=== PATIENT | female | born 1945 | race Caucasian/White ===

== ENCOUNTER 2019-12-19 02:26 | Emergency (ER) | payer MEDICARE, MEDICAID, SELFPAY ==
[2019-12-19 02:27] VITALS: BP 156/105; PULSE 101; RESP 18; TEMP 36.7; O2SAT 99
--- NOTE | 2019-12-19 02:28 | ED_ITS ---
Entered by Trudy David, acting as scribe for Dieudonne Solis MD HPI - Chest Pain General: Chief Complaint: Chest Pain Stated Complaint: CP/SOB Time Seen by Provider: 12/19/19 02:29 Source: patient and EMS Mode of arrival: EMS History of Present Illness: HPI narrative: 74 y/o female presents to the ED with complaint of intermittent chest pain and SOB since Monday. EMS reports she was awakened from sleep at 0130, this AM, with SOB, nausea and tightness in her chest. En route, pt was tachycardic and had an episode of SVT with a rate of 145. She reports a hx of Afib. complaint: chest pain and other (SOB) Onset (ago): hour(s) Timing of current episode: episodic Prior episodes: Yes Onset: during rest Severity: similar to previous episodes Quality: tightness Associated symptoms: Reports dyspnea and nausea; Deny abdominal pain, fever(s) or vomiting Review of Systems Const: Denies: fever, chills, body aches or change in appetite Eyes: Denies: blurry vision or eye discomfort ENMT: Denies: throat pain or dental pain Card: Reports: chest pain Resp: Reports: shortness of breath GI: Reports: nausea; Denies: abdominal pain, vomiting or diarrhea : Denies: painful urination Musc: Denies: neck pain or back pain Skin/Breast: Denies: rash Neuro: Denies: headache Psych: Denies: depression Caleb/Lymph: Denies: easy bruising All/Imm: Denies: hives [facility] ED PFSH: Medical History (Updated 12/19/19 @ 05:35 by Dieudonne Solis MD) Acquired hypothyroidism Anxiety Arteriosclerotic vascular disease B12 deficiency Colon polyp Dyslipidemia she feels she is intolerant to all statins Encounter for counseling for care management of patient with chronic conditions and complex health needs using nurse-based model Esophageal thickening Essential (primary) hypertension Essential tremor Excessive daytime sleepiness Lung nodule LLL 4-5 mm, new nodule in right upper lobe Myasthenia gravis Neuropathy Osteoarthritis of sacroiliac joint Osteoporosis Positive skin test for tuberculosis Type 2 diabetes mellitus Vitamin D deficiency Surgical History (Updated 11/05/19 @ 13:31 by Hemal Guillen DPM) History of bunionectomy Hx of appendectomy Hx of arthroscopy of right knee Hx of cholecystectomy Hx of hysterectomy, total (~1974) Hx of oral surgery Hx of tonsillectomy Social History Smoking and tobacco status: never smoked Alcohol intake: never Lives independently: Yes Household members: none Housing: Apartment Current occupational status: retired History of recent travel: No Current gender identity: Female Kalie/Ad[employer]ism: [employer] Physical Exam Const: COMMON NORMALS: oriented x3 GENERAL APPEARANCE: cooperative HENMT: COMMON NORMALS: normocephalic and head/scalp atraumatic HEAD & SCALP: normocephalic and atraumatic Eye: COMMON NORMALS: PERRL and EOMs intact bilaterally PUPIL: Yes PERRL Neck/C-Spine: COMMON NORMALS: full ROM and supple Chest: COMMONS NORMALS: inspection of chest normal and palpation of chest normal Resp: COMMON NORMALS: normal respiratory effort, no retractions, no use of accessory muscles and clear to auscultation bilaterally AUSCULTATION: clear to auscultation bilaterally Cardio: COMMON NORMALS: regular rhythm and no murmurs RATE: tachycardic RHYTHM: regular rhythm GI: COMMON NORMALS: normal to inspection, nondistended, normoactive bowel sounds, soft to palpation, non-tender and no masses PALPATION: Yes soft Extremity: COMMON NORMALS: normal to inspection and full ROM Neuro: COMMON NORMALS: oriented x3, moves all extremities and no focal motor deficits Psych: COMMON NORMALS: mental status grossly normal, thought process normal and cooperative THOUGHT PROCESS: normal thought process Skin: COMMON NORMALS: no rashes or lesions noted and no wounds GENERAL SKIN EXAM: no rashes or lesions noted Course 2 Vital Signs: Vital signs: Vital Signs Temperature 98.1 F 12/19/19 02:27 Pulse Rate 81 12/19/19 06:05 Respiratory Rate 17 12/19/19 06:05 Blood Pressure 122/68 12/19/19 06:05 Pulse Oximetry 94 12/19/19 06:05 MDM - Chest Pain MDM Narrative: Medical decision making narrative: Patient presents here with chest pain that is atypical in nature. Her initial and repeat troponins are n ormal. CT scan of her chest showed no pulmonary embolism or dissection. Patient is well-appearing here and is stable for discharge. Lab Data: Labs: Lab Results 12/19/19 12/19/19 12/19/19 Range/Units 02:56 02:56 02:56 WBC 7.7 (4.0-10.0) 10^3/ uL RBC 4.15 (4.1-5.3) 10^6/u L Hgb 13.8 (11.5-15.3) g/dL Hct 40.8 (37.0-47.0) % MCV 98.3 (81-99) fL MCH 33.3 (28.0-34.0) pg MCHC 33.8 (30.0-36.0) g/dL RDW 12.7 (12.1-15.1) % Plt Count 204 (130-400) 10^3/c mm MPV 12.2 H (7.4-10.4) fL Neut % (Auto) 64.8 % Lymph % (Auto) 23.6 % [place] % (Auto) 6.9 % Eos % (Auto) 3.9 % Baso % (Auto) 0.7 % Neut # (Auto) 5.0 (1.8-7.7) 10^3/u L Lymph # (Auto) 1.8 (0.8-4.8) 10^3/u L [place] # (Auto) 0.5 (0.2-0.9) 10^3/u L Eos # (Auto) 0.3 (0.0-0.8) 10^3/u L Baso # (Auto) 0.1 (0.0-0.1) 10^3/u L Nucleated RBC % (a uto) 0 % Nucleated RBCs # 0.0 /100WBC PT 12.60 (10.5-13.3) SECO NDS INR 0.95 (0.8-1.2) D-Dimer 0.84 H (0-0.59) ug/mIFE U Sodium 140 (136-145) mmol/L Potassium 4.1 (3.5-5.1) mmol/L Chloride 103 (98-107) mmol/L Carbon Dioxide 22 (22-29) mmol/L Anion Gap 19.1 H (5-19) BUN 13 (8-23) mg/dL Creatinine 0.9 (0.5-0.9) mg/dL Glucose 178 H (65-115) mg/dL Calculated Osmolal ity 291 (285-295) mOsm/k g Calcium 9.5 (8.5-10.5) mg/dL Total Bilirubin 0.2 (0.15-1.2) mg/dL AST 16 (0-32) U/L ALT 15 (0-33) U/L Alkaline Phosphata se 72 (35-105) IU/L Troponin T Baselin e (0-10) ng/mL Troponin T 120 Min [place] (0-10) ng/mL Delta Troponin T (0-10) ABS# Total Protein 7.5 (6.6-8.7) g/dL Albumin 3.9 (3.5-5.2) g/dL Globulin 3.6 (1.3-4.6) g/dL 12/19/19 12/19/19 Range/Units 02:56 04:29 WBC (4.0-10.0) 10^3/ uL RBC (4.1-5.3) 10^6/u L Hgb (11.5-15.3) g/dL Hct (37.0-47.0) % MCV (81-99) fL MCH (28.0-34.0) pg MCHC (30.0-36.0) g/dL RDW (12.1-15.1) % Plt Count (130-400) 10^3/c mm MPV (7.4-10.4) fL Neut % (Auto) % Lymph % (Auto) % [place] % (Auto) % Eos % (Auto) % Baso % (Auto) % Neut # (Auto) (1.8-7.7) 10^3/u L Lymph # (Auto) (0.8-4.8) 10^3/u L [place] # (Auto) (0.2-0.9) 10^3/u L Eos # (Auto) (0.0-0.8) 10^3/u L Baso # (Auto) (0.0-0.1) 10^3/u L Nucleated RBC % (a uto) % Nucleated RBCs # /100WBC PT (10.5-13.3) SECO NDS INR (0.8-1.2) D-Dimer (0-0.59) ug/mIFE U Sodium (136-145) mmol/L Potassium (3.5-5.1) mmol/L Chloride (98-107) mmol/L Carbon Dioxide (22-29) mmol/L Anion Gap (5-19) BUN (8-23) mg/dL Creatinine (0.5-0.9) mg/dL Glucose (65-115) mg/dL Calculated Osmolal ity (285-295) mOsm/k g Calcium (8.5-10.5) mg/dL Total Bilirubin (0.15-1.2) mg/dL AST (0-32) U/L ALT (0-33) U/L Alkaline Phosphata se (35-105) IU/L Troponin T Baselin e 9 (0-10) ng/mL Troponin T 120 Min [place] 9.15 (0-10) ng/mL Delta Troponin T 0.15 (0-10) ABS# Total Protein (6.6-8.7) g/dL Albumin (3.5-5.2) g/dL Globulin (1.3-4.6) g/dL EKG Data^: EKG 1: Attestation: I personally reviewed and interpreted this EKG as follows: EKG interpretation date: 12/19/19 EKG interpretation time: 02:47 Interpretation: sinus tach hr [address] or t wave abnormalities qrs 84 qtc 391 Discharge Plan Discharge Patient Disposition: Home, Self-Care Clinical Impression: Chest pain Qualifiers: Chest pain type: unspecified Qualified Code(s): R07.9 - Chest pain, unspecified Condition: Stable Prescriptions: No Action levothyroxine 100 mcg tablet 100 mcg PO ONCE RF: 0 glipizide 5 mg tablet 5 mg PO DAILY RF: 0 lisinopril 5 mg tablet 5 mg PO DAILY RF: 0 loratadine 10 mg capsule 10 mg PO ONCE RF: 0 albuterol sulfate [ProAir HFA] 90 mcg/actuation HFA aerosol inhaler 2 puff INHALATION Q6H PRN (Reason: Shortness Of Breath) RF: 0 nitroglycerin [Nitrostat] 0.4 mg tablet, sublingual 0.4 mg SUBLINGUAL Q5M PRN (Reason: Chest Pain) RF: 0 cyanocobalamin (vitamin B-12) 1,000 mcg/mL solution 1,000 mcg IM .MONTHLY RF: 0 (DME) pen needle, diabetic [Ultra-Thin II Ins Pen [place]] 29 gauge x 1/2 needle See Rx Instructions .ROUTE .MEDSUPPLY Qty: 30 RF: 0 Levemir FlexTouch U-100 Insuln 100 unit/mL (3 mL) insulin pen 50 unit SUBCUT .HS RF: 0 cholecalciferol (vitamin D3) 2,000 unit tablet 4,000 unit PO ONCE RF: 0 epinephrine 0.3 mg/0.3 mL auto-injector 0.3 mg IM ONCE PRN (Reason: anaphylaxis) RF: 0 (DME) True Metrix Glucose Test Strip Strip See Rx Instructions .ROUTE .MEDSUPPLY Qty: 10 RF: 0 ranitidine HCl 150 mg tablet 150 mg PO BID Qty: 60 RF: 2 mometasone [Nasonex] 50 mcg/actuation spray,non-aerosol 2 spray INTRANASAL DAILY PRN (Reason: allergy symptoms) Qty: 17 RF: 12 Discharge Orders: Discharge Order (Routine); Ordered 12/19/19 Ordered By: Dieudonne Solis Referrals: Nayeli Centeno APN [Family Provider] - Lynette Smalls MD [Primary Care Provider] - Discharge Diet: Advance as tolerated Discharge Activity: Resume usual activity Patient Instructions: Chest Pain (ED) Discharge Date/Time: 12/19/19 07:36 Coding Level of Care Code ED Spray Worker for Chg Fwd Exam Comprehensive The documentation recorded by the Frankie barajas Ashley, accurately reflects the service I personally performed and the decisions made by Will giraldo Korby, MD
--- NOTE | 2019-12-19 02:33 | XR_ITS ---
WS: [id number] Portable AP upright chest, 12/19/2019 Clinical Data: cp Comparison: Portable chest, 12/25/2018. Findings: No nodules, masses or effusions are seen. The heart is normal. The pulmonary vascularity is not increased. No pneumonia or pneumothorax is seen. The aortic arch and descending aorta show mild calcification and tortuosity. XR/XR chest 1V portable [id number] Impression: Atherosclerosis.
--- NOTE | 2019-12-19 02:33 | ECG_ITS ---
Measurements Intervals [place] Rate: 102 P: 63 NV: 176 QRS: 42 QRSD: 84 T: 42 QT: 332 QTc: 434 SINUS TACHYCARDIA ABNORMAL RHYTHM ECG INTERPRETATION BASED ON A DEFAULT AGE OF 40 YEARS Compared to ECG 12/25/2018 05:02:16 Sinus rhythm no longer present Electronically Signed On 12-19-2019 17:22:02 CDT by Wilfredo Franklin M.D. [email or web address]
[2019-12-19] MEDS: aspirin 81 mg Chew Tablet 324 MG PO (02:54)
[2019-12-19 02:58] VITALS: O2SAT 96
[2019-12-19 03:31] LABS: Alanine Aminotransferase 15 U/L (0-33); Albumin Level 3.9 g/dL (3.5-5.2); Alkaline Phosphatase 72 IU/L (35-105); Anion Gap 19.1 (5-19); Aspartate Amino Transferase 16 U/L (0-32); Blood Urea Nitrogen 13 mg/dL (8-23); Calcium 9.5 mg/dL (8.5-10.5); Carbon Dioxide 22 mmol/L (22-29); Chloride 103 mmol/L (98-107); Globulin 3.6 g/dL (1.3-4.6); Glucose 178 mg/dL (65-115); Osmolality Calculated 291 mOsm/kg (285-295); Potassium 4.1 mmol/L (3.5-5.1); Sodium 140 mmol/L (136-145); Total Bilirubin 0.2 mg/dL (0.15-1.2); Total Protein 7.5 g/dL (6.6-8.7)
[2019-12-19 03:34] LABS: Troponin(5th) Baseline 9 ng/mL (0-10)
[2019-12-19 03:40] VITALS: BP 127/87; PULSE 92; RESP 18; O2SAT 98
[2019-12-19 03:45] LABS: INR 0.95 (0.8-1.2)
[2019-12-19 03:46] LABS: D Dimer 0.84 ug/mIFEU (0-0.59)
[2019-12-19 03:50] LABS: Basophils # 0.1 10^3/uL (0.0-0.1); Basophils % 0.7 %; Eosinophils # 0.3 10^3/uL (0.0-0.8); Eosinophils % 3.9 %; Hematocrit 40.8 % (37.0-47.0); Hemoglobin 13.8 g/dL (11.5-15.3); Lymphocytes # 1.8 10^3/uL (0.8-4.8); Lymphocytes % 23.6 %; Mean Corpuscular HGB Conc 33.8 g/dL (30.0-36.0); Mean Corpuscular Hemoglobin 33.3 pg (28.0-34.0); Mean Corpuscular Volume 98.3 fL (81-99); Mean Platelet Volume 12.2 fL (7.4-10.4); Monocytes # 0.5 10^3/uL (0.2-0.9); Monocytes % 6.9 %; Neutrophils % 64.8 %; Nucleated Red Blood Cells % 0 %; Platelet Count 204 10^3/cmm (130-400); Red Blood Count 4.15 10^6/uL (4.1-5.3); Red Cell Distribution Width 12.7 % (12.1-15.1); White Blood Count 7.7 10^3/uL (4.0-10.0)
--- NOTE | 2019-12-19 04:03 | CTR_ITS ---
PROCEDURE INFORMATION: Exam: CT Angiography Chest With Contrast Exam date and time: 12/19/2019 4:13 AM Age: 74 years old Clinical indication: Cough and shortness of breath; Chest pain; Type not specified; Additional info: Cp TECHNIQUE: Imaging protocol: Computed tomographic angiography of the chest with intravenous contrast. 3D rendering: MIP and/or 3D reconstructed images were created by the technologist. Total DLP: 623.65 mGy-cm Radiation optimization: All CT scans at this facility use at least one of these dose optimization techniques: automated exposure control; mA and/or kV adjustment per patient size (includes targeted exams where dose is matched to clinical indication); or iterative reconstruction. Contrast material: VISI; Contrast volume: 95 ml; Contrast route: 20G; COMPARISON: CTA Chest-Pulmonary Emb [id number] 12/25/2018 3:19 AM FINDINGS: Pulmonary arteries: No dissection. No visualized embolism as characterized to the proximal segmental level. Aorta: Calcification of the aorta. Lungs: Lungs are well aerated without a focal area of consolidation. Pleural space: Unremarkable. No pneumothorax. No pleural effusion. Heart: No pericardial effusion Small amount of fluid within the superior pericardial recess. Mediastinum: Soft tissues of the mediastinum appear unremarkable. Small hiatal hernia. Thickening of the distal esophagus. Recommend further evaluation. Liver: 1 cm cyst right lobe of the liver posteriorly Gallbladder and bile ducts: Surgical clips in the region of the gallbladder fossa. Prominence of the biliary radicals likely related to the prior cholecystectomy and hence the reservoir effect. Please correlate with LFTs. Kidneys and ureters: 4 cm cyst left kidney Lymph nodes: Unremarkable. No enlarged lymph nodes. Bones/joints: Unremarkable. No acute fracture. Soft tissues: Unremarkable. Other findings: thoracic inlet is unremarkable. CT/CT angio chest PE protcl [id number] IMPRESSION: 1. No dissection. No visualized embolism as characterized to the proximal segmental level. 2. Lungs are well aerated without a focal area of consolidation. 3. Small hiatal hernia. Thickening of the distal esophagus. Recommend further evaluation. Radiation Dose CTDIVOL = (mGy): DLP = 623.65 (mGy-cm)
[2019-12-19 04:32] VITALS: PULSE 92; RESP 15; O2SAT 97
[2019-12-19] MEDS: hydrocortisone 100 mg/2 mL SDV IVP (04:36)
[2019-12-19] MEDS: diphenhydrAMINE 50 mg/mL SDV 1mL IVP (04:36)
[2019-12-19 04:52] LABS: Troponin 5 2HR 9.15 ng/mL (0-10); Troponin 5 2HR Delta 0.15 ABS# (0-10)
[2019-12-19 05:44] VITALS: BP 139/78; PULSE 88; RESP 17; O2SAT 96
[2019-12-19 06:05] VITALS: BP 122/68; PULSE 81; RESP 17; O2SAT 94
[2019-12-19] MEDS: iodixanol 320 mg/mL 100mL Btl IV (16:43)
== END 2019-12-19 07:36 | disposition home or self-care (01) ==
PROVIDERS: Emergency Provider Emergency Medicine; Family Provider Nurse Practitioner Family; PCP Family Medicine
DX: R07.9 Chest pain, unspecified (principal); I48.91 Unspecified atrial fibrillation; E03.9 Hypothyroidism, unspecified; E78.5 Hyperlipidemia, unspecified; I10 Essential (primary) hypertension; E11.40 Type 2 diabetes mellitus with diabetic neuropathy, unspecified; Z79.84 Long term (current) use of oral hypoglycemic drugs
CPT/HCPCS: 12345; 36415; 71045; 71275; 80053; 84484; 85025; 85378; 85610; 93005; 96374; 96375; 99283; 99284; J1200; J1720; Q9967

== ENCOUNTER 2019-12-25 23:32 | Emergency (ER) | payer MEDICARE, MEDICAID, SELFPAY ==
[2019-12-25 23:49] VITALS: BP 159/70; PULSE 84; RESP 16; TEMP 36.6; O2SAT 98; BMI 29.6
--- NOTE | 2019-12-25 23:56 | W.ED.GENADLT ---
HPI - General Adult General: Chief complaint: Shortness of Breath/Dyspnea Stated complaint: SORE THROAT/ KIDNEY PAIN Time Seen by Provider: 12/25/19 23:38 Source: patient Mode of arrival: EMS Limitations: no limitations History of Present Illness: HPI narrative: Patient is a 74-year-old female who presents to ED today with complaints of throat scratchiness, painful swallowing, and thinking it might close . Patient states her neighbor was recently spraying pesticides and thinks maybe she is having an allergic reaction to that. In addition patient states she has been having a lot of nasal congestion and postnasal drip so wonders if that could be causing her symptoms as well. Patient also states she has a history of myasthenia gravis and wonders if she is having a myasthenia reaction. Patient states she has not had any form of myasthenia reactions in several several years. She is not having any difficulty swallowing or controlling her secretions. She is not having any difficulty breathing or shortness of breath. Patient also has a separate complaint of right flank pain and believes she might have a kidney stone. She is not having any dysuria, frequency, urgency, hematuria. She has not had any abdominal pain, nausea, vomiting. She has not been running any fever/chills. Onset (ago): hour(s) Associated symptoms: Deny chest pain, dyspnea, headache(s), malaise, nausea, rash, palpitations, syncope or vomiting Review of Systems Const: Denies: fever, chills, body aches, change in appetite, change in weight, fatigue or malaise Eyes: Denies: change in vision, blurry vision or photophobia ENMT: Reports: throat pain, painful swallowing, nasal congestion and post nasal drip; Denies: uvular edema, enlarged tonsils, hoarseness, mouth pain, swelling of lips/tongue, ear discharge or nasal discharge Card: Denies: chest pain, palpitations, irregular heart rhythm, edema, lightheadedness, syncope or pre-syncope Resp: Denies: shortness of breath, productive cough, coughing up blood or chest congestion GI: Denies: abdominal pain, nausea, vomiting or diarrhea : Reports: flank pain; Denies: difficulty urinating, painful urination, urinary frequency, urinary urgency, urinary hesitancy, blood in urine or pelvic pain Musc: Denies: neck pain or back pain Skin/Breast: Denies: rash Neuro: Denies: headache, numbness in extremities, weakness in extremities or changes in sensation PFSH ED PFSH: Medical History (Updated 12/26/19 @ 01:44 by ROMINA Lopez) Acquired hypothyroidism Anxiety Arteriosclerotic vascular disease B12 deficiency Colon polyp Dyslipidemia she feels she is intolerant to all statins Encounter for counseling for care management of patient with chronic conditions and complex health needs using nurse-based model Esophageal thickening Essential (primary) hypertension Essential tremor Excessive daytime sleepiness Lung nodule LLL 4-5 mm, new nodule in right upper lobe Myasthenia gravis Neuropathy Osteoarthritis of sacroiliac joint Osteoporosis Positive skin test for tuberculosis Type 2 diabetes mellitus Vitamin D deficiency Surgical History (Updated 11/05/19 @ 13:31 by Hemal Guillen DPM) History of bunionectomy Hx of appendectomy Hx of arthroscopy of right knee Hx of cholecystectomy Hx of hysterectomy, total (~1974) Hx of oral surgery Hx of tonsillectomy Social History Smoking and tobacco status: never smoked Alcohol intake: never Lives independently: Yes Household members: none Housing: Apartment Current occupational status: retired History of recent travel: No Current gender identity: Female Kalie/P[employer]al: [employer] Physical Exam Const: COMMON NORMALS: no apparent distress, average body habitus, oriented x3, no limitations, healthy appearing, alert and well nourished HENMT: COMMON NORMALS: normocephalic, head/scalp atraumatic, hearing grossly normal bilaterally, external ears normal, EAC's normal, TM's normal bilaterally, external nose normal, nasal mucous membranes and turbinates normal, moist oral mucous membranes, oropharynx normal and gingiva normal HEAD & SCALP: normocephalic and atraumatic NOSE: external nose normal and nasal mucous membranes and turbinates normal EXTERNAL EAR: Yes external ears normal EXTERNAL AUDITORY CANAL: EAC's normal TYMPANIC MEMBRANE: TM's normal bilaterally MOUTH: oral and palatal mucosa normal, lip normal and tongue normal TEETH & GINGIVA: Yes edentulous THROAT: posterior oropharynx normal, tonsils normal and uvula midline; no uvular edema Neck/C-Spine: COMMON NORMALS: full ROM and no lymphadenopathy Resp: COMMON NORMALS: normal respiratory effort and clear to auscultation bilaterally AUSCULTATION: clear to auscultation bilaterally Cardio: COMMON NORMALS: regular rate and regular rhythm RATE: regular rate RHYTHM: regular rhythm GI: COMMON NORMALS: normal to inspection, nondistended, normoactive bowel sounds, soft to palpation, non-tender, no hepatosplenomegaly and no masses PALPATION: Yes soft and Yes no hepatosplenomegaly : BLADDER/KIDNEY EXAM: Yes CVA tenderness on the right Back/Pelvis: GENERAL BACK: Yes CVA tenderness Extremity: COMMON NORMALS: normal to inspection Neuro: COMMON NORMALS: oriented x3 SENSORIUM/ORIENTATION: Yes alert Skin: COMMON NORMALS: no rashes or lesions noted GENERAL SKIN EXAM: no rashes or lesions noted Course Vital Signs: Vital signs: Vital Signs Temperature 97.8 F 12/25/19 23:49 Pulse Rate 93 12/26/19 01:10 Respiratory Rate 16 12/26/19 01:10 Blood Pressure 175/77 12/26/19 01:10 Pulse Oximetry 98 12/26/19 01:10 MDM - General Adult MDM Narrative: Medical decision making narrative: Patient has no evidence of angioedema on her exam. Her symptoms of painful swallowing and throat itchiness are not consistent with a myasthenia gravis crisis especially in the absence of other respiratory symptoms. She had blood work and a UA performed because of the right flank pain and these are all found to be normal. She has no hematuria or signs of infection at this time. Recommend she follow-up with PCP for this. Patient was given steroids and Benadryl for the throat. She does not feel her symptoms have worsened at all throughout her stay. At this point patient is stable to be discharged. Lab Data: Labs: Lab Results 12/25/19 12/25/19 12/26/19 Range/Units 00:03 00:03 01:05 WBC 7.5 (4.0-10.0) 10^3/ uL RBC 4.09 L (4.1-5.3) 10^6/u L Hgb 13.4 (11.5-15.3) g/dL Hct 40.5 (37.0-47.0) % MCV 99.0 (81-99) fL MCH 32.8 (28.0-34.0) pg MCHC 33.1 (30.0-36.0) g/dL RDW 12.9 (12.1-15.1) % Plt Count 168 (130-400) 10^3/c mm MPV 12.6 H (7.4-10.4) fL Neut % (Auto) 61.0 % Lymph % (Auto) 28.4 % [place] % (Auto) 6.3 % Eos % (Auto) 3.1 % Baso % (Auto) 0.9 % Neut # (Auto) 4.6 (1.8-7.7) 10^3/u L Lymph # (Auto) 2.1 (0.8-4.8) 10^3/u L [place] # (Auto) 0.5 (0.2-0.9) 10^3/u L Eos # (Auto) 0.2 (0.0-0.8) 10^3/u L Baso # (Auto) 0.1 (0.0-0.1) 10^3/u L Nucleated RBC % (a uto) 0 % Nucleated RBCs # 0.0 /100WBC Sodium 137 (136-145) mmol/L Potassium 4.1 (3.5-5.1) mmol/L Chloride 100 (98-107) mmol/L Carbon Dioxide 26 (22-29) mmol/L Anion Gap 15.1 (5-19) BUN 12 (8-23) mg/dL Creatinine 0.9 (0.5-0.9) mg/dL Glucose 216 H (65-115) mg/dL Calculated Osmolal ity 287 (285-295) mOsm/k g Calcium 9.4 (8.5-10.5) mg/dL Total Bilirubin 0.4 (0.15-1.2) mg/dL AST 20 (0-32) U/L ALT 22 (0-33) U/L Alkaline Phosphata se 63 (35-105) IU/L Total Protein 7.4 (6.6-8.7) g/dL Albumin 4.0 (3.5-5.2) g/dL Globulin 3.4 (1.3-4.6) g/dL Urine Color Yellow (Yellow) Urine Appearance Clear (CLEAR) Urine pH 5 (5-7) Ur Specific Gravit y 1.015 (1.005-1.030) Urine Protein Neg (Negative) Urine Glucose (UA) Norm (Normal) Urine Ketones 1+ H (Negative) Urine Blood Neg (Negative) Urine Nitrate Negative (Negative) Urine Bilirubin Neg (NEGATIVE) Urine Urobilinogen Norm (Negative) mg/dL Ur Leukocyte Anum ase Negative (Negative) Discharge Plan Discharge Patient Disposition: Home, Self-Care Clinical Impression: Right flank pain, Pain in throat Condition: Stable Prescriptions: No Action levothyroxine 100 mcg tablet 100 mcg PO ONCE RF: 0 glipizide 5 mg tablet 5 mg PO DAILY RF: 0 lisinopril 5 mg tablet 5 mg PO DAILY RF: 0 loratadine 10 mg capsule 10 mg PO ONCE RF: 0 albuterol sulfate [ProAir HFA] 90 mcg/actuation HFA aerosol inhaler 2 puff INHALATION Q6H PRN (Reason: Shortness Of Breath) RF: 0 nitroglycerin [Nitrostat] 0.4 mg tablet, sublingual 0.4 mg SUBLINGUAL Q5M PRN (Reason: Chest Pain) RF: 0 cyanocobalamin (vitamin B-12) 1,000 mcg/mL solution 1,000 mcg IM .MONTHLY RF: 0 (DME) pen needle, diabetic [Ultra-Thin II Ins Pen [place]] 29 gauge x 1/2 needle See Rx Instructions .ROUTE .MEDSUPPLY Qty: 30 RF: 0 Levemir FlexTouch U-100 Insuln 100 unit/mL (3 mL) insulin pen 50 unit SUBCUT .HS RF: 0 cholecalciferol (vitamin D3) 2,000 unit tablet 4,000 unit PO ONCE RF: 0 epinephrine 0.3 mg/0.3 mL auto-injector 0.3 mg IM ONCE PRN (Reason: anaphylaxis) RF: 0 (DME) True Metrix Glucose Test Strip Strip See Rx Instructions .ROUTE .MEDSUPPLY Qty: 10 RF: 0 ranitidine HCl 150 mg tablet 150 mg PO BID Qty: 60 RF: 2 mometasone [Nasonex] 50 mcg/actuation spray,non-aerosol 2 spray INTRANASAL DAILY PRN (Reason: allergy symptoms) Qty: 17 RF: 12 Discharge Orders: Discharge Order (Routine); Ordered 12/26/19 Ordered By: Debbi Rangel Referrals: Nayeli Centeno APN [Family Provider] - Lynette Smalls MD [Primary Care Provider] - Discharge Diet: Usual diet Discharge Activity: Increase activity as tolerated Coding Level of Care Code ED Refrigerating Engineer Head for Chg Fwd Exam Comprehensive
[2019-12-26 00:16] LABS: Basophils # 0.1 10^3/uL (0.0-0.1); Basophils % 0.9 %; Eosinophils # 0.2 10^3/uL (0.0-0.8); Eosinophils % 3.1 %; Hematocrit 40.5 % (37.0-47.0); Hemoglobin 13.4 g/dL (11.5-15.3); Lymphocytes # 2.1 10^3/uL (0.8-4.8); Lymphocytes % 28.4 %; Mean Corpuscular HGB Conc 33.1 g/dL (30.0-36.0); Mean Corpuscular Hemoglobin 32.8 pg (28.0-34.0); Mean Platelet Volume 12.6 fL (7.4-10.4); Monocytes # 0.5 10^3/uL (0.2-0.9); Monocytes % 6.3 %; Neutrophils # 4.6 10^3/uL (1.8-7.7); Nucleated Red Blood Cells % 0 %; Platelet Count 168 10^3/cmm (130-400); Red Blood Count 4.09 10^6/uL (4.1-5.3); Red Cell Distribution Width 12.9 % (12.1-15.1); White Blood Count 7.5 10^3/uL (4.0-10.0)
[2019-12-26 00:32] LABS: Anion Gap 15.1 (5-19); Aspartate Amino Transferase 20 U/L (0-32); Blood Urea Nitrogen 12 mg/dL (8-23); Calcium 9.4 mg/dL (8.5-10.5); Carbon Dioxide 26 mmol/L (22-29); Chloride 100 mmol/L (98-107); Globulin 3.4 g/dL (1.3-4.6); Glucose 216 mg/dL (65-115); Osmolality Calculated 287 mOsm/kg (285-295); Potassium 4.1 mmol/L (3.5-5.1); Sodium 137 mmol/L (136-145); Total Bilirubin 0.4 mg/dL (0.15-1.2); Total Protein 7.4 g/dL (6.6-8.7)
[2019-12-26] MEDS: diphenhydrAMINE 50 mg/mL SDV 1mL 25 MG IM (01:00)
[2019-12-26 01:10] VITALS: BP 175/77; PULSE 93; RESP 16; O2SAT 98
[2019-12-26 01:25] LABS: Add Urine Microscopic? NO
[2019-12-26 01:26] LABS: Bilirubin Urine Neg (NEGATIVE); Blood Urine Neg (Negative); Glucose Urine UA Norm (Normal); Ketones Urine 1+ (Negative); Leukocyte Esterase Urine Negative (Negative); Nitrate Urine Negative (Negative); Protein Urine Neg (Negative); Specific Gravity, Urine 1.015 (1.005-1.030); Urine Appearance Clear (CLEAR); Urine Color Yellow (Yellow); Urobilinogen Urine Norm (Negative); pH Urine 5 (5-7)
[2019-12-26 01:27] LABS: Alanine Aminotransferase 22 U/L (0-33); Alkaline Phosphatase 63 IU/L (35-105)
[2019-12-26 03:01] VITALS: BP 141/82; PULSE 87; RESP 18; O2SAT 97
== END 2019-12-26 03:02 | disposition home or self-care (01) ==
PROVIDERS: Emergency Provider Physician Assistant; Family Provider Nurse Practitioner Family; PCP Family Medicine
DX: R10.9 Unspecified abdominal pain (principal); J02.9 Acute pharyngitis, unspecified; E03.9 Hypothyroidism, unspecified; E78.5 Hyperlipidemia, unspecified; I10 Essential (primary) hypertension; E11.40 Type 2 diabetes mellitus with diabetic neuropathy, unspecified; Z79.84 Long term (current) use of oral hypoglycemic drugs
CPT/HCPCS: 12345; 36415; 80053; 81003; 85025; 96372; 99282; 99283; A9270; J1200; J2930

== ENCOUNTER → 2020-02-24 16:30 | Outpatient (BNVA) | payer MEDICARE, MEDICAID, SELFPAY | PROVIDERS: Family Provider Nurse Practitioner Family; PCP Family Medicine; Visit Provider Family Medicine | DX: H66.92 Otitis media, unspecified, left ear (principal); E11.42 Type 2 diabetes mellitus with diabetic polyneuropathy; E03.9 Hypothyroidism, unspecified | CPT/HCPCS: 80053; 80061; 83036; 84443; 85025 ==

== ENCOUNTER → 2020-06-22 09:49 | Outpatient (BNVA) | payer MEDICARE, MEDICAID, SELFPAY | PROVIDERS: Family Provider Nurse Practitioner Family; PCP Family Medicine; Visit Provider Specialist | DX: R25.1 Tremor, unspecified (principal); G70.00 Myasthenia gravis without (acute) exacerbation | CPT/HCPCS: 99214 ==

== ENCOUNTER → 2020-07-14 13:24 | Outpatient (BNVA) | payer MEDICARE, MEDICAID, SELFPAY | PROVIDERS: Family Provider Nurse Practitioner Family; PCP Family Medicine; Visit Provider Nurse Practitioner Family | DX: Z11.59 Encounter for screening for other viral diseases (principal); J06.9 Acute upper respiratory infection, unspecified; Z20.828 Contact with and (suspected) exposure to other viral communicable diseases | CPT/HCPCS: 87635 ==

== ENCOUNTER → 2020-08-04 09:45 | Outpatient (BNVA) | payer MEDICARE, MEDICAID, SELFPAY | PROVIDERS: Family Provider Nurse Practitioner Family; PCP Family Medicine; Visit Provider Family Medicine | DX: E03.9 Hypothyroidism, unspecified (principal); E11.42 Type 2 diabetes mellitus with diabetic polyneuropathy; J45.20 Mild intermittent asthma, uncomplicated | CPT/HCPCS: 83036 ==

== ENCOUNTER → 2020-08-10 08:18 | Outpatient (BNVA) | payer MEDICARE, MEDICAID, SELFPAY | PROVIDERS: Family Provider Nurse Practitioner Family; PCP Family Medicine; Visit Provider Family Medicine | DX: E03.9 Hypothyroidism, unspecified (principal); E11.42 Type 2 diabetes mellitus with diabetic polyneuropathy | CPT/HCPCS: 80053; 80061; 84443 ==

== ENCOUNTER → 2020-12-15 11:03 | Outpatient (BNVA) | payer MEDICARE, MEDICAID, SELFPAY | PROVIDERS: Family Provider Nurse Practitioner Family; PCP Family Medicine; Visit Provider Family Medicine | DX: R10.11 Right upper quadrant pain (principal); E03.9 Hypothyroidism, unspecified; E11.42 Type 2 diabetes mellitus with diabetic polyneuropathy | CPT/HCPCS: 80053; 80061; 82150; 83036; 83690; 84443; 87086 ==

== ENCOUNTER 2020-12-21 23:10 | Emergency (ER) | payer MEDICARE, MEDICAID, SELFPAY ==
[2020-12-21 23:16] VITALS: BP 145/103; PULSE 126; RESP 16; TEMP 37.3; O2SAT 97; BMI 30.4
--- NOTE | 2020-12-21 23:21 | W.ED.GENADLT ---
HPI - General Adult General: Chief complaint: Urogenital-Female Stated complaint: FLANK PAIN/ UTI Time Seen by Provider: 12/21/20 23:12 Source: patient and RN notes reviewed Mode of arrival: EMS Limitations: no limitations History of Present Illness: HPI narrative: This patient presents to the emergency department with complaint of flank pain. This has been going on for about 3 weeks. Patient was diagnosed with a urinary tract infection with PCP and has been put on antibiotics but states he is still having intermittent flank pain. Patient states multiple allergies related to medications so does not want any pain medication upon arrival. Just evaluation. Onset (ago): week(s) (5) Pain Consistency: intermittent Associated symptoms: Deny chest pain, dyspnea, headache(s), nausea, rash, palpitations or vomiting Review of Systems General: Reports: 10 or more systems reviewed and unremarkable except in HPI and below Const: Denies: fever(s), chills, body aches or fatigue Eyes: Denies: change in vision or blurry vision ENMT: Denies: throat pain, hoarseness or mouth pain Card: Denies: chest pain or palpitations Resp: Denies: dyspnea GI: Denies: nausea or vomiting : Reports: flank pain; Denies: difficulty voiding, dysuria, urinary frequency, urinary urgency or urinary hesitancy Musc: Denies: neck pain, back pain, extremity pain, extremity swelling, joint pain, joint swelling, joint redness, joint warmth or limited range of motion Skin/Breast: Denies: rash Neuro: Denies: headache(s) Psych: Denies: anxiety or depression PFS ED PFSH: Medical History (Updated 12/22/20 @ 01:33 by Phillip Larry MD) Acquired hypothyroidism Anxiety Arteriosclerotic vascular disease B12 deficiency Colon polyp Dyslipidemia she feels she is intolerant to all statins Encounter for counseling for care management of patient with chronic conditions and complex health needs using nurse-based model Enrolled in chronic care management Esophageal thickening Essential (primary) hypertension Essential tremor Excessive daytime sleepiness Lung nodule LLL 4-5 mm, new nodule in right upper lobe Myasthenia gravis Neuropathy Osteoarthritis of sacroiliac joint Osteoporosis Positive skin test for tuberculosis Type 2 diabetes mellitus Vitamin D deficiency Surgical History History of bunionectomy Hx of appendectomy Hx of arthroscopy of right knee Hx of cholecystectomy Hx of hysterectomy, total (~1974) Hx of oral surgery Hx of tonsillectomy Family History Father , age 67 Stroke Cancer lung Mother Cancer melanoma, pancreatic CAD (coronary artery disease) multiple stents Social History Smoking and tobacco status: never smoked Alcohol intake: never Lives independently: Yes Household members: none Housing: Apartment Current occupational status: retired History of recent travel: No Current gender identity: Female Kalie/Confucianism: [employer] Female Reproductive History: Para: 2 Physical Exam Const: COMMON NORMALS: no acute distress, average body habitus, patient oriented x3, no limitations, healthy appearing, alert and well nourished HENMT: COMMON NORMALS: normocephalic, atraumatic, external ears normal, EAC's normal, TM's normal bilaterally, Normal external nose present and Normal nasal mucous membranes and turbinates present HEAD & SCALP: normocephalic and atraumatic NOSE: Normal external nose present and Normal nasal mucous membranes and turbinates present EXTERNAL EAR: Yes external ears normal EXTERNAL AUDITORY CANAL: EAC's normal TYMPANIC MEMBRANE: TM's normal bilaterally Neck/C-Spine: COMMON NORMALS: full ROM, no lymphadenopathy, supple, no meningeal signs, no JVD, Thyroid normal and No carotid bruits THYROID: Thyroid normal Chest: COMMONS NORMALS: normal inspection of the chest, normal palpation of entire chest wall, normal inspection of the breasts and normal palpation of the breasts Breast/axilla inspection: Yes normal inspection of the breasts BREAST/AXILLA PALPATION: Yes normal palpation of the breasts Resp: COMMON NORMALS: normal respiratory effort, No retractions, No use of accessory muscles, clear to auscultation bilaterally and percussion normal AUSCULTATION: clear to auscultation bilaterally PERCUSSION: percussion normal Cardio: COMMON NORMALS: no JVD, regular rate, regular rhythm, S1 normal heart sound present, S2 normal heart sound present, No gallops present (Cardio), No clicks present (Cardio), No murmurs present (Cardio), No rub (Cardio) and Peripheral pulses 2+ throughout RATE: regular rate RHYTHM: regular rhythm HEART SOUNDS: S1 normal heart sound present and S2 normal heart sound present PERIPHERAL PULSES: Peripheral pulses 2+ throughout GI: COMMON NORMALS: Normal to inspection, nondistended, normoactive bowel sounds present, Soft to palpation, non-tender, No hepatosplenomegaly present, no masses and no bruits PALPATION: Yes Soft to palpation and Yes No hepatosplenomegaly present : COMMON NORMALS: Yes no CVA tenderness, Yes normal external appearance, Yes normal appearance of the vagina, Yes normal appearance of the cervix, Yes normal bimanual exam, Yes No adnexal tenderness and Yes no masses BLADDER/KIDNEY EXAM: Yes no CVA tenderness BIMANUAL EXAM - VAGINA & UTERUS: Yes normal bimanual exam Back/Pelvis: COMMON NORMALS: no CVA tenderness, thoracic and lumbar spine normal to inspection, no thoracic nor lumbar tenderness, thoraco-lumbar ROM normal and straight leg raise negative bilaterally Extremity: COMMON NORMALS: normal to inspection, full ROM, capillary refill normal, no joint enlargement, no clubbing, cyanosis or edema, no calf tenderness and no pedal edema Neuro: COMMON NORMALS: patient oriented x3 SENSORIUM/ORIENTATION: Yes alert MENINGEAL SIGNS: Yes no meningeal signs Course Reevaluation(s): Reevaluation #1: Patient doing well with no complaints. Negative evaluation in the emergency department. I did discuss at length with patient better chronic conditions. Patient has multiple allergies to pain medications. Patient is instructed to follow-up with her primary care physician for any further evaluation or treatment. Time: 01:30 Vital Signs: Vital signs: Vital Signs Temperature 99.1 F 12/21/20 23:16 Pulse Rate 86 12/22/20 00:51 Respiratory Rate 16 12/22/20 00:51 Blood Pressure 121/90 12/22/20 00:51 Pulse Oximetry 97 12/22/20 00:51 MDM - General Adult Lab Data: Attestation: I reviewed the patient's lab results. Labs: Lab Results 12/21/20 12/21/20 12/22/20 Range/Units 00:03 00:03 00:00 WBC 11.8 H (4.0-10.0) 10^3/ uL RBC 4.22 (4.1-5.3) 10^6/u L Hgb 13.7 (11.5-15.3) g/dL Hct 40.7 (37.0-47.0) % MCV 96.4 (81-99) fL MCH 32.5 (28.0-34.0) pg MCHC 33.7 (30.0-36.0) g/dL RDW 12.9 (12.1-15.1) % Plt Count 186 (130-400) 10^3/c mm MPV 11.7 H (7.4-10.4) fL Neut % (Auto) 82.5 % Lymph % (Auto) 5.0 % [place] % (Auto) 7.0 % Eos % (Auto) 4.9 % Baso % (Auto) 0.3 % Neut # (Auto) 9.78 H (1.8-7.7) 10^3/u L Lymph # (Auto) 0.6 L (0.8-4.8) 10^3/u L [place] # (Auto) 0.8 (0.2-0.9) 10^3/u L Eos # (Auto) 0.6 (0.0-0.8) 10^3/u L Baso # (Auto) 0.0 (0.0-0.1) 10^3/u L Nucleated RBC % (a uto) 0 % Nucleated RBCs # 0.0 /100WBC Sodium 134 L (136-145) mmol/L Potassium 4.0 (3.5-5.1) mmol/L Chloride 97 L (98-107) mmol/L Carbon Dioxide 25 (22-29) mmol/L Anion Gap 16.0 (5-19) BUN 16 (8-23) mg/dL Creatinine 0.8 (0.5-0.9) mg/dL GFR Calculation Not Reportable Glucose 295 H (65-115) mg/dL Calculated Osmolal ity 290 (285-295) mOsm/k g Calcium 9.3 (8.5-10.5) mg/dL Total Bilirubin 0.4 (0.15-1.2) mg/dL AST 12 (0-32) U/L ALT 15 (0-33) U/L Alkaline Phosphata se 82 (35-105) IU/L Total Protein 7.1 (6.6-8.7) g/dL Albumin 4.1 (3.5-5.2) g/dL Globulin 3.0 (1.3-4.6) g/dL Urine Color Yellow (Yellow) Urine Appearance Clear (CLEAR) Urine pH 5 (5-7) Ur Specific Gravit y 1.020 (1.005-1.030) Urine Protein Neg (Negative) Urine Glucose (UA) 3+ H (Normal) Urine Ketones 1+ H (Negative) Urine Blood Neg (Negative) Urine Nitrate Negative (Negative) Urine Bilirubin Neg (Negative) Urine Urobilinogen Norm (Negative) mg/dL Ur Leukocyte Anum ase Negative (Negative) Imaging Data^: CT Abd/Pel: Attestation: I personally reviewed and interpreted this imaging study as follows: My impression: Negative for any acute findings Radiologist's impression: Negative for any acute findings. Discharge Plan Discharge Patient Disposition: Home Clinical Impression: Back pain, Diabetic peripheral neuropathy associated with type 2 diabetes mellitus Condition: Stable Prescriptions: No Action mometasone [Nasonex] 50 mcg/actuation spray,non-aerosol 2 spray INTRANASAL DAILY PRN (Reason: allergy symptoms) Qty: 17 RF: 12 nitrofurantoin monohyd/m-cryst [Macrobid] 100 mg capsule 100 mg PO Q12H 7 Days Qty: 14 RF: 0 glipizide 5 mg tablet 5 mg PO DAILY RF: 0 lisinopril 5 mg tablet 5 mg PO DAILY RF: 0 nitroglycerin [Nitrostat] 0.4 mg tablet, sublingual 0.4 mg SUBLINGUAL Q5M PRN (Reason: Chest Pain) RF: 0 (DME) True Metrix Glucose Test Strip Strip See Rx Instructions .ROUTE .MEDSUPPLY Qty: 10 RF: 0 levothyroxine [Synthroid] 100 mcg tablet See Rx Instructions .ROUTE .COMPLEX Qty: 90 RF: 5 albuterol sulfate [ProAir HFA] 90 mcg/actuation HFA aerosol inhaler 2 puff INHALATION Q6H PRN (Reason: Shortness Of Breath) Qty: 8.5 RF: 3 cyanocobalamin (vitamin B-12) 1,000 mcg/mL solution See Rx Instructions .ROUTE .COMPLEX Qty: 3 RF: 2 pen needle, diabetic [UltiCare Pen Needle] 32 gauge x 5/32 needle See Rx Instructions .ROUTE .COMPLEX Qty: 100 RF: 2 insulin detemir U-100 [Levemir FlexTouch U-100 Insuln] 100 unit/mL (3 mL) insulin pen See Rx Instructions .ROUTE .COMPLEX Qty: 15 RF: 2 Discharge Orders: Discharge ED (Routine); Ordered 12/22/20 Ordered By: Phillip Larry Referrals: Lynette Smalls MD [Primary Care Provider] - Discharge Diet: Advance as tolerated Discharge Activity: Resume usual activity Patient Instructions: Opioid Safety Activity Restrictions/Additional Instructions: Patient is to continue all medications. Follow-up with her PCP in 2 to 3 days. Alternate heat and ice for back pain. Coding Level of Care Code ED Sodium Methylate Operator for Chg Fwd Exam Comprehensive
--- NOTE | 2020-12-21 23:23 | CTR_ITS ---
PROCEDURE INFORMATION: Exam: CT Abdomen And Pelvis Without Contrast Exam date and time: 12/21/2020 11:40 PM Age: 75 years old Clinical indication: Abdominal pain; Flank; Right; Prior surgery; Surgery date: 6+ months; Surgery type: Hyst, appy; Additional info: Flank pain TECHNIQUE: Imaging protocol: Computed tomography of the abdomen and pelvis without contrast. Radiation optimization: All CT scans at this facility use at least one of these dose optimization techniques: automated exposure control; mA and/or kV adjustment per patient size (includes targeted exams where dose is matched to clinical indication); or iterative reconstruction. COMPARISON: CT Abdomen/Pelvis Renal [id number] 08/25/2014 9:35 AM RADIATION DOSE METRICS: Total DLP (mGy-cm): 1605.59 FINDINGS: Lungs: Diffuse reticular interstitial lung changes. Liver: Normal size. Small simple cyst in the hepatic dome stable from prior. Gallbladder and bile ducts: Cholecystectomy. Nondilated biliary system. Pancreas: Normal. No ductal dilation. Spleen: Normal. No splenomegaly. Adrenal glands: Normal. No mass. Kidneys and ureters: Simple exophytic left renal cortical cyst. Mild growth from comparison in 2013. No hydronephrosis. No renal stones. No suspicious renal mass. Stomach and bowel: No inflammatory changes of bowel or mesentery. No evidence of bowel obstruction or bowel perforation. Moderate fecal volume. Appendix: Appendectomy. Intraperitoneal space: No abdominopelvic fluid collection. Negative for pneumoperitoneum. Vasculature: Diffuse atherosclerosis of abdominal aorta without aneurysm. Lymph nodes: Unremarkable. No enlarged lymph nodes. Urinary bladder: Unremarkable as visualized. Reproductive: Hysterectomy. Bones/joints: Rightward convex scoliosis of the mid lumbar spine mildly increased from prior. Severe arthritis of the right hip joint similar to prior. No acute pathologic fractures or focal suspicious bone lesion. Soft tissues: Lumbar paraspinal muscles are symmetric. CT/CT abdomen pelvis wo con [id number] IMPRESSION: No acute pathology in the abdomen or pelvis. COMMENTS: Consistent with the [employer]'s Incidental Findings Committee white paper (J Am Silvano Radiol 2018): Any incidental renal lesion less than 1 cm or classified as too small to characterize, or any incidental cystic renal lesion characterized as simple-appearing, is likely benign. No follow-up imaging is recommended for these lesions per consensus recommendations based on imaging criteria. Radiation Dose CTDIVOL = (mGy): DLP = 1605.59 (mGy-cm)
[2020-12-22 00:09] LABS: Basophils % 0.3 %; Eosinophils # 0.6 10^3/uL (0.0-0.8); Eosinophils % 4.9 %; Hematocrit 40.7 % (37.0-47.0); Hemoglobin 13.7 g/dL (11.5-15.3); Lymphocytes # 0.6 10^3/uL (0.8-4.8); Mean Corpuscular HGB Conc 33.7 g/dL (30.0-36.0); Mean Corpuscular Hemoglobin 32.5 pg (28.0-34.0); Mean Corpuscular Volume 96.4 fL (81-99); Mean Platelet Volume 11.7 fL (7.4-10.4); Monocytes # 0.8 10^3/uL (0.2-0.9); Neutrophils # 9.78 10^3/uL (1.8-7.7); Neutrophils % 82.5 %; Nucleated Red Blood Cells % 0 %; Platelet Count 186 10^3/cmm (130-400); Red Blood Count 4.22 10^6/uL (4.1-5.3); Red Cell Distribution Width 12.9 % (12.1-15.1); White Blood Count 11.8 10^3/uL (4.0-10.0)
[2020-12-22 00:11] LABS: Add Urine Microscopic? NO
[2020-12-22 00:16] LABS: Glucose Urine UA 3+ (Normal); Protein Urine Neg (Negative); Urine Appearance Clear (CLEAR); Urine Color Yellow (Yellow); pH Urine 5 (5-7)
[2020-12-22 00:17] LABS: Bilirubin Urine Neg (Negative); Blood Urine Neg (Negative); Ketones Urine 1+ (Negative); Leukocyte Esterase Urine Negative (Negative); Nitrate Urine Negative (Negative); Urobilinogen Urine Norm (Negative)
[2020-12-22 00:46] LABS: Alanine Aminotransferase 15 U/L (0-33); Albumin Level 4.1 g/dL (3.5-5.2); Alkaline Phosphatase 82 IU/L (35-105); Aspartate Amino Transferase 12 U/L (0-32); Blood Urea Nitrogen 16 mg/dL (8-23); Calcium 9.3 mg/dL (8.5-10.5); Carbon Dioxide 25 mmol/L (22-29); Chloride 97 mmol/L (98-107); Glucose 295 mg/dL (65-115); Osmolality Calculated 290 mOsm/kg (285-295); Sodium 134 mmol/L (136-145); Total Bilirubin 0.4 mg/dL (0.15-1.2); Total Protein 7.1 g/dL (6.6-8.7)
[2020-12-22 00:51] VITALS: BP 121/90; PULSE 86; RESP 16; O2SAT 97
[2020-12-22] MEDS: sodium chloride 0.9% 500 ML 999 ML IV (01:21)
[2020-12-22 02:00] VITALS: BP 118/91; PULSE 89; RESP 17; TEMP 37.3; O2SAT 97
== END 2020-12-22 02:02 | disposition home or self-care (01) ==
PROVIDERS: Emergency Provider Emergency Medicine; PCP Family Medicine
DX: M54.9 Dorsalgia, unspecified (principal); E11.42 Type 2 diabetes mellitus with diabetic polyneuropathy; Z79.4 Long term (current) use of insulin; E78.5 Hyperlipidemia, unspecified; I10 Essential (primary) hypertension
CPT/HCPCS: 74176; 80053; 81003; 85025; 99283; J7040

== ENCOUNTER → 2020-12-29 11:12 | Outpatient (BNVA) | payer MEDICARE, MEDICAID, SELFPAY | PROVIDERS: PCP Family Medicine; Visit Provider Family Medicine | DX: N39.0 Urinary tract infection, site not specified (principal) | CPT/HCPCS: 81000 ==

== ENCOUNTER → 2021-04-07 09:34 | Outpatient (BNVA) | payer MEDICARE, MEDICAID, SELFPAY | PROVIDERS: PCP Family Medicine; Visit Provider Family Medicine | DX: G45.9 Transient cerebral ischemic attack, unspecified (principal); E03.9 Hypothyroidism, unspecified; E11.42 Type 2 diabetes mellitus with diabetic polyneuropathy; E78.5 Hyperlipidemia, unspecified; E53.8 Deficiency of other specified B group vitamins | CPT/HCPCS: 80053; 80061; 82607; 83036; 84443; 85025 ==

== ENCOUNTER 2021-04-09 17:07 | Inpatient (IN) | payer MEDICARE, MEDICAID, SELFPAY ==
[2021-04-09 17:32] VITALS: BP 187/106; PULSE 112; RESP 18; TEMP 36.5; O2SAT 96; BMI 30.4
--- NOTE | 2021-04-09 17:44 | XRR_ITS ---
PROCEDURE INFORMATION: Exam: XR Chest Exam date and time: 04/09/2021 5:44 PM Age: 75 years old Clinical indication: Shortness of breath; Additional info: Reduced breath sounds TECHNIQUE: Imaging protocol: XR of the chest. Views: 1 view. COMPARISON: CR XR chest 1V portable [id number] 12/19/2019 2:43 AM FINDINGS: Lungs: See Heart/Mediastinum finding. Pleural spaces: Unremarkable. No pleural effusion. No pneumothorax. Heart/Mediastinum: Mild cardiomegaly and pulmonary vascular congestion. Bones/joints: Unremarkable. XR/XR chest 1V portable [id number] IMPRESSION: Mild cardiomegaly and pulmonary vascular congestion.
--- NOTE | 2021-04-09 17:49 | ECG_ITS ---
[facility] Test Date: 2021-04-09 Pat Name: Monik Naidu Department: Room: Gender: Female Global Program Director: : 1945 Requested By: Cleve Goldberg Order Number: [id number] Jamie MD: Michael Becerra M.D. Measurements Intervals [place] Rate: 111 P: 42 FL: 169 QRS: 13 QRSD: 81 T: 35 QT: 315 QTc: 428 Interpretive Statements SINUS TACHYCARDIA LOW QRS VOLTAGE IN PRECORDIAL LEADS [QRS DEFLECTION < 1.0 mV IN CHEST LEADS] NONSPECIFIC ST & T-WAVE ABNORMALITY ABNORMAL RHYTHM ECG Compared to ECG 12/19/2019 02:36:29 Low QRS voltage now present T-wave abnormality now present Electronically Signed On 04-09-2021 22:09:07 CDT by Michael Becerra M.D. [id number] f
[2021-04-09 18:03] VITALS: BP 165/94; PULSE 98; RESP 20; O2SAT 95
[2021-04-09 19:04] LABS: Add Urine Microscopic? NO; Charge for UA Resulting for Rev
[2021-04-09 19:14] LABS: Bilirubin Urine Neg (Negative); Blood Urine Neg (Negative); Glucose Urine UA Trace (Normal); Ketones Urine Negative (Negative); Leukocyte Esterase Urine Negative (Negative); Nitrate Urine Negative (Negative); Protein Urine Neg (Negative); Specific Gravity, Urine 1.005 (1.005-1.030); Urine Appearance Clear (CLEAR); Urine Color Yellow (Yellow); Urobilinogen Urine Norm (Negative); pH Urine 7 (5-7)
[2021-04-09 19:32] LABS: Basophils # 0.1 10^3/uL (0.0-0.1); Eosinophils # 0.3 10^3/uL (0.0-0.8); Eosinophils % 3.5 %; Hematocrit 39.6 % (37.0-47.0); Lymphocytes # 2.1 10^3/uL (0.8-4.8); Lymphocytes % 26.2 %; Mean Corpuscular HGB Conc 32.8 g/dL (30.0-36.0); Mean Corpuscular Volume 100.5 fL (81-99); Mean Platelet Volume 12.1 fL (7.4-10.4); Monocytes # 0.5 10^3/uL (0.2-0.9); Monocytes % 5.6 %; Neutrophils # 5.06 10^3/uL (1.8-7.7); Neutrophils % 63.1 %; Nucleated Red Blood Cells % 0 %; Platelet Count 189 10^3/cmm (130-400); Red Blood Count 3.94 10^6/uL (4.1-5.3); Red Cell Distribution Width 13.1 % (12.1-15.1)
[2021-04-09 19:49] LABS: D Dimer 0.66 ug/mIFEU (0-0.59)
--- NOTE | 2021-04-09 19:49 | ECG_ITS ---
[facility] Test Date: 2021-04-09 Pat Name: Monik Naidu Department: Room: Gender: Female Charge Entry: : 1945 Requested By: Cleve Goldberg Order Number: [id number] Jamie MD: Michael Becerra M.D. Measurements Intervals [place] Rate: 98 P: 54 KS: 148 QRS: 30 QRSD: 85 T: 34 QT: 367 QTc: 470 Interpretive Statements SINUS RHYTHM Compared to ECG 12/19/2019 02:36:29 Sinus tachycardia no longer present Electronically Signed On 04-09-2021 21:35:35 CDT by Michael Becerra M.D. [id number]
[2021-04-09 19:53] LABS: Lactate (Lactic Acid level) 1.7 mmol/L (0.5-2.2)
[2021-04-09 19:55] LABS: Troponin(5th) Baseline 11 ng/L (0-10)
[2021-04-09 20:03] LABS: Alanine Aminotransferase 16 U/L (0-33); Albumin Level 4.1 g/dL (3.5-5.2); Alkaline Phosphatase 69 IU/L (35-105); Anion Gap 16.1 (5-19); Aspartate Amino Transferase 17 U/L (0-32); Blood Urea Nitrogen 15 mg/dL (8-23); Calcium 8.8 mg/dL (8.5-10.5); Carbon Dioxide 24 mmol/L (22-29); Chloride 104 mmol/L (98-107); Globulin 2.1 g/dL (1.3-4.6); Glucose 170 mg/dL (65-115); NT Pro B Type Natriuretic Pept 44 pg/mL (0-450); Osmolality Calculated 295 mOsm/kg (285-295); Potassium 4.1 mmol/L (3.5-5.1); Sodium 140 mmol/L (136-145); Thyroid Stimulating Hormone 1.89 uIU/mL (0.27-4.20); Total Bilirubin 0.2 mg/dL (0.15-1.2); Total Protein 6.2 g/dL (6.6-8.7)
--- NOTE | 2021-04-09 20:28 | CTR_ITS ---
PROCEDURE INFORMATION: Exam: CT Head Without Contrast Exam date and time: 04/09/2021 8:28 PM Age: 75 years old Clinical indication: Dizziness; Additional info: PT states feels like someone is stabbing me in the ear with a knife x 3 weeks on and off. Dizziness, unbalanced, pain on the left side of head TECHNIQUE: Imaging protocol: Computed tomography of the head without contrast. Radiation optimization: All CT scans at this facility use at least one of these dose optimization techniques: automated exposure control; mA and/or kV adjustment per patient size (includes targeted exams where dose is matched to clinical indication); or iterative reconstruction. COMPARISON: CT neck wo con [id number] 04/04/2016 8:23 AM RADIATION DOSE METRICS: Total DLP (mGy-cm): 929.98 FINDINGS: Brain: Mild cortical volume loss. Mild hypodensities in supratentorial periventricular and subcortical white matter, consistent with microangiopathy. No intracranial hemorrhage. Cerebral ventricles: No ventriculomegaly. Paranasal sinuses: Mild mucosal thickening in the ethmoid air cells. No air-fluid levels. Mastoid air cells: Visualized mastoid air cells are well aerated. Vasculature: No hyperdense artery. Bones/joints: Unremarkable. No acute fracture. Soft tissues: Unremarkable. CT/CT head wo con* [id number] IMPRESSION: 1. No acute intracranial abnormality. Radiation Dose CTDIVOL = (mGy): DLP = 929.98 (mGy-cm)
[2021-04-09 21:13] LABS: Troponin 5 2HR 11.01 ng/L (0-10); Troponin 5 2HR Delta 0.01 ABS# (0-10)
--- NOTE | 2021-04-09 21:22 | NMR_ITS ---
PROCEDURE INFORMATION: Exam: NE Lung Perfusion Exam date and time: 04/09/2021 9:22 PM Age: 75 years old Clinical indication: Abnormal findings; Abnormal diagnostic tests; Elevated d-dimer; Other: Dizziness; Additional info: Dyspnea/cp TECHNIQUE: Imaging protocol: Nuclear pulmonary perfusion imaging was performed. Views: Perfusion acquired with multiple projections. Radiopharmaceutical: 5.4 mCi Tc-99m MAA (Macroaggregated Albumin), IV. COMPARISON: CR (CHEST, ) 04/09/2021 6:03 PM FINDINGS: Perfusion: No perfusion defect. NE/NE pul perfusion [id number] IMPRESSION: Normal lung perfusion exam.
[2021-04-09 21:24] VITALS: BP 154/80; PULSE 91; RESP 17; O2SAT 96
--- NOTE | 2021-04-09 22:30 | CTR_ITS ---
PROCEDURE INFORMATION: Exam: CT Abdomen And Pelvis Without Contrast Exam date and time: 04/09/2021 10:30 PM Age: 75 years old Clinical indication: Abdominal pain; Flank; Right; Prior surgery; Surgery type: Hyst, appy; Additional info: Right flank pain TECHNIQUE: Imaging protocol: Computed tomography of the abdomen and pelvis without contrast. Radiation optimization: All CT scans at this facility use at least one of these dose optimization techniques: automated exposure control; mA and/or kV adjustment per patient size (includes targeted exams where dose is matched to clinical indication); or iterative reconstruction. COMPARISON: CT abdomen pelvis con [id number] 12/22/2020 12:27 AM RADIATION DOSE METRICS: Total DLP (mGy-cm): 1223.58 FINDINGS: Liver: Normal. No mass. Gallbladder and bile ducts: Cholecystectomy. Pancreas: Normal. No ductal dilation. Spleen: Normal. No splenomegaly. Adrenal glands: Normal. No mass. Kidneys and ureters: Left kidney renal cysts, some of which are parapelvic in nature. Stomach and bowel: Diverticulosis without diverticulitis. Constipation. Appendix: No evidence of appendicitis. Intraperitoneal space: Unremarkable. No free air. No significant fluid collection. Vasculature: Unremarkable. No abdominal aortic aneurysm. Lymph nodes: Unremarkable. No enlarged lymph nodes. Urinary bladder: Unremarkable as visualized. Reproductive: Unremarkable as visualized. Bones/joints: Severe right hip osteoarthritis with a subchondral degenerative cysts. Soft tissues: Unremarkable. CT/CT abdomen pelvis con [id number] IMPRESSION: 1. Negative for acute inflammatory process in the abdomen or pelvis. 2. Cholecystectomy. 3. Left kidney renal cysts, some of which are parapelvic in nature. 4. Diverticulosis without diverticulitis. 5. Constipation. 6. Severe right hip osteoarthritis with a subchondral degenerative cysts. COMMENTS: Consistent with the [employer]'s Incidental Findings Committee white paper (J Am Silvano Radiol 2018): Any incidental renal lesion less than 1 cm or classified as too small to characterize, or any incidental cystic renal lesion characterized as simple-appearing, is likely benign. No follow-up imaging is recommended for these lesions per consensus recommendations based on imaging criteria. Radiation Dose CTDIVOL = (mGy): DLP = 1223.58 (mGy-cm)
--- NOTE | 2021-04-09 22:32 | W.ED.DIZZY ---
HPI - Dizziness General: Chief Complaint: Dizziness Stated Complaint: HEADACHE/ VERTIGO Time Seen by Provider: 04/09/21 17:29 History of Present Illness: HPI Narrative: The patient is a 75-year-old female with past medical history of myasthenia gravis in remission for 5 years comes to the ER complaining of feeling like she is going to pass out when she stands up for the past week. She says she has fallen multiple times at home and has a slight dizziness with it as well. She says she feels unsteady on her feet and slightly shaky as well. She also complains separately that her legs are slightly swollen bilaterally and that her right kidney is giving her pain. She has a history of kidney stones. On arrival to the ER EMS gave her a liter of fluids her heart rate was 120 when they picked her up at home and she was very hypertensive. Heart rate after 750 cc was 110. Patient also felt she had a TIA in her sleep and cannot describe the symptoms any further. She also complains of chest pains during the daytime but she is not having pain in the ER today. The most concerning symptom to her is the lightheadedness when standing up as she is having multiple falls at home. She has an appointment with Dr. Khan again in June but is concerned that is too far away. MD elicited complaint: near syncope Timing: gradual onset Severity: moderate Description: near-syncope Exacerbating factors: movement/ambulation and change in body position Relieving factors: nothing Associated symptoms: Reports no associated symptoms and headache(s); Denies chest pain, nasal congestion or palpitations Associated neuro symptoms: Reports no associated symptoms; Deny confusion or numbness in extremities Review of Systems General: Reports: 10 or more systems reviewed and unremarkable except in HPI and below Const: Denies: fatigue Eyes: Denies: change in vision, blurry vision or eye redness ENMT: Denies: throat pain, swelling of lips/tongue, ear or mastoid pain or nasal congestion Card: Denies: chest pain, palpitations, irregular heart rhythm, edema, dyspnea on exertion or orthopnea Resp: Denies: dyspnea, productive cough or non-productive cough GI: Denies: abdominal pain, diarrhea or GI cramping : Denies: flank pain, difficulty voiding, urinary frequency or urinary urgency Musc: Denies: neck pain, back pain, extremity pain, joint pain, joint redness, limited range of motion or muscle weakness Skin/Breast: Denies: rash, pruritus, erythema, skin pain or skin tenderness Neuro: Reports: headache(s) and frequent falls; Denies: numbness in extremities, weakness in extremities, sensory changes, difficulty walking, dizziness, confusion or Slurred speech present Psych: Denies: anxiety or depression Endo: Denies: polyuria All/Imm: Denies: urticaria, throat swelling or tongue swelling PFSH ED PFSH: Medical History Acquired hypothyroidism Anxiety Arteriosclerotic vascular disease B12 deficiency Colon polyp Dyslipidemia she feels she is intolerant to all statins Encounter for counseling for care management of patient with chronic conditions and complex health needs using nurse-based model Enrolled in chronic care management Esophageal thickening Essential (primary) hypertension Essential tremor Excessive daytime sleepiness Lung nodule LLL 4-5 mm, new nodule in right upper lobe Myasthenia gravis Neuropathy Osteoarthritis of sacroiliac joint Osteoporosis Positive skin test for tuberculosis Type 2 diabetes mellitus Vitamin D deficiency Surgical History History of bunionectomy Hx of appendectomy Hx of arthroscopy of right knee Hx of cholecystectomy Hx of hysterectomy, total (~1974) Hx of oral surgery Hx of tonsillectomy Family History Father , age 67 Stroke Cancer lung Mother Cancer melanoma, pancreatic CAD (coronary artery disease) multiple stents Social History Smoking and tobacco status: never smoked Alcohol intake: never Lives independently: Yes Household members: none Housing: Apartment Current occupational status: retired History of recent travel: No Current gender identity: Female Kalie/[employer]: [employer] Female Reproductive History: Para: 2 Physical Exam Const: COMMON NORMALS: no acute distress, average body habitus, patient oriented x3, no limitations, healthy appearing, alert and well nourished GENERAL APPEARANCE: cooperative, comfortable, well kempt and well developed ORIENTATION/CONSCIOUSNESS: Yes awake, Yes oriented to person, Yes oriented to place and Yes oriented to time HENMT: COMMON NORMALS: normocephalic, external ears normal and Normal external nose present HEAD & SCALP: normal to inspection and normocephalic NOSE: Normal external nose present EXTERNAL EAR: Yes external ears normal MOUTH: Normal oral and palatal mucosa present THROAT: posterior oropharynx normal Eye: COMMON NORMALS: Equal, round and reactive pupils present and EOMs intact bilaterally GENERAL EYE: appearance normal, both eyes and all related structures PUPIL: Yes Equal, round and reactive pupils present Neck/C-Spine: COMMON NORMALS: full ROM, no lymphadenopathy, no meningeal signs and no JVD GENERAL: Yes normal visual inspection Lymph: LYMPHATIC: no lymphadenopathy noted Chest: COMMONS NORMALS: normal inspection of the chest and normal palpation of entire chest wall Resp: COMMON NORMALS: normal respiratory effort, No retractions, No use of accessory muscles, clear to auscultation bilaterally and percussion normal EFFORT & INSPECTION: Yes able to speak in complete sentences AUSCULTATION: clear to auscultation bilaterally PERCUSSION: percussion normal Cardio: COMMON NORMALS: no JVD, regular rate, regular rhythm, S1 normal heart sound present, S2 normal heart sound present and Peripheral pulses 2+ throughout RATE: regular rate RHYTHM: regular rhythm HEART SOUNDS: S1 normal heart sound present and S2 normal heart sound present PERIPHERAL PULSES: Peripheral pulses 2+ throughout GI: COMMON NORMALS: Normal to inspection, nondistended, normoactive bowel sounds present, Soft to palpation, non-tender and no masses INSPECTION: Yes normal to inspection PALPATION: Yes Soft to palpation : COMMON NORMALS: Yes no CVA tenderness BLADDER/KIDNEY EXAM: Yes no CVA tenderness Back/Pelvis: COMMON NORMALS: no CVA tenderness, thoracic and lumbar spine normal to inspection, no thoracic nor lumbar tenderness and thoraco-lumbar ROM normal Extremity: COMMON NORMALS: normal to inspection, full ROM, capillary refill normal, no joint enlargement and no pedal edema GENERAL: Yes normal exam except as noted Neuro: COMMON NORMALS: patient oriented x3, CN's II-XII intact bilaterally, moves all extremities, no focal motor deficits, no sensory deficits noted and gait normal SENSORIUM/ORIENTATION: Yes alert, Yes oriented to person, Yes oriented to place and Yes oriented to time MENINGEAL SIGNS: Yes no meningeal signs Psych: COMMON NORMALS: mental status grossly normal, Normal thought process present, cooperative, normal affect and speech normal APPEARANCE: Yes well kempt ATTITUDE: Yes calm SPEECH: Yes normal speech THOUGHT PROCESS: Normal thought process present Skin: COMMON NORMALS: no rashes or lesions noted NARRATIVE SKIN EXAM: Mild ecchymosis to left lateral thigh aged approximately a week. Healing well. from previous fall. GENERAL SKIN EXAM: no rashes or lesions noted Course Vital Signs: Vital signs: Vital Signs Temperature 97.7 F 04/09/21 17:32 Pulse Rate 91 04/09/21 21:24 Respiratory Rate 17 04/09/21 21:24 Blood Pressure 154/80 04/09/21 21:24 Pulse Oximetry 96 04/09/21 21:24 MDM - Dizziness MDM Narrative: Medical decision making narrative: The patient comes to the ER complaining of lightheadedness and feeling like she is going to pass out when she stands up for a week. She has history of myasthenia gravis and has been in remission for 5 years. She also complains of a number of other symptoms which the work-up has been negative for. PE perfusion scan negative. She has been a week with the symptoms and lives at home alone. Discussed with Dr. Hernandez Who accepts for observation overnight. Lab Data: Labs: Lab Results 04/09/21 04/09/21 04/09/21 Range/Units 18:44 19:25 19:25 WBC 8.0 (4.0-10.0) 10^3/ uL RBC 3.94 L (4.1-5.3) 10^6/u L Hgb 13.0 (11.5-15.3) g/dL Hct 39.6 (37.0-47.0) % MCV 100.5 H (81-99) fL MCH 33.0 (28.0-34.0) pg MCHC 32.8 (30.0-36.0) g/dL RDW 13.1 (12.1-15.1) % Plt Count 189 (130-400) 10^3/c mm MPV 12.1 H (7.4-10.4) fL Neut % (Auto) 63.1 % Lymph % (Auto) 26.2 % Po[place]ett % (Auto) 5.6 % Eos % (Auto) 3.5 % Baso % (Auto) 1.0 % Neut # (Auto) 5.06 (1.8-7.7) 10^3/u L Lymph # (Auto) 2.1 (0.8-4.8) 10^3/u L [place] # (Auto) 0.5 (0.2-0.9) 10^3/u L Eos # (Auto) 0.3 (0.0-0.8) 10^3/u L Baso # (Auto) 0.1 (0.0-0.1) 10^3/u L Nucleated RBC % (a uto) 0 % Nucleated RBCs # 0.0 /100WBC D-Dimer 0.66 H (0-0.59) ug/mIFE U Sodium (136-145) mmol/L Potassium (3.5-5.1) mmol/L Chloride (98-107) mmol/L Carbon Dioxide (22-29) mmol/L Anion Gap (5-19) BUN (8-23) mg/dL Creatinine (0.5-0.9) mg/dL GFR Calculation Glucose (65-115) mg/dL Calculated Osmolal ity (285-295) mOsm/k g Lactate (0.5-2.2) mmol/L Calcium (8.5-10.5) mg/dL Total Bilirubin (0.15-1.2) mg/dL AST (0-32) U/L ALT (0-33) U/L Alkaline Phosphata se (35-105) IU/L Troponin T Baselin e (0-10) ng/L Troponin T 120 Min bois forte (0-10) ng/L Delta Troponin T (0-10) ABS# NT-Pro-B Natriuret Pep (0-450) pg/mL Total Protein (6.6-8.7) g/dL Albumin (3.5-5.2) g/dL Globulin (1.3-4.6) g/dL TSH (0.27-4.20) uIU/ mL Urine Color Yellow (Yellow) Urine Appearance Clear (CLEAR) Urine pH 7 (5-7) Ur Specific Gravit y 1.005 (1.005-1.030) Urine Protein Neg (Negative) Urine Glucose (UA) Trace H (Normal) Urine Ketones Negative (Negative) Urine Blood Neg (Negative) Urine Nitrate Negative (Negative) Urine Bilirubin Neg (Negative) Urine Urobilinogen Norm (Negative) mg/dL Ur Leukocyte Anum ase Negative (Negative) 04/09/21 04/09/21 04/09/21 Range/Units 19:25 19:25 19:25 WBC (4.0-10.0) 10^3/ uL RBC (4.1-5.3) 10^6/u L Hgb (11.5-15.3) g/dL Hct (37.0-47.0) % MCV (81-99) fL MCH (28.0-34.0) pg MCHC (30.0-36.0) g/dL RDW (12.1-15.1) % Plt Count (130-400) 10^3/c mm MPV (7.4-10.4) fL Neut % (Auto) % Lymph % (Auto) % Po[place] % (Auto) % Eos % (Auto) % Baso % (Auto) % Neut # (Auto) (1.8-7.7) 10^3/u L Lymph # (Auto) (0.8-4.8) 10^3/u L [place] # (Auto) (0.2-0.9) 10^3/u L Eos # (Auto) (0.0-0.8) 10^3/u L Baso # (Auto) (0.0-0.1) 10^3/u L Nucleated RBC % (a uto) % Nucleated RBCs # /100WBC D-Dimer (0-0.59) ug/mIFE U Sodium 140 (136-145) mmol/L Potassium 4.1 (3.5-5.1) mmol/L Chloride 104 (98-107) mmol/L Carbon Dioxide 24 (22-29) mmol/L Anion Gap 16.1 (5-19) BUN 15 (8-23) mg/dL Creatinine 0.8 (0.5-0.9) mg/dL GFR Calculation Not Reportable Glucose 170 H (65-115) mg/dL Calculated Osmolal ity 295 (285-295) mOsm/k g Lactate 1.7 (0.5-2.2) mmol/L Calcium 8.8 (8.5-10.5) mg/dL Total Bilirubin 0.2 (0.15-1.2) mg/dL AST 17 (0-32) U/L ALT 16 (0-33) U/L Alkaline Phosphata se 69 (35-105) IU/L Troponin T Baselin e 11 H (0-10) ng/L Troponin T 120 Min bois forte (0-10) ng/L Delta Troponin T (0-10) ABS# NT-Pro-B Natriuret Pep 44 (0-450) pg/mL Total Protein 6.2 L (6.6-8.7) g/dL Albumin 4.1 (3.5-5.2) g/dL Globulin 2.1 (1.3-4.6) g/dL TSH 1.89 (0.27-4.20) uIU/ mL Urine Color (Yellow) Urine Appearance (CLEAR) Urine pH (5-7) Ur Specific Gravit y (1.005-1.030) Urine Protein (Negative) Urine Glucose (UA) (Normal) Urine Ketones (Negative) Urine Blood (Negative) Urine Nitrate (Negative) Urine Bilirubin (Negative) Urine Urobilinogen (Negative) mg/dL Ur Leukocyte Anum ase (Negative) 04/09/21 Range/Units 20:48 WBC (4.0-10.0) 10^3/ uL RBC (4.1-5.3) 10^6/u L Hgb (11.5-15.3) g/dL Hct (37.0-47.0) % MCV (81-99) fL MCH (28.0-34.0) pg MCHC (30.0-36.0) g/dL RDW (12.1-15.1) % Plt Count (130-400) 10^3/c mm MPV (7.4-10.4) fL Neut % (Auto) % Lymph % (Auto) % Po[place] % (Auto) % Eos % (Auto) % Baso % (Auto) % Neut # (Auto) (1.8-7.7) 10^3/u L Lymph # (Auto) (0.8-4.8) 10^3/u L [place] # (Auto) (0.2-0.9) 10^3/u L Eos # (Auto) (0.0-0.8) 10^3/u L Baso # (Auto) (0.0-0.1) 10^3/u L Nucleated RBC % (a uto) % Nucleated RBCs # /100WBC D-Dimer (0-0.59) ug/mIFE U Sodium (136-145) mmol/L Potassium (3.5-5.1) mmol/L Chloride (98-107) mmol/L Carbon Dioxide (22-29) mmol/L Anion Gap (5-19) BUN (8-23) mg/dL Creatinine (0.5-0.9) mg/dL GFR Calculation Glucose (65-115) mg/dL Calculated Osmolal ity (285-295) mOsm/k g Lactate (0.5-2.2) mmol/L Calcium (8.5-10.5) mg/dL Total Bilirubin (0.15-1.2) mg/dL AST (0-32) U/L ALT (0-33) U/L Alkaline Phosphata se (35-105) IU/L Troponin T Baselin e (0-10) ng/L Troponin T 120 Min bois forte 11.01 H (0-10) ng/L Delta Troponin T 0.01 (0-10) ABS# NT-Pro-B Natriuret Pep (0-450) pg/mL Total Protein (6.6-8.7) g/dL Albumin (3.5-5.2) g/dL Globulin (1.3-4.6) g/dL TSH (0.27-4.20) uIU/ mL Urine Color (Yellow) Urine Appearance (CLEAR) Urine pH (5-7) Ur Specific Gravit y (1.005-1.030) Urine Protein (Negative) Urine Glucose (UA) (Normal) Urine Ketones (Negative) Urine Blood (Negative) Urine Nitrate (Negative) Urine Bilirubin (Negative) Urine Urobilinogen (Negative) mg/dL Ur Leukocyte Anum ase (Negative) Discharge Plan Discharge Patient Disposition: Placed in Observation Clinical Impression: Near syncope Condition: Stable Prescriptions: No Action mometasone [Nasonex] 50 mcg/actuation spray,non-aerosol 2 spray INTRANASAL DAILY PRN (Reason: allergy symptoms) Qty: 17 RF: 12 lisinopril 5 mg tablet 5 mg PO DAILY RF: 0 nitroglycerin [Nitrostat] 0.4 mg tablet, sublingual 0.4 mg SUBLINGUAL Q5M PRN (Reason: Chest Pain) RF: 0 levothyroxine [Synthroid] 100 mcg tablet See Rx Instructions .ROUTE .COMPLEX Qty: 90 RF: 5 albuterol sulfate [ProAir HFA] 90 mcg/actuation HFA aerosol inhaler 2 puff INHALATION Q6H PRN (Reason: Shortness Of Breath) Qty: 8.5 RF: 3 cyanocobalamin (vitamin B-12) 1,000 mcg/mL solution See Rx Instructions .ROUTE .COMPLEX Qty: 3 RF: 2 pen needle, diabetic [UltiCare Pen Needle] 32 gauge x 5/32 needle See Rx Instructions .ROUTE .COMPLEX Qty: 100 RF: 2 glipizide 5 mg tablet 5 mg PO DAILY Qty: 30 RF: 3 Levemir FlexTouch U-100 Insuln 100 unit/mL (3 mL) insulin pen See Rx Instructions .ROUTE .COMPLEX Qty: 15 RF: 2 True Metrix Glucose Test Strip Strip See Rx Instructions .ROUTE .COMPLEX Qty: 150 RF: 4 Referrals: Lynette Smalls MD [Primary Care Provider] - Coding Level of Care Code ED Gut Cleaner for Chg Fwd Exam Comprehensive
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
[2021-04-09] MEDS: acetaminophen 325 mg Tablet 650 MG PO (23:46)
--- NOTE | 2021-04-09 23:49 | ECG_ITS ---
[facility] Test Date: 2021-04-10 Pat Name: Monik Naidu Department: Room: 276 Gender: Female Child Welfare Director: : 1945 Requested By: Cleve Goldberg Order Number: [id number] Reading MD: WILMER MARTELL Measurements Intervals [place] Rate: 77 P: 52 [place]: 156 QRS: 35 QRSD: 88 T: 32 QT: 403 QTc: 457 Interpretive Statements SINUS RHYTHM Compared to ECG 04/09/2021 20:50:13 No significant changes Electronically Signed On 04-10-2021 17:05:47 CDT by WILMER MARTELL [id number]
[2021-04-09 23:55] LABS: Glucose Point of Care 195 mg/dL (70-110)
[2021-04-10] VITALS (14 sets, daily range): BP systolic 112–177; BP diastolic 64–95; PULSE 65–104; RESP 16–18; TEMP 36.6–37.1; O2SAT 93–98
--- NOTE | 2021-04-10 | USCV_ITS ---
Evangelista Bastian Age: 75 Gender: F : 1945 Exam Date: 04/10/2021 11:33 Ordering Phys: Mal Do MD Technologist: Florence Berry Exam Location: [facility] [place] Indication: TIA, presyncope BP: 153 / 84 HR: Rhythm: Sinus Technical Quality: Fair MEASUREMENTS (Male / Female) Normal Values 2D ECHO LV Diastolic Diameter PLAX 2.8 cm 4.2 - 5.9 / 3.9 - 5.3 cm LV Systolic Diameter PLAX 1.6 cm LV Chamber Size 3.1 cm IVS Diastolic Thickness 2.6 cm 0.6 - 1.0 / 0.6 - 0.9 cm IVS Systolic Thickness 2.3 cm LVPW Diastolic Thickness 1.1 cm 0.6 - 1.0 / 0.6 - 0.9 cm LVPW Systolic Thickness 1.2 cm RV Chamber Size 2.2 cm LVOT Diameter 2.0 cm LV Ejection Fraction 2D Teich 74.2 % LV Ejection Fraction MOD 2C 67.7 % LV Ejection Fraction 2C AL 71.6 % LA Diameter 3.2 cm LA Width 2.4 cm LA Height 6.1 cm RA Width 2.4 cm RA Height 3.4 cm Aorta at Sinotubular Diameter 1.9 cm M-MODE LV Diastolic Diameter MM 5.0 cm 4.2 - 5.9 / 3.9 - 5.3 cm LV Systolic Diameter MM 3.1 cm LV Ejection Fraction MM Teich 69.5 % IVS Diastolic Thickness MM 1.3 cm 0.6 - 1.0 / 0.6 - 0.9 cm IVS Systolic Thickness MM 1.8 cm LVPW Diastolic Thickness MM 1.1 cm 0.6 - 1.0 / 0.6 - 0.9 cm LVPW Systolic Thickness MM 2.0 cm Aortic Annulus Diameter 3.5 cm LA Ao Ratio MM 1.1 MV E Point Septal Separation 0.5 cm DOPPLER AV Peak Velocity 123.0 cm/s LVOT Peak Velocity 99.0 cm/s AV Area Cont Eq vti 2.4 cm squared AV Area Cont Eq pk 2.5 cm squared MV Area PHT 3.6 cm squared Mitral E to A Ratio 1.2 MV E' Velocity 53.0 cm/s Mitral E to MV E' Ratio 14.4 Mitral E to LV E' Lateral Ratio 13.4 Mitral E to LV E' Septal Ratio 15.8 TV Peak E Velocity 61.0 cm/s Right Atrial Pressure 3.0 mmHg PV Peak Velocity 73.0 cm/s RV Acceleration Time 0.1 s RV Ejection Time 0.3 s RV AcT/ET 0.4 FINDINGS Left Ventricle Normal left ventricular cavity size. Normal left ventricular systolic function. No regional wall motion abnormalities. Left ventricular ejection fraction is estimated at 65 %. Grade II/IV diastolic dysfunction, moderately elevated filling pressures. Right Ventricle The right ventricle is normal in size and function. RVSP could not be calculated due to incomplete tricuspid regurgitation velocity profile. Right Atrium The right atrium is normal in size. Left Atrium The left atrium is normal in size. Mitral Valve Structurally normal mitral valve without significant stenosis or prolapse. There is no mitral regurgitation. Aortic Valve Structurally normal aortic valve without significant sclerosis or stenosis. There is no aortic regurgitation. Tricuspid Valve Structurally normal tricuspid valve without significant stenosis or regurgitation. Pulmonic Valve Structurally normal pulmonic valve without significant stenosis. There is no pulmonic regurgitation. Pericardium Normal pericardium without effusion. Aorta Normal ascending aorta dimension. CONCLUSIONS 1-Normal left ventricular cavity size. Normal left ventricular systolic function. No regional wall motion abnormalities. Left ventricular ejection fraction is estimated at 65 %. Grade II/IV diastolic dysfunction, moderately elevated filling pressures. 2-No significant valve abnormalities. 3-There is no pericardial effusion. 4-The right ventricle is normal in size and function. RVSP could not be calculated due to incomplete tricuspid regurgitation velocity profile. 5-Right atrial pressure is around 5 mm of mercury. 6-No significant change since the prior echocardiogram study of 27/10/2020. Braeden Dia MD (Electronically Signed) Final Date: 10 April 2021 13:52 S
--- NOTE | 2021-04-10 | USR_ITS ---
PROCEDURE INFORMATION: Exam: US Duplex Bilateral Extracranial Arteries Exam date and time: 04/10/2021 9:42 AM Age: 75 years old Clinical indication: Other: TIA, presyncope; Additional info: SOB TECHNIQUE: Imaging protocol: Real-time Duplex ultrasound scan of the bilateral carotid and vertebral arteries combining costello scale, color Doppler and spectral waveform analysis. Bilateral exam. COMPARISON: CT head wo con* [id number] 04/09/2021 9:24 PM FINDINGS: Right common carotid artery: Peak systolic velocity right CCA 85 cm/s. Right internal carotid artery: Peak systolic velocity right ICA 90 cm/s. Right ICA/CCA ratio: Right ICA/CCA ratio 1.2. Right external carotid artery: No stenosis in the origin. Right vertebral artery: Normal antegrade flow in vertebral arteries bilaterally. Normal antegrade flow in vertebral arteries bilaterally. Left common carotid artery: Peak systolic velocity distal left CCA 79 cm/s. Left internal carotid artery: Peak systolic velocity left ICA 96 cm/s. Mild bilateral ICA stenosis. Left ICA/CCA ratio: Left ICA/CCA ratio 1.4. Left external carotid artery: No stenosis in the origin. Left vertebral artery: Unremarkable. Antegrade flow. Other findings: Mild bilateral carotid plaque. US/CV carotid duplex BI* [id number] IMPRESSION: 1. Normal antegrade flow in vertebral arteries bilaterally. 2. Mild bilateral ICA stenosis. REFERENCES: SRU CRITERIA. The degree of internal carotid artery stenosis is based on criteria defined by the Society of Radiologists in Ultrasound (SRU). Normal is no stenosis. Mild is less than 50% stenosis. Moderate is 50-69% stenosis. Severe is greater than 69% stenosis to near occlusion. Near occlusion is a markedly narrowed lumen. Total occlusion is no detectable patent lumen.
[2021-04-10 02:05] LABS: Vitamin B12 390 pg/mL (232-1245)
[2021-04-10 02:42] LABS: Troponin 5 6HR 10.44 ng/L (0-10)
[2021-04-10 02:43] LABS: Troponin 5 6HR Delta -0.56 ng/L (0-12)
[2021-04-10 03:00] LABS: Glucose Point of Care 209 mg/dL (70-110)
[2021-04-10] MEDS: enoxaparin 40 mg/0.4 mL Syringe SUBCUT (03:03)
[2021-04-10 06:30] LABS: Glucose Point of Care 213 mg/dL (70-110)
[2021-04-10] MEDS: lisinopril 5 mg Tablet PO (08:03)
[2021-04-10] MEDS: aspirin 81 mg EC Tablet PO (08:03)
[2021-04-10] MEDS: clopidogrel 75 mg Tablet PO (08:03)
[2021-04-10] MEDS: levothyroxine 100 mcg Tablet PO (08:03)
[2021-04-10] MEDS: acetaminophen 500 mg Tablet PO (08:03)
[2021-04-10 08:37] LABS: Anion Gap 16.3 (5-19); Blood Urea Nitrogen 14 mg/dL (8-23); Carbon Dioxide 25 mmol/L (22-29); Chloride 100 mmol/L (98-107); Glucose 195 mg/dL (65-115); Osmolality Calculated 290 mOsm/kg (285-295); Potassium 4.3 mmol/L (3.5-5.1); Sodium 137 mmol/L (136-145)
[2021-04-10 11:12] LABS: Glucose Point of Care 175 mg/dL (70-110)
--- NOTE | 2021-04-10 13:33 | PM.PN ---
Subjective Subjective: Interval history: Patient was seen this morning, she continues to complain of dizziness, typically when changing positions, no nausea, no vomiting, no diarrhea, no fevers, no chills, no known exposure to COVID-19, she does tell me that her brother from COVID-19 at [facility] in November, no history of CVA, no history of CAD, no history of A. fib, no chest pain, does have palpitations. She does complain of some dysphagia, she does tell me that her left side of her face is twitching, she is always had diplopia, she tells me that she is never really had a myasthenia gravis this, but whenever this happens, typically Solu-Medrol will help, she is wondering if she can have some Solu-Medrol Vitals/I&O/Wt Last Vital Signs Temp 97.9 F 04/10/21 10:00 Pulse 86 04/10/21 10:00 Resp 16 04/10/21 10:00 BP 153/84 04/10/21 10:00 Pulse Ox 93 04/10/21 10:00 04/09/21 04/10/21 04/10/21 22:59 06:59 14:59 Intake Total 240 / 240 Output Total 1000 / 1000 Balance -1000 / -1000 240 / 240 Weight last 48 hrs Weight 87.997 kg Physical Exam Const: COMMON NORMALS: no acute distress and patient oriented x3 Resp: COMMON NORMALS: normal respiratory effort, No retractions, No use of accessory muscles and clear to auscultation bilaterally AUSCULTATION: clear to auscultation bilaterally Cardio: COMMON NORMALS: regular rate, regular rhythm, S1 normal heart sound present and S2 normal heart sound present RATE: regular rate RHYTHM: regular rhythm HEART SOUNDS: S1 normal heart sound present and S2 normal heart sound present GI: COMMON NORMALS: Normal to inspection, nondistended, normoactive bowel sounds present, Soft to palpation and non-tender PALPATION: Yes Soft to palpation Extremity: COMMON NORMALS: no pedal edema Neuro: COMMON NORMALS: patient oriented x3 Psych: COMMON NORMALS: mental status grossly normal Data : 04/09/21 19:25 04/10/21 01:56 A&P Assessment and plan (1) Near syncope: Status: Acute (2) B12 deficiency: Status: Acute (3) TIA (transient ischemic attack): Status: Acute (4) Dyslipidemia: Status: Acute (5) Osteoarthritis of right hip: Status: Acute (6) Tinnitus: Status: Acute Additional A&P Information Dizziness Presyncope with negative orthostatics, EKG normal, high D-dimer, VQ scan negative Hypertensive urgency improved in the ER Low normal B12, patient is stating that for last 6 to 8 months she has not been able to take B12 injections because of COVID-19 her injections were not supplied and she avoided going to the PCP office Continue B12 supplementation No active proximal muscle weakness, diplopia, slurring speech or ptosis, highly doubt myasthenia crisis, but will give Solu-Medrol 125 mg Hemoglobin A1c 7.6 Insulin-dependent type 2 diabetes mellitus, decrease Levemir dose to 30 units at bedtime, continue sliding scale monitor blood sugars carefully as she received Solu-Medrol TSH normal CT head unremarkable Carotid Doppler, cardiac echo, continue telemetry monitoring she does express symptoms of TIA start Plavix along with aspirin, she has dyslipidemia and statins would be relatively contraindicated because of her myasthenia gravis, might benefit from ezetimibe or fenofibrate She does have right hip osteoarthritis 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 no recent ear discharge, fever, recent sinus infection, would not add any antibiotics, I would keep BPPV or M?ni?re's in the differential as well because she is endorsing symptoms of dizziness, tinnitus and weight gain, would recommend outpatient follow-up with ENT, She had a fall 2 weeks ago, has a hematoma in the left thigh Full code Physical therapy evaluation, patient is stating that she would not like to go to longterm if qualifies Cardiac/consistent carb Attestations Medical Necessity Statement*: Patient requires hospitalization for dizziness, Coding Level of Care Code Acute [employer] for Chg Fwd Diagnoses Near syncope R55 B12 deficiency E53.8 TIA (transient ischemic attack) G45.9 Dyslipidemia E78.5 Osteoarthritis of right hip M16.11 Tinnitus H93.19
[2021-04-10] MEDS: sodium chloride 0.9% 1,000 ML 50 ML IV (15:21)
[2021-04-10 17:01] LABS: Glucose Point of Care 273 mg/dL (70-110)
[2021-04-10 21:12] LABS: Glucose Point of Care 294 mg/dL (70-110)
[2021-04-11] MEDS: enoxaparin 40 mg/0.4 mL Syringe SUBCUT (03:40)
[2021-04-11 03:51] VITALS: BP 107/63; PULSE 72; RESP 16; TEMP 36.7; O2SAT 97
[2021-04-11] MEDS: sodium chloride 0.9% 1,000 ML 50 ML IV (05:04)
[2021-04-11 06:00] VITALS: PULSE 94
[2021-04-11 06:34] LABS: Glucose Point of Care 197 mg/dL (70-110)
[2021-04-11 07:13] LABS: Basophils % 0.2 %; Hemoglobin 12.9 g/dL (11.5-15.3); Lymphocytes # 1.3 10^3/uL (0.8-4.8); Lymphocytes % 12.6 %; Mean Corpuscular HGB Conc 33.1 g/dL (30.0-36.0); Mean Corpuscular Hemoglobin 32.3 pg (28.0-34.0); Mean Corpuscular Volume 97.7 fL (81-99); Mean Platelet Volume 12.9 fL (7.4-10.4); Monocytes # 0.5 10^3/uL (0.2-0.9); Monocytes % 4.9 %; Neutrophils # 8.23 10^3/uL (1.8-7.7); Neutrophils % 81.8 %; Nucleated Red Blood Cells % 0 %; Platelet Count 130 10^3/cmm (130-400); Red Blood Count 3.99 10^6/uL (4.1-5.3); Red Cell Distribution Width 12.9 % (12.1-15.1); White Blood Count 10.1 10^3/uL (4.0-10.0)
[2021-04-11 07:24] LABS: Alanine Aminotransferase 15 U/L (0-33); Albumin Level 3.9 g/dL (3.5-5.2); Alkaline Phosphatase 62 IU/L (35-105); Anion Gap 16.1 (5-19); Aspartate Amino Transferase 14 U/L (0-32); Blood Urea Nitrogen 13 mg/dL (8-23); Carbon Dioxide 22 mmol/L (22-29); Chloride 106 mmol/L (98-107); Globulin 2.5 g/dL (1.3-4.6); Glucose 192 mg/dL (65-115); Osmolality Calculated 295 mOsm/kg (285-295); Phosphorus 3.1 mg/dL (2.5-4.5); Potassium 4.1 mmol/L (3.5-5.1); Sodium 140 mmol/L (136-145); Total Bilirubin 0.5 mg/dL (0.15-1.2); Total Protein 6.4 g/dL (6.6-8.7)
[2021-04-11 07:43] VITALS: BP 135/71; PULSE 65; RESP 16; TEMP 36.7; O2SAT 98
[2021-04-11 08:08] LABS: Slide Review Slide Review Perform
[2021-04-11 08:19] VITALS: PULSE 72; RESP 16; O2SAT 98
[2021-04-11] MEDS: aspirin 81 mg EC Tablet PO (08:33)
[2021-04-11] MEDS: clopidogrel 75 mg Tablet PO (08:33)
[2021-04-11] MEDS: levothyroxine 100 mcg Tablet PO (08:33)
[2021-04-11] MEDS: lisinopril 5 mg Tablet PO (08:34)
--- NOTE | 2021-04-11 10:39 | PC.NURSE ---
Received verbal order to stop fluids from Dr. Do. Employment And Claims Aide placed order.
[2021-04-11 10:56] LABS: Glucose Point of Care 148 mg/dL (70-110)
[2021-04-11 11:50] VITALS: BP 132/74; PULSE 68; RESP 16; TEMP 36.8; O2SAT 97
--- NOTE | 2021-04-11 12:10 | P.DS_ITS ---
Discharge Providers Date of Admission: 04/10/21 16:29 Date of Discharge: April 11, 2021 Attending Provider at Admission: Braeden Hernandez MD Attending Provider at Discharge: Mal Do MD Primary Care Provider: Lynette Smalls MD Diagnoses at Discharge Discharge Diagnosis (1) Near syncope: Status: Acute (2) B12 deficiency: Status: Acute (3) TIA (transient ischemic attack): Status: Acute (4) Dyslipidemia: Status: Acute (5) Osteoarthritis of right hip: Status: Acute (6) Tinnitus: Status: Acute Reason for Visit Reason for Visit: HEADACHE/ VERTIGO Hospital Course Hospital Course This is a 75-year-old female with a past medical history of myasthenia gravis on CellCept and steroids for about 6 years in the past, 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, has multiple allergies, who presents [facility] due to dizziness and presyncope Patient was admitted to [facility] for dizziness and presyncope Dizziness, likely secondary to TIA, some component related to dehydration, symptomatology improved with hydration, aspirin, Plavix, she has an allergy to statin, CT of the head had no acute findings, carotid artery ultrasound no hemodynamically significant stenosis, cardiac echo showed an EF of 65%, grade 2 out of 4 diastolic dysfunction, TSH within normal limits, VQ scan negative for pulmonary emboli, her orthostats were negative. We will discharge her aspirin 81 mg, with Plavix 75 mg for 3 weeks which then should be discontinued, continue aspirin 81 mg, has an allergy to statin, lisinopril 10 mg She did have hypertensive urgency in the emergency room, which improved, blood pressures have been borderline here, will increase her lisinopril to 10 mg daily During hospitalization, she did have complaints of intermittent dysphagia, she always has diplopia, but generalized tiredness, which she attributes to her myasthenia, she tells me that she does not really get myasthenia crisis, she knows her myasthenia gravis well, and she typically improves with Solu-Medrol. I advised patient that there is a risk of her developing a myasthenia crisis with steroid such as Solu-Medrol, however patient is adamant that she knows her myasthenia well, and typically a shot of Solu-Medrol will help her myasthenia. Patient was given Solu-Medrol 125 mg after discussion of the risk and benefits, she voiced understanding, all questions answered, agreed to proceed. Patient was monitored for the next 24 hours, the morning of 04/11/2021, she is feeling significantly better, ambulating with physical therapy, her weakness had significantly improved, no dysphagia reported, follow-up with neurology, monitor for myasthenia crisis symptoms if so come back to emergency room Physical Exam Const: COMMON NORMALS: no acute distress and patient oriented x3 Resp: COMMON NORMALS: normal respiratory effort, No retractions, No use of accessory muscles and clear to auscultation bilaterally AUSCULTATION: clear to auscultation bilaterally Cardio: COMMON NORMALS: regular rate, regular rhythm, S1 normal heart sound present and S2 normal heart sound present RATE: regular rate RHYTHM: regular rhythm HEART SOUNDS: S1 normal heart sound present and S2 normal heart sound present GI: COMMON NORMALS: Normal to inspection, nondistended, normoactive bowel sounds present and Soft to palpation PALPATION: Yes Soft to palpation Extremity: COMMON NORMALS: no pedal edema Neuro: COMMON NORMALS: patient oriented x3 Psych: COMMON NORMALS: mental status grossly normal Discharge Data Data Completed and Pending: Completed Studies During Hospitalization Category Date Time Status CT abdomen pelvis wo con [id number] Urge nt Cat Scan 04/09/21 22:[address] head wo con* [id number] Urgent Cat Scan 04/09/21 20:28 Completed XR chest 1V ranjeet ble [id number] Urgent Exams 04/09/21 17:44 Completed NM pul perfusion [id number] Stat Nuc Med 04/09/21 21:22 Completed CV carotid duplex BI* [id number] Routine Ultrasound 04/10/21 Completed CV. echo complete * [id number] Routine Ultrasound 04/10/21 Completed Pending at discharge Category Date Time Status Complete Blood Co unt w/Auto AM LABS Lab 04/12/21 04:00 Ordered Complete Blood Co unt w/Auto AM LABS Lab 04/13/21 04:00 Ordered Comprehensive Met abolic Panel AM LA BS Lab 04/12/21 04:00 Ordered Comprehensive Met abolic Panel AM LA BS Lab 04/13/21 04:00 Ordered Magnesium AM LABS Lab 04/12/21 04:00 Ordered Magnesium AM LABS Lab 04/13/21 04:00 Ordered Phosphorus AM LAB S Lab 04/12/21 04:00 Ordered Phosphorus AM LAB S Lab 04/13/21 04:00 Ordered Labs from last 24 hours 04/11/21 04/11/21 04/11/21 10:52 06:35 06:35 WBC 10.1 H RBC 3.99 L Hgb 12.9 Hct 39.0 MCV 97.7 MCH 32.3 MCHC 33.1 RDW 12.9 Plt Count 130 MPV 12.9 H Neut % (Auto) 81.8 Lymph % (Auto) 12.6 [place] % (Auto) 4.9 Eos % (Auto) 0.0 Baso % (Auto) 0.2 Neut # (Auto) 8.23 H Lymph # (Auto) 1.3 [place] # (Auto) 0.5 Eos # (Auto) 0.0 Baso # (Auto) 0.0 Nucleated RBC % (a uto) 0 Nucleated RBCs # 0.0 Sodium 140 Potassium 4.1 Chloride 106 Carbon Dioxide 22 Anion Gap 16.1 BUN 13 Creatinine 0.8 GFR Calculation Not Reportable Glucose 192 H POC Glucose 148 H Calculated Osmolal ity 295 Calcium 9.0 Phosphorus 3.1 Magnesium 2.0 Total Bilirubin 0.5 AST 14 ALT 15 Alkaline Phosphata se 62 Total Protein 6.4 L Albumin 3.9 Globulin 2.5 04/11/21 04/10/21 04/10/21 06:29 21:07 16:52 WBC RBC Hgb Hct MCV MCH MCHC RDW Plt Count MPV Neut % (Auto) Lymph % (Auto) [place] % (Auto) Eos % (Auto) Baso % (Auto) Neut # (Auto) Lymph # (Auto) [place] # (Auto) Eos # (Auto) Baso # (Auto) Nucleated RBC % (a uto) Nucleated RBCs # Sodium Potassium Chloride Carbon Dioxide Anion Gap BUN Creatinine GFR Calculation Glucose POC Glucose 197 H 294 H 273 H Calculated Osmolal ity Calcium Phosphorus Magnesium Total Bilirubin AST ALT Alkaline Phosphata se Total Protein Albumin Globulin Vitals: Last Vital Signs Temp 98.3 F 04/11/21 11:50 Pulse 68 04/11/21 11:50 Resp 16 04/11/21 11:50 BP 132/74 04/11/21 11:50 Pulse Ox 97 04/11/21 11:50 Discharge Plan Discharge Patient Disposition: Home Health Service Condition: Stable Prescriptions: New aspirin 81 mg Tablet,Delayed Release (Dr/Ec) 81 mg PO DAILY 30 Days Qty: 30 RF: 0 clopidogrel 75 mg Tablet 75 mg PO DAILY 19 Days Qty: 19 RF: 0 Continued nitroglycerin [Nitrostat] 0.4 mg tablet, sublingual 0.4 mg SUBLINGUAL Q5M PRN (Reason: Chest Pain) RF: 0 pen needle, diabetic [UltiCare Pen Needle] 32 gauge x 5/32 needle See Rx Instructions .ROUTE .COMPLEX Qty: 100 RF: 2 True Metrix Glucose Test Strip Strip See Rx Instructions .ROUTE .COMPLEX Qty: 150 RF: 4 cyanocobalamin (vitamin B-12) 1,000 mcg/mL solution See Rx Instructions .ROUTE .COMPLEX RF: 0 Nasonex 50 mcg/actuation [place],Non-Aerosol 2 spray INTRANASAL DAILY PRN (Reason: Allergy Symptoms) RF: 0 Ventolin HFA 90 mcg/actuation HFA aerosol inhaler 2 puff INHALATION Q6H PRN (Reason: Shortness Of Breath) RF: 0 glipizide 5 mg tablet 5 mg PO DAILY RF: 0 Levemir FlexTouch U-100 Insuln 100 unit/mL (3 mL) insulin pen 50 unit SUBCUT BEDTIME RF: 0 Synthroid 100 mcg tablet 100 mcg PO DAILY RF: 0 Changed lisinopril 5 mg tablet 10 mg PO DAILY Qty: 0 RF: 0 Discontinued aspirin 325 mg Tablet 325 mg PO DAILY RF: 0 Discharge Orders: Discharge Order (Routine); Ordered 04/11/21 Ordered By: Mal Do Other Ambulatory Orders: CA cardiac event monitor (Routine) Timeframe: 2 Days Facility: [facility] - Location: Cardiac Diagnostic Laboratory Ordered By: Mal Do Referrals: Home and Community Services [Other] Jimena Khan MD [Physician] - 1 month (Please call Monday to schedule a follow up appointment.) Lynette Smalls MD [Primary Care Provider] - (Please call Monday to schedule a follow up appointment.) Discharge Diet: Cardiac Discharge Activity: Resume usual activity Patient Instructions: Prednisone (By mouth), Aspirin (By mouth), Clopidogrel (By mouth), Opioid Safety, Stroke Stoplight, TIA, Vertigo Activity Restrictions/Additional Instructions: -If you have recurrent strokelike symptoms please call 911 -Follow-up with neurology Discharge Attestations Time Spent in Discharge Care*: less than 30 min Quality Metrics Clinical Quality Measures During this hospital stay, did patient experience: None Coding Level of Care Code Acute Chg FW DC note Exam Detailed Diagnoses Near syncope R55 B12 deficiency E53.8 TIA (transient ischemic attack) G45.9 Dyslipidemia E78.5 Osteoarthritis of right hip M16.11 Tinnitus H93.19
--- NOTE | 2021-04-11 12:25 | PC.NURSE ---
Discharge instructions given to patient. Patient verbalized understanding.
--- NOTE | 2021-04-11 14:51 | PC.NURSE ---
Patient transported by [facility].
[2021-04-11 14:55] VITALS: BP 132/74; PULSE 68; RESP 16; TEMP 36.8; O2SAT 97
== END 2021-04-11 14:57 | disposition home or self-care (01) | DRG 69 ==
LOC: ER 23:55 → MEDSURG 04-10 00:08
PROVIDERS: Admitting Provider Internal Medicine; Emergency Provider Family Medicine; PCP Family Medicine; Visit Provider Family Medicine
DX: G45.9 Transient cerebral ischemic attack, unspecified (principal); I16.0 Hypertensive urgency; R55 Syncope and collapse; G70.00 Myasthenia gravis without (acute) exacerbation; M16.11 Unilateral primary osteoarthritis, right hip; E03.9 Hypothyroidism, unspecified; F41.9 Anxiety disorder, unspecified; I25.10 Atherosclerotic heart disease of native coronary artery without angina pectoris; E53.8 Deficiency of other specified B group vitamins; Z86.010 Personal history of colon polyps; E78.5 Hyperlipidemia, unspecified; I10 Essential (primary) hypertension; G25.0 Essential tremor; R91.8 Other nonspecific abnormal finding of lung field; E11.42 Type 2 diabetes mellitus with diabetic polyneuropathy; M81.0 Age-related osteoporosis without current pathological fracture; H93.19 Tinnitus, unspecified ear; E86.0 Dehydration; Z79.4 Long term (current) use of insulin; R13.10 Dysphagia, unspecified
CPT/HCPCS: 36415; 36416; 70450; 71045; 74176; 78580; 80048; 80053; 80061; 81003; 82607; 82962; 83036; 83605; 83735; 83880; 84100; 84443; 84484; 85025; 85378; 93005; 93306; 93880; 96372; 97116; 97161; 99285; A9540; G0378; J1650; J1815; J2930; J7030

== ENCOUNTER → 2021-05-10 13:07 | Outpatient (BNVA) | payer MEDICARE, MEDICAID, SELFPAY | PROVIDERS: PCP Family Medicine; Referring Provider Family Medicine; Visit Provider Specialist | DX: G70.00 Myasthenia gravis without (acute) exacerbation (principal); R42 Dizziness and giddiness | CPT/HCPCS: 99215 ==

== ENCOUNTER → 2021-05-21 00:01 | Outpatient (BNVA) | payer MEDICARE, MEDICAID, SELFPAY | PROVIDERS: PCP Family Medicine; Visit Provider Nurse Practitioner Family | DX: Z20.822 Contact with and (suspected) exposure to COVID-19 (principal); J32.9 Chronic sinusitis, unspecified; R05 Cough; R50.9 Fever, unspecified | CPT/HCPCS: 87635 ==

== ENCOUNTER → 2021-07-12 11:15 | Outpatient (BNVA) | payer MEDICARE, MEDICAID, SELFPAY | PROVIDERS: PCP Family Medicine; Visit Provider Family Medicine | DX: E53.8 Deficiency of other specified B group vitamins (principal); E78.5 Hyperlipidemia, unspecified; E03.9 Hypothyroidism, unspecified; E11.42 Type 2 diabetes mellitus with diabetic polyneuropathy | CPT/HCPCS: 80053; 80061; 82607; 83036; 84443; 85025 ==

== ENCOUNTER → 2021-12-23 10:41 | Outpatient (BNVA) | payer MEDICARE, MEDICAID, SELFPAY | PROVIDERS: PCP Family Medicine; Visit Provider Family Medicine | DX: E03.9 Hypothyroidism, unspecified (principal); E11.42 Type 2 diabetes mellitus with diabetic polyneuropathy; E53.8 Deficiency of other specified B group vitamins; E78.5 Hyperlipidemia, unspecified; R60.9 Edema, unspecified | CPT/HCPCS: 80053; 80061; 82607; 83036; 84443 ==

== ENCOUNTER 2021-12-30 02:33 | Emergency (ER) | payer MEDICARE, MEDICAID, SELFPAY ==
[2021-12-30] VITALS (8 sets, daily range): BP systolic 123–158; BP diastolic 66–91; PULSE 80–118; RESP 16–21; TEMP 37.1; O2SAT 95–98
--- NOTE | 2021-12-30 02:41 | XRR_ITS ---
PROCEDURE INFORMATION: Exam: XR Chest Exam date and time: 12/30/2021 1:49 AM Age: 76 years old Clinical indication: Chest pressure; Patient HX: C/O chest pain with radiation to left arm. ; Additional info: Cp TECHNIQUE: Imaging protocol: XR of the chest. Views: 1 view. COMPARISON: CR (CHEST, ) 04/09/2021 6:03 PM FINDINGS: Lungs: Unremarkable. No consolidation. Pleural spaces: Unremarkable. No pleural effusion. No pneumothorax. Heart/Mediastinum: Unremarkable. No cardiomegaly. Bones/joints: Unremarkable. XR/XR chest 1V portable [id number] IMPRESSION: No acute findings.
--- NOTE | 2021-12-30 02:41 | ECG_ITS ---
[facility] Test Date: 2021-12-30 Pat Name: Monik Naidu Department: Room: Gender: Female Deburrer Machine: : 1945 Requested By: Dieudonne Solis Order Number: [id number] Jamie MD: Michael Becerra M.D. Measurements Intervals [place] Rate: 106 P: 56 FL: 173 QRS: 37 QRSD: 85 T: 24 QT: 344 QTc: 457 Interpretive Statements SINUS TACHYCARDIA NONSPECIFIC ST & T-WAVE ABNORMALITY Compared to ECG 04/10/2021 00:49:37 T-wave abnormality now present Sinus rhythm no longer present Electronically Signed On 12-30-2021 17:56:17 CDT by Michael Becerra M.D. [id number]
--- NOTE | 2021-12-30 02:48 | W.ED.CHESTPA ---
HPI - Chest Pain General: Chief Complaint: Chest Pain Stated Complaint: CP Time Seen by Provider: 12/30/21 02:41 Source: patient and EMS Mode of arrival: EMS Limitations: no limitations History of Present Illness: 76-year-old female has been having chest pain since last night. started having pain yesterday evening that was a pressure type pain in her center of her chest with some radiation to her shoulder. She states that she took an aspirin improved she went to sleep. States the pain started again tonight was brought in by EMS she states that she is given a nitro in route along with aspirin and her pain is again resolved she had some slight dyspnea some high blood pressure at home also tachycardia denies any vomiting or diarrhea Associated symptoms: Reports dyspnea; Deny abdominal pain, fever(s), nausea or vomiting Review of Systems Const: Denies: fever(s), chills, body aches or change in appetite Eyes: Denies: blurry vision or eye discomfort ENMT: Denies: throat pain or dental pain Card: Reports: chest pain Resp: Reports: dyspnea GI: Denies: abdominal pain, nausea, vomiting or diarrhea : Denies: dysuria Musc: Denies: neck pain or back pain Skin/Breast: Denies: rash Neuro: Denies: headache(s) Psych: Denies: depression Caleb/Lymph: Denies: easy bruising All/Imm: Denies: urticaria PFSH ED PFSH: Medical History Acquired hypothyroidism Anxiety Arteriosclerotic vascular disease B12 deficiency Colon polyp Dyslipidemia Encounter for counseling for care management of patient with chronic conditions and complex health needs using nurse-based model Enrolled in chronic care management Esophageal thickening Essential (primary) hypertension Essential tremor Excessive daytime sleepiness Lung nodule LLL 4-5 mm, new nodule in right upper lobe Myasthenia gravis Neuropathy Osteoarthritis of sacroiliac joint Osteoporosis Positive skin test for tuberculosis Type 2 diabetes mellitus Vitamin D deficiency Surgical History History of bunionectomy Hx of appendectomy Hx of arthroscopy of right knee Hx of cholecystectomy Hx of hysterectomy, total (~1974) Hx of oral surgery Hx of tonsillectomy Family History Father , age 67 Stroke Cancer lung Mother Cancer melanoma, pancreatic CAD (coronary artery disease) multiple stents Social History Smoking and tobacco status: never smoked Alcohol intake: never Lives independently: Yes Household members: none Housing: Apartment Current occupational status: retired History of recent travel: No Current gender identity: Female Kalie/[employer]regation: [employer] Female Reproductive History: Para: 2 Course Vital Signs: Vital signs: Vital Signs Temperature 98.7 F 12/30/21 02:34 Pulse Rate 80 12/30/21 05:00 Respiratory Rate 16 12/30/21 05:00 Blood Pressure 142/76 12/30/21 05:00 Pulse Oximetry 97 12/30/21 05:00 MDM - Chest Pain Medical Decision Making Patient presents for chest pains atypical in nature. 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 Lab Data : 12/30/21 02:55 12/30/21 02:55 Laboratory Results WBC 8.5 10^3/uL (4.0-10.0) 12/30/21 02:55 RBC 3.92 10^6/uL (4.1-5.3) L 12/30/21 02:55 Hgb 12.9 g/dL (11.5-15.3) 12/30/21 02:55 Hct 38.1 % (37.0-47.0) 12/30/21 02:55 MCV 97.2 fl (81-99) 12/30/21 02:55 MCH 32.9 pg (28.0-34.0) 12/30/21 02:55 MCHC 33.9 g/dL (30.0-36.0) 12/30/21 02:55 RDW 13.1 % (12.1-15.1) 12/30/21 02:55 Plt Count 189 10^3/cmm (130-400) 12/30/21 02:55 MPV 11.5 fL (7.4-10.4) H 12/30/21 02:55 Neut % (Auto) 71.3 % 12/30/21 02:55 Lymph % (Auto) 17.8 % 12/30/21 02:55 [place] % (Auto) 7.2 % 12/30/21 02:55 Eos % (Auto) 2.4 % 12/30/21 02:55 Baso % (Auto) 0.9 % 12/30/21 02:55 Neut # (Auto) 6.06 10^3/uL (1.8-7.7) 12/30/21 02:55 Lymph # (Auto) 1.5 10^3/uL (0.8-4.8) 12/30/21 02:55 [place] # (Auto) 0.6 10^3/uL (0.2-0.9) 12/30/21 02:55 Eos # (Auto) 0.2 10^3/uL (0.0-0.8) 12/30/21 02:55 Baso # (Auto) 0.1 10^3/uL (0.0-0.1) 12/30/21 02:55 Nucleated RBC % (auto) 0 % 12/30/21 02:55 Nucleated RBCs # 0.0 /100WBC 12/30/21 02:55 PT 12.40 SECONDS (12.1-14.9) 12/30/21 03:05 INR 0.90 (0.8-1.2) 12/30/21 03:05 D-Dimer 0.68 ug/mIFEU (0-0.59) H 12/30/21 03:05 Sodium 137 mmol/L (136-145) 12/30/21 02:55 Potassium 3.8 mmol/L (3.5-5.1) 12/30/21 02:55 Chloride 103 mmol/L (98-107) 12/30/21 02:55 Carbon Dioxide 18 mmol/L (22-29) L 12/30/21 02:55 Anion Gap 19.8 (5-19) H 12/30/21 02:55 BUN 11 mg/dL (8-23) 12/30/21 02:55 Creatinine 0.7 mg/dL (0.5-0.9) 12/30/21 02:55 GFR Calculation Not Reportable 12/30/21 02:55 Glucose 211 mg/dL (65-115) H 12/30/21 02:55 Calculated Osmolality 290 mOsm/kg (285-295) 12/30/21 02:55 Calcium 9.2 mg/dL (8.5-10.5) 12/30/21 02:55 Total Bilirubin 0.3 mg/dL (0.15-1.2) 12/30/21 02:55 AST 14 U/L (0-32) 12/30/21 02:55 ALT 13 U/L (0-33) 12/30/21 02:55 Alkaline Phosphatase 72 IU/L (35-105) 12/30/21 02:55 Troponin T Baseline 9 ng/L (0-10) 12/30/21 02:55 Troponin T 120 Minute 8.25 ng/L (0-10) 12/30/21 04:40 Delta Troponin T -0.75 ABS# (0-10) L 12/30/21 04:40 NT-Pro-B Natriuret Pep 44 pg/mL (0-450) 12/30/21 02:55 Total Protein 6.7 g/dL (6.6-8.7) 12/30/21 02:55 Albumin 4.1 g/dL (3.5-5.2) 12/30/21 02:55 Globulin 2.6 g/dL (1.3-4.6) 12/30/21 02:55 Lipase 21 U/L (13-60) 12/30/21 02:55 EKG Data EKG 1: I personally reviewed and interpreted this EKG as follows: EKG interpretation date: 12/30/21 EKG interpretation time: 02:38 Interpretation: sinus tach hr [address] or t wave abnormalities qrs 85 qtc 406 EKG 2: I personally reviewed and interpreted this EKG as follows: EKG interpretation date: 12/30/21 EKG interpretation time: 05:01 Interpretation: nsr hr [address] or t wave abnormalities qrs 94 qtc 421 Discharge Plan Discharge Patient Disposition: Home Clinical Impression: Chest pain Condition: Stable Prescriptions: No Action potassium chloride 10 mEq tablet extended release 10 meq PO DAILY Qty: 30 2RF cyanocobalamin (vitamin B-12) 1,000 mcg/mL solution See Rx Instructions .ROUTE .COMPLEX Qty: 3 2RF Rx Instructions: inject as directed once monthly nitroglycerin [Nitrostat] 0.4 mg tablet, sublingual 0.4 mg SUBLINGUAL Q5M PRN (Reason: Chest Pain) 0RF famotidine [Pepcid AC] 20 mg tablet 20 mg PO BID 0RF diphenhydramine HCl [Benadryl Allergy] 25 mg tablet 25 mg PO TID PRN0RF True Metrix Glucose Test Strip Strip See Rx Instructions .ROUTE .COMPLEX Qty: 150 4RF Dose Instruction: TO test TWICE DAILY NEEDED Rx Instructions: TO test TWICE DAILY NEEDED Synthroid 100 mcg tablet 100 mcg PO DAILY Qty: 90 1RF Levemir FlexTouch U-100 Insuln 100 unit/mL (3 mL) insulin pen See Rx Instructions .ROUTE .COMPLEX Qty: 15 2RF Dose Instruction: inject 50 units SUBCUTANEOUSLY AT BEDTIME Rx Instructions: inject 50 units SUBCUTANEOUSLY AT BEDTIME (DME) pen needle, diabetic [UltiCare Pen Needle] 32 gauge x 5/32 needle See Rx Instructions .ROUTE .COMPLEX Qty: 100 2RF Dose Instruction: USE DIRECTED Rx Instructions: USE DIRECTED glipizide 5 mg tablet See Rx Instructions .ROUTE .COMPLEX Qty: 30 0RF Dose Instruction: TAKE ONE TABLET BY MOUTH EVERY DAY Rx Instructions: TAKE ONE TABLET BY MOUTH EVERY DAY triamterene-hydrochlorothiazid 37.5-25 mg capsule See Rx Instructions .ROUTE .COMPLEX Qty: 30 3RF Dose Instruction: TAKE ONE CAPSULE BY MOUTH EVERY MORNING As Needed FOR EDEMA Rx Instructions: TAKE ONE CAPSULE BY MOUTH EVERY MORNING As Needed FOR EDEMA Nasonex 50 mcg/actuation [place],Non-Aerosol 2 spray INTRANASAL DAILY PRN (Reason: Allergy Symptoms) 0RF Ventolin HFA 90 mcg/actuation HFA aerosol inhaler 2 puff INHALATION Q6H PRN (Reason: Shortness Of Breath) 0RF lisinopril 5 mg tablet 10 mg PO DAILY Qty: 0 0RF Discharge Orders: Discharge ED (Routine); Ordered 12/30/21 Ordered By: Dieudonne Solis Referrals: Homer Villalobos MD [Physician] - 1-3 days Lynette Smalls MD [Primary Care Provider] - Discharge Diet: Advance as tolerated Discharge Activity: Resume usual activity Patient Instructions: Chest Pain (ED) Coding Level of Care Code ED Security Vehicle Patrol Officer for Marcela Orona
[2021-12-30 03:09] LABS: Basophils # 0.1 10^3/uL (0.0-0.1); Basophils % 0.9 %; Eosinophils # 0.2 10^3/uL (0.0-0.8); Eosinophils % 2.4 %; Hematocrit 38.1 % (37.0-47.0); Hemoglobin 12.9 g/dL (11.5-15.3); Lymphocytes # 1.5 10^3/uL (0.8-4.8); Lymphocytes % 17.8 %; Mean Corpuscular HGB Conc 33.9 g/dL (30.0-36.0); Mean Corpuscular Hemoglobin 32.9 pg (28.0-34.0); Mean Corpuscular Volume 97.2 fl (81-99); Mean Platelet Volume 11.5 fL (7.4-10.4); Monocytes # 0.6 10^3/uL (0.2-0.9); Monocytes % 7.2 %; Neutrophils # 6.06 10^3/uL (1.8-7.7); Neutrophils % 71.3 %; Nucleated Red Blood Cells % 0 %; Platelet Count 189 10^3/cmm (130-400); Red Blood Count 3.92 10^6/uL (4.1-5.3); Red Cell Distribution Width 13.1 % (12.1-15.1); White Blood Count 8.5 10^3/uL (4.0-10.0)
[2021-12-30 03:30] LABS: Troponin(5th) Baseline 9 ng/L (0-10)
[2021-12-30 03:31] LABS: D Dimer 0.68 ug/mIFEU (0-0.59)
[2021-12-30 03:33] LABS: Alanine Aminotransferase 13 U/L (0-33); Albumin Level 4.1 g/dL (3.5-5.2); Alkaline Phosphatase 72 IU/L (35-105); Anion Gap 19.8 (5-19); Aspartate Amino Transferase 14 U/L (0-32); Blood Urea Nitrogen 11 mg/dL (8-23); Calcium 9.2 mg/dL (8.5-10.5); Carbon Dioxide 18 mmol/L (22-29); Chloride 103 mmol/L (98-107); Globulin 2.6 g/dL (1.3-4.6); Glucose 211 mg/dL (65-115); Lipase 21 U/L (13-60); NT Pro B Type Natriuretic Pept 44 pg/mL (0-450); Osmolality Calculated 290 mOsm/kg (285-295); Potassium 3.8 mmol/L (3.5-5.1); Sodium 137 mmol/L (136-145); Total Bilirubin 0.3 mg/dL (0.15-1.2); Total Protein 6.7 g/dL (6.6-8.7)
--- NOTE | 2021-12-30 04:41 | ECG_ITS ---
[facility] Test Date: 2021-12-30 Pat Name: Monik Naidu Department: Room: Gender: Female Certified Ophthalmic Medical Technician: : 1945 Requested By: Dieudonne Solis Order Number: [id number] Jamie MD: Michael Becerra M.D. Measurements Intervals [place] Rate: 80 P: 46 MI: 144 QRS: 27 QRSD: 94 T: 13 QT: 385 QTc: 445 Interpretive Statements SINUS RHYTHM Compared to ECG 12/30/2021 02:38:37 Sinus tachycardia no longer present T-wave abnormality no longer present Electronically Signed On 12-30-2021 18:00:48 CDT by Michael Becerra M.D. [email or web address] [id number]
[2021-12-30 05:11] LABS: Troponin 5 2HR 8.25 ng/L (0-10)
[2021-12-30 05:16] LABS: Troponin 5 2HR Delta -0.75 ABS# (0-10)
--- NOTE | 2021-12-30 05:39 | PC.NURSE ---
Contacted [employer] assistance for transport home. Pt window for picker tender is 30 min to 3 hours. They will contact us when they arrive.
--- NOTE | 2021-12-30 10:07 | DCPLANNER ---
Addendum entered by Deonna Carbajal 01/27/22 11:32: Patient had a follow up appointment scheduled for 01.03.22 with heart care - patient did attend appointment. Original Note: manager strategic partnerships had message to schedule a follow up appointment for patient with [facility]. manager strategic partnerships called [facility], spoke with Angela Rodriguez, gave clinic patients information. A follow up appointment was scheduled for Monday, January 03, 2022 at 10:[address] Villalobos. manager strategic partnerships called patient with appointment information.
== END 2021-12-30 07:32 | disposition home or self-care (01) ==
PROVIDERS: Emergency Provider Emergency Medicine; PCP Family Medicine
DX: R07.9 Chest pain, unspecified (principal); Z79.84 Long term (current) use of oral hypoglycemic drugs; Z79.4 Long term (current) use of insulin; E78.5 Hyperlipidemia, unspecified; I10 Essential (primary) hypertension; E11.9 Type 2 diabetes mellitus without complications
CPT/HCPCS: 36415; 71045; 80053; 83690; 83880; 84484; 85025; 85378; 85610; 93005; 99283

== ENCOUNTER → 2022-01-03 10:12 | Outpatient (BNVA) | payer MEDICARE, MEDICAID, SELFPAY | PROVIDERS: PCP Family Medicine; Visit Provider Internal Medicine Cardiovascular Disease | DX: G45.9 Transient cerebral ischemic attack, unspecified (principal); I49.9 Cardiac arrhythmia, unspecified; E11.42 Type 2 diabetes mellitus with diabetic polyneuropathy; E03.9 Hypothyroidism, unspecified | CPT/HCPCS: 99204 ==

== ENCOUNTER → 2022-02-28 10:16 | Outpatient (BNVA) | payer MEDICARE, MEDICAID, SELFPAY | PROVIDERS: PCP Family Medicine; Visit Provider Internal Medicine Cardiovascular Disease | DX: R07.89 Other chest pain (principal); E78.5 Hyperlipidemia, unspecified; Z86.73 Personal history of transient ischemic attack (TIA), and cerebral infarction without residual deficits; R60.9 Edema, unspecified; R00.2 Palpitations; R03.0 Elevated blood-pressure reading, without diagnosis of hypertension; E11.9 Type 2 diabetes mellitus without complications; Z79.4 Long term (current) use of insulin | CPT/HCPCS: 99213; 99214 ==

== ENCOUNTER → 2022-03-21 08:38 | Outpatient (BNVA) | payer MEDICARE, MEDICAID, SELFPAY | PROVIDERS: PCP Family Medicine; Visit Provider Family Medicine | DX: E11.9 Type 2 diabetes mellitus without complications (principal); E53.8 Deficiency of other specified B group vitamins; E78.5 Hyperlipidemia, unspecified; E03.9 Hypothyroidism, unspecified | CPT/HCPCS: 80053; 80061; 82607; 83036; 84443; 85025 ==

== ENCOUNTER 2022-03-31 07:51 | Outpatient (CLI) | payer MEDICARE, MEDICAID, SELFPAY ==
[2022-03-31 08:11] VITALS: BMI 29.0
--- NOTE | 2022-03-31 08:57 | ECG_ITS ---
[facility] Test Date: 2022-03-31 Pat Name: Monik Naidu Department: Room: Gender: Female Customer Loyalty Representative: Susan Ybarra : 1945 Requested By: Homer Villalobos Order Number: [id number] Jamie MD: Homer Villalobos M.D. Interpretive Statements NAME OF STUDY: LEXISCAN SESTAMIBI STRESS TEST INDICATION: Chest Pain, PROCEDURE: At the baseline, the EKG revealed possible sinus rhythm with a heavy baseline artifact. The baseline blood pressure was 148/84 mm Hg with a heart rate of 88 beats/min. Lexiscan was infused over a period of 20 seconds. A total of 0.4 milligrams of Lexiscan was infused. The stress phase was continued for a total of 5 minutes. Heart rate at the end of the stress phase was 102 with a blood pressure 148/79. The EKG at the peak infusion revealed no significant changes. Sestamibi was injected 20 seconds after the Lexiscan infusion. Blood pressure at the end of the recovery phase was 146/74 with a heart rate of 102 per minute. CONCLUSION: 1. No significant EKG changes with the LexiScan infusion 2. No LexiScan induced chest pain or cardiac arrhythmia 3. Normal blood pressure and heart rate response 4. Sestamibi/sestamibi perfusion scan pending; see separate report. Electronically Signed On 04-01-2022 15:06:01 CDT by Homer Villalobos M.D. [id number]
--- NOTE | 2022-03-31 08:57 | NMCV_ITS ---
NM joe perf SPECT r/s* [id number] [place] Age: 76 Gender: F : 1945 Exam Date: 03/31/2022 09:31 Ordering Phys: Homer Villalobos MD ([email or web address]) Technologist: CMAELIA Blake Exam Location: [facility] Indications: SHORTNESS OF BREATH STRESS TEST Please see separate stress test report in [facility] for full findings IMAGE PROTOCOL Rest/Stress 1 Lexiscan Day Radiopharmaceutical Dose (mCi) Administration Site Administered by Rest: Tc-99m 10.5 IV CAMELIA Lazo Sestamibi Stress:Tc-99m 32.4 IV CAMELIA Lazo Sestamibi Rest: 31-Mar-2022 60 Discovery 630 Stress: 31-Mar-2022 30 Discovery 630 0.4mg Lexiscan. Supine position only as patient was unable to lay prone. SPECT RESULTS Technical Quality: Excellent Raw Data Analysis: Normal Image Corrections: No attenuation or motion correction applied Summed Stress Score: 0 Summed Rest Score: 0 Summed Difference Score: 0 PERFUSION FINDINGS Fairly uniform myocardial tracer uptake. No significant perfusion normalities were noted FUNCTIONAL RESULTS (calculated via Gated SPECT) Stress Image LV EF (%): 89 Stress EDV (mL):57 TID: 0.89 Stress ESV (mL):6 FUNCTIONAL FINDINGS: Segmental wall motion analysis revealing no gross wall motion abnormalities IMPRESSIONS 1. Uniform myocardial tracer uptake with no significant visual normalities. 2. Normal LV ejection fraction of 89%. 3. Segmental wall motion analysis revealing no gross wall motion abnormalities 4. Normal LV volume Low probability for coronary ischemia, based on the above findings No similar previous studies are available for comparison Dr Homer Villalobos MD [facility] (Electronically Signed) Final Date: 31 March 2022 16:56 S
[2022-03-31] MEDS: regadenoson 0.4 Mg/5 ml Syringe IVP (10:05)
[2022-03-31 10:24] VITALS: BP 146/74; PULSE 99
== END 2022-03-31 07:52 | disposition home or self-care (01) ==
LOC: CDL 07:53
PROVIDERS: PCP Family Medicine; Visit Provider Internal Medicine Cardiovascular Disease
DX: R06.02 Shortness of breath (principal)
CPT/HCPCS: 78452; 93017; A9500; J2785

== ENCOUNTER → 2022-06-15 12:07 | Outpatient (BNVA) | payer MEDICARE, MEDICAID, SELFPAY | PROVIDERS: PCP Family Medicine; Visit Provider Nurse Practitioner Family | DX: E03.9 Hypothyroidism, unspecified (principal); E11.42 Type 2 diabetes mellitus with diabetic polyneuropathy; R53.83 Other fatigue; R53.1 Weakness; M25.50 Pain in unspecified joint; R55 Syncope and collapse | CPT/HCPCS: 80053; 80061; 83540; 83550; 84439; 84443; 84481 ==

== ENCOUNTER → 2022-10-17 10:43 | Outpatient (BNVA) | payer MEDICARE, MEDICAID, SELFPAY | PROVIDERS: PCP Family Medicine; Visit Provider Nurse Practitioner Family | DX: E11.9 Type 2 diabetes mellitus without complications (principal); R53.83 Other fatigue; E78.5 Hyperlipidemia, unspecified; E03.9 Hypothyroidism, unspecified; E11.42 Type 2 diabetes mellitus with diabetic polyneuropathy | CPT/HCPCS: 80053; 80061; 83036 ==

== ENCOUNTER → 2023-02-02 09:50 | Outpatient (BNVA) | payer MEDICARE, MEDICAID, SELFPAY | PROVIDERS: PCP Family Medicine; Visit Provider Family Medicine | DX: C43.9 Malignant melanoma of skin, unspecified (principal); E03.9 Hypothyroidism, unspecified; E11.9 Type 2 diabetes mellitus without complications; E53.8 Deficiency of other specified B group vitamins; E55.9 Vitamin D deficiency, unspecified; E11.42 Type 2 diabetes mellitus with diabetic polyneuropathy; I10 Essential (primary) hypertension | CPT/HCPCS: 80053; 80061; 82306; 82607; 83036; 84443 ==

== ENCOUNTER 2023-03-03 10:00 | Oncology outpatient (recurring) (ONCR) | payer MEDICARE, MEDICAID, SELFPAY ==
[2023-03-03 10:00] VITALS: BP 120/78; PULSE 74; RESP 18; TEMP 36.6; O2SAT 98
--- NOTE | 2023-03-03 12:17 | PC.NURSE ---
Invinitae test drawn from the the right ac with the MOB orthotics technician assisting due to hard to find veins.mm
== END 2023-03-08 23:59 | disposition home or self-care (01) ==
PROVIDERS: PCP Family Medicine; Visit Provider Internal Medicine Medical Oncology
DX: Z01.89 Encounter for other specified special examinations (principal)
CPT/HCPCS: 36415; 99205

== ENCOUNTER 2023-04-01 05:40 | Outpatient (CLI) | payer MEDICARE, MEDICAID, SELFPAY ==
--- NOTE | 2023-04-01 09:00 | PETR_ITS ---
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 Then, PET images were obtained. Attenuation corrected images were constructed using the CT scan. Fused images of PET and CT were reviewed. The standardized uptake values (SUV) reported below are maximum values within a region of interest, expressed in gm/ml. Exam includes the whole body. Radiopharmaceutical: 12.03 mCi F-18 FDG (Fluorodeoxyglucose), IV. Time of imaging post radiopharmaceutical administration: 1 hour Injection site: Right AC COMPARISON: CT abdomen pelvis wo con [id number] 04/09/2021 11:38 PM FINDINGS: Brain: Visualized brain has normal physiologic uptake. Orbits: Bilateral lens extractions. Pharynx: No abnormal uptake. Larynx: No abnormal uptake. Lungs, pleura and trachea: Calcified granuloma in the right lower lobe. No suspicious pulmonary nodules are seen. Heart: Normal physiologic uptake. Mediastinal space: No abnormal uptake. Liver: Probable small cyst in the right hepatic lobe. Gallbladder and bile ducts: Cholecystectomy. Pancreas: No abnormal uptake. Spleen: No abnormal uptake. Adrenal glands: No abnormal uptake. Kidneys and ureters: Left renal parenchymal and sinus cysts. Stomach and bowel: No abnormal uptake. Reproductive: Hysterectomy. Vasculature: No abnormal uptake. Lymph nodes: No abnormal uptake. No lymphadenopathy in the head, neck, chest, abdomen, pelvis, and extremities. Bones/joints: Small right knee joint effusion with probable small Grajeda cyst. Advanced right hip degenerative changes. Postsurgical changes in the head of the bilateral 1st metatarsal heads. Soft tissues: No abnormal uptake in the visualized head, neck, chest, abdomen, pelvis, and extremities. PET/PET WB melanoma INITIAL [id number] IMPRESSION: No specific evidence of metastatic disease.
== END 2023-04-01 05:41 | disposition home or self-care (01) ==
LOC: RAD 04-03 05:41
PROVIDERS: PCP Family Medicine; Visit Provider Internal Medicine Medical Oncology
DX: C43.39 Malignant melanoma of other parts of face (principal)
CPT/HCPCS: 78816; A9552

== ENCOUNTER → 2023-05-24 09:36 | Outpatient (BNVA) | payer MEDICARE, MEDICAID, SELFPAY | PROVIDERS: PCP Family Medicine; Visit Provider Nurse Practitioner Family | DX: E11.42 Type 2 diabetes mellitus with diabetic polyneuropathy (principal); E03.9 Hypothyroidism, unspecified; E78.5 Hyperlipidemia, unspecified; I10 Essential (primary) hypertension; E55.9 Vitamin D deficiency, unspecified; E11.9 Type 2 diabetes mellitus without complications; J30.2 Other seasonal allergic rhinitis; M25.551 Pain in right hip; C43.39 Malignant melanoma of other parts of face; E53.8 Deficiency of other specified B group vitamins | CPT/HCPCS: 80053; 80061; 82306; 83036 ==

== ENCOUNTER 2023-08-08 08:26 | Oncology outpatient (recurring) (ONCR) | payer MEDICARE, MEDICAID, SELFPAY ==
[2023-08-08 10:09] LABS: Basophils # 0.1 10^3/uL (0.0-0.1); Basophils % 0.9 %; Eosinophils # 0.2 10^3/uL (0.0-0.8); Eosinophils % 2.7 %; Hematocrit 40.1 % (36-47); Lymphocytes # 1.5 10^3/uL (0.8-4.8); Lymphocytes % 24.3 %; Mean Corpuscular HGB Conc 33.7 g/dL (30-55); Mean Corpuscular Hemoglobin 32.7 pg (27-33); Mean Corpuscular Volume 97.1 fl (85-98); Mean Platelet Volume 11.6 fL (7.4-10.4); Monocytes # 0.4 10^3/uL (0.2-0.9); Neutrophils # 4.16 10^3/uL (1.8-7.7); Neutrophils % 65.8 %; Nucleated Red Blood Cells % 0 %; Platelet Count 213 10^3/cmm (157-399); Red Blood Count 4.13 10^6/uL (3.85-5.65); Red Cell Distribution Width 12.8 % (12.1-15.1); White Blood Count 6.33 10^3/uL (3.29-11.43)
[2023-08-08 10:22] LABS: Alanine Aminotransferase 13 U/L (0-33); Albumin Level 4.4 g/dL (3.5-5.2); Alkaline Phosphatase 80 U/L (35-105); Anion Gap 15.5 (5-19); Aspartate Amino Transferase 15 U/L (0-32); Blood Urea Nitrogen 12 mg/dL (8-23); Calcium 9.3 mg/dL (8.5-10.5); Carbon Dioxide 26 mmol/L (22-29); Chloride 103 mmol/L (98-107); Globulin 2.9 g/dL (1.3-4.6); Glucose 177 mg/dL (65-115); Lactate Dehydrogenase 200 U/L (135-214); Osmolality Calculated 294 mOsm/kg (285-295); Potassium 4.5 mmol/L (3.5-5.1); Sodium 140 mmol/L (136-145); Total Bilirubin 0.4 mg/dL (0.15-1.2); Total Protein 7.3 g/dL (6.6-8.7)
[2023-08-08 10:49] LABS: Erythrocyte Sedimentation Rate 18 mm/hr (0-15)
== END 2023-08-08 23:59 | disposition home or self-care (01) ==
PROVIDERS: PCP Family Medicine; Visit Provider Internal Medicine Medical Oncology
DX: C43.39 Malignant melanoma of other parts of face (principal); R50.9 Fever, unspecified; R59.0 Localized enlarged lymph nodes; N64.4 Mastodynia; E11.42 Type 2 diabetes mellitus with diabetic polyneuropathy; Z79.899 Other long term (current) drug therapy
CPT/HCPCS: 36415; 80053; 83615; 85025; 85651; 86140; 99214

== ENCOUNTER 2023-08-23 10:49 | Outpatient (CLI) | payer MEDICARE, MEDICAID, SELFPAY ==
--- NOTE | 2023-08-23 11:15 | US_ITS ---
WS: [id number] ULTRASOUND SOFT TISSUES LEFT cervical chain. HISTORY: melanoma, fever COMPARISON: None available. TECHNIQUE: 2-D and color Doppler imaging is submitted. Ultrasound is directed along the LEFT neck at the area of abnormality. There is no underlying mass id entified. No nodules or increased vascularity. IMPRESSION: Negative ultrasound LEFT neck.
== END 2023-08-23 10:50 | disposition home or self-care (01) ==
LOC: RAD 10:49
PROVIDERS: PCP Family Medicine; Visit Provider Internal Medicine Medical Oncology
DX: C43.39 Malignant melanoma of other parts of face (principal); R59.0 Localized enlarged lymph nodes
CPT/HCPCS: 76536

== ENCOUNTER 2023-09-04 13:33 | Outpatient (CLI) | payer MEDICARE, MEDICAID, SELFPAY ==
--- NOTE | 2023-09-04 14:02 | MM_ITS ---
WS: [id number] BILATERAL 3D TOMOSYNTHESIS DIGITAL DIAGNOSTIC MAMMOGRAPHY WITH CAD CLINICAL INFORMATION: breast pain HISTORY: LEFT breast pain COMPARISON: 2012 TECHNIQUE: Bilateral CC, MLO, and ML views. FINDINGS: Scattered fibroglandular densities bilaterally. A few incidental punctate calcifications with vascula r calcification. No suspicious focal mass, asymmetry, calcifications, or architectural distortion. Ultrasound LEFT suha ast is pending. ULTRASOUND BREAST LEFT TECHNIQUE: Ultrasound left breast focused area of concern. CLINICAL INFORMATION: breast pain FINDINGS: Ultrasound LEFT lateral breast area of concern. No cystic or solid lesions. No suspicious findings in the area of concern LEFT lateral breast or axilla. IMPRESSION: MM/[place] [id number] BI-RADS: 2-Benign FOLLOW UP: 1 Year Follow-up Recommend return to annual screening mammography.
--- NOTE | 2023-09-04 15:15 | US_ITS ---
WS: [id number] BILATERAL 3D TOMOSYNTHESIS DIGITAL DIAGNOSTIC MAMMOGRAPHY WITH CAD CLINICAL INFORMATION: breast pain HISTORY: LEFT breast pain COMPARISON: 2012 TECHNIQUE: Bilateral CC, MLO, and ML views. FINDINGS: Scattered fibroglandular densities bilaterally. A few incidental punctate calcifications with vascula r calcification. No suspicious focal mass, asymmetry, calcifications, or architectural distortion. Ultrasound LEFT suha ast is pending. ULTRASOUND BREAST LEFT TECHNIQUE: Ultrasound left breast focused area of concern. CLINICAL INFORMATION: breast pain FINDINGS: Ultrasound LEFT lateral breast area of concern. No cystic or solid lesions. No suspicious findings in the area of concern LEFT lateral breast or axilla. IMPRESSION: US/US breast LT limited* [id number] BI-RADS: 2-Benign FOLLOW UP: 1 Year Follow-up Recommend return to annual screening mammography.
== END 2023-09-04 13:34 | disposition home or self-care (01) ==
LOC: RAD 13:34
PROVIDERS: PCP Family Medicine; Visit Provider Internal Medicine Medical Oncology
DX: N64.4 Mastodynia (principal); Z12.31 Encounter for screening mammogram for malignant neoplasm of breast
CPT/HCPCS: 76642; 77062; G0279

== ENCOUNTER → 2023-09-11 11:54 | Outpatient (BNVA) | payer MEDICARE, MEDICAID, SELFPAY | PROVIDERS: PCP Family Medicine; Visit Provider Nurse Practitioner Family | DX: T78.40XA Allergy, unspecified, initial encounter (principal); E11.9 Type 2 diabetes mellitus without complications; R03.0 Elevated blood-pressure reading, without diagnosis of hypertension; E78.5 Hyperlipidemia, unspecified; I10 Essential (primary) hypertension; E55.9 Vitamin D deficiency, unspecified; E03.9 Hypothyroidism, unspecified; T78.40XD Allergy, unspecified, subsequent encounter; J02.0 Streptococcal pharyngitis; E11.42 Type 2 diabetes mellitus with diabetic polyneuropathy; Z79.4 Long term (current) use of insulin; G70.00 Myasthenia gravis without (acute) exacerbation | CPT/HCPCS: 80053; 80061; 83036; 84443; 87486; 87581; 87633 ==

== ENCOUNTER 2023-12-31 19:33 | Emergency (ER) | payer MEDICARE, MEDICAID, SELFPAY ==
[2023-12-31 19:35] VITALS: BP 140/113; PULSE 122; RESP 17; TEMP 37.2; O2SAT 96; BMI 28.1
[2023-12-31 19:47] LABS: Glucose Point of Care 219 mg/dL (70-110)
--- NOTE | 2023-12-31 19:47 | CTR_ITS ---
PROCEDURE INFORMATION: Exam: CT Abdomen And Pelvis With Contrast Exam date and time: 12/31/2023 8:24 PM Age: 78 years old Clinical indication: Abdominal pain; Localized; Right; Prior surgery; Surgery date: 6+ months; Surgery type: Gb. Appy. Hysterectomy. Patient HX: C/O RT sided abd pain; Additional info: Ruq R flank pain TECHNIQUE: Imaging protocol: Computed tomography of the abdomen and pelvis with contrast. Radiation optimization: All CT scans at this facility use at least one of these dose optimization techniques: automated exposure control; mA and/or kV adjustment per patient size (includes targeted exams where dose is matched to clinical indication); or iterative reconstruction. Contrast material: OMNI 350; Contrast volume: 75 ml; Contrast route: INTRAVENOUS (IV); COMPARISON: PT PET WB melanoma INITIAL [id number] 04/01/2023 9:26 AM RADIATION DOSE METRICS: Total DLP (mGy-cm): 828.73 FINDINGS: Liver: Hepatic cyst. Otherwise unremarkable. Gallbladder and bile ducts: Cholecystectomy. Pancreas: Pancreatic atrophy. No main duct dilation. Spleen: Spleen is unremarkable. Adrenal glands: No nodules. Kidneys and ureters: Left renal simple cysts, including multiple parapelvic cysts. Bilateral subcentimeter too small to characterize renal hypodensities. No hydroureteronephrosis. No urinary tract calculi. Stomach and bowel: Fluid-filled mildly distended loops of proximal small bowel in the upper abdomen. Scattered colonic diverticula without CT findings of acute diverticulitis. No discrete dilated loops of bowel or evidence of bowel obstruction. Appendix: Appendectomy. Intraperitoneal space: Unremarkable. No free air. No significant fluid collection. Vasculature: Moderate aortoiliac atherosclerosis. No aortic aneurysm. Lymph nodes: No enlarged lymph nodes. Urinary bladder: Bladder wall thickening, likely related to incomplete distension. Reproductive: Hysterectomy. Bones/joints: No acute fracture. Degenerative changes. Severe right hip osteoarthritis with subchondral sclerotic and cystic change. Scoliotic curvature of the spine. Soft tissues: Tiny fat containing umbilical hernia. CT/CT abdomen pelvis w con* [id number] IMPRESSION: Fluid-filled mildly distended loops of proximal small bowel in the upper abdomen, nonspecific, can be seen with enteritis in the appropriate clinical context. Otherwise, no acute findings. COMMENTS: Consistent with the [employer]'s Incidental Findings Committee white paper (J Am Silvano Radiol 2018): Any incidental renal lesion less than 1 cm or classified as too small to characterize, or any incidental cystic renal lesion characterized as simple-appearing, is likely benign. No follow-up imaging is recommended for these lesions per consensus recommendations based on imaging criteria.
[2023-12-31] MEDS: ondansetron 2 mg/ML SDV 2 mL 4 MG IVP ×2 (20:00→22:46)
[2023-12-31] MEDS: diphenhydrAMINE 50 mg/mL SDV 1mL IVP (20:05)
[2023-12-31] MEDS: methylPREDNISolone sod succ 40 mg/mL INJ IVP (20:11)
[2023-12-31 20:19] VITALS: BP 140/113; PULSE 112; RESP 18; O2SAT 97
[2023-12-31] MEDS: iohexol 350 mg/mL 500 mL Btl (per mL) IV (20:26)
[2023-12-31 21:02] VITALS: PULSE 114; RESP 20; O2SAT 97
[2023-12-31 21:13] LABS: Ketone (Acetest) Serum Negative (Negative)
[2023-12-31 21:21] LABS: Basophils % 0.4 %; Eosinophils # 0.2 10^3/uL (0.0-0.8); Eosinophils % 1.3 %; Hematocrit 42.3 % (36-47); Lymphocytes # 0.5 10^3/uL (0.8-4.8); Lymphocytes % 4.1 %; Mean Corpuscular HGB Conc 33.3 g/dL (30-55); Mean Corpuscular Hemoglobin 32.3 pg (27-33); Mean Platelet Volume 11.2 fL (7.4-10.4); Monocytes # 0.6 10^3/uL (0.2-0.9); Neutrophils # 10.06 10^3/uL (1.8-7.7); Neutrophils % 88.8 %; Nucleated Red Blood Cells % 0 %; Platelet Count 206 10^3/cmm (157-399); Red Blood Count 4.36 10^6/uL (3.85-5.65); Red Cell Distribution Width 12.9 % (12.1-15.1); White Blood Count 11.32 10^3/uL (3.29-11.43)
[2023-12-31 21:39] LABS: Lactic Sepsis W/Reflex 2.6 mmol/L (0.5-2.2)
[2023-12-31 21:40] LABS: Alanine Aminotransferase < 5 U/L (0-33); Alkaline Phosphatase 81 U/L (35-105); Anion Gap 16.3 (5-19); Aspartate Amino Transferase 14 U/L (0-32); Blood Urea Nitrogen 15 mg/dL (8-23); C Reactive Protein 6.5 mg/L (0.0-4.9); Carbon Dioxide 25 mmol/L (22-29); Chloride 99 mmol/L (98-107); Creatinine Clr Calc Pharmacy 54.7926; Globulin 2.6 g/dL (1.3-4.6); Glucose 225 mg/dL (65-115); Lipase 17 U/L (13-60); Osmolality Calculated 290 mOsm/kg (285-295); Potassium 4.3 mmol/L (3.5-5.1); Sodium 136 mmol/L (136-145); Total Bilirubin 0.4 mg/dL (0.15-1.2); Total Protein 6.6 g/dL (6.6-8.7)
[2023-12-31 21:59] LABS: Add Urine Microscopic? YES; Bacteria Urine TRACE /hpf; Bilirubin Urine Neg (Negative); Blood Urine Neg (Negative); Glucose Urine UA 2+ (Normal); Hyaline Casts Urine 0-4 /lpf; Ketones Urine 1+ (Negative); Leukocyte Esterase Urine Negative (Negative); Mucus Urine 1+ /hpf; Nitrate Urine Negative (Negative); Protein Urine Trace (Negative); RBC Urine 0-4 /hpf (0-2); Squamous Epithelial Cell Urine 0-4 /hpf (0-5); Urine Appearance Clear (CLEAR); Urine Color Yellow (Yellow); Urobilinogen Urine Neg (Negative); WBC Urine 0-4 /hpf (0-5); pH Urine 5 (5-7)
[2023-12-31 22:01] VITALS: PULSE 103; RESP 18; O2SAT 98
--- NOTE | 2023-12-31 22:08 | ED_ITS ---
HPI - Abdominal Pain 2 General: Chief Complaint: Nausea/Vomiting/Diarrhea Stated Complaint: N/V/D Time Seen by Provider: 12/31/23 19:37 History of Present Illness: 78-year-old female presenting with right -sided upper abdominal pain and right flank pain, several episodes of vomiting since noon, and diarrhea as well. She has not had fever that she knows of. No respiratory symptoms. No blood in the stool. Associated Symptoms: Reports diarrhea, hematochezia, nausea and vomiting; Denies fever(s) Review of Systems 2 Const: Denies: fever(s) ENMT: Denies: throat pain Card: Denies: chest pain or palpitations Resp: Denies: dyspnea GI: Reports: abdominal pain, nausea, vomiting, diarrhea and hematochezia PFSH ED 2 PFSH: Medical History Cutaneous melanoma Enrolled in chronic care management Essential (primary) hypertension Arteriosclerotic vascular disease Myasthenia gravis Essential tremor Excessive daytime sleepiness Vitamin D deficiency B12 deficiency Acquired hypothyroidism Dyslipidemia Anxiety Type 2 diabetes mellitus Neuropathy Colon polyp Osteoporosis Osteoarthritis of sacroiliac joint Esophageal thickening Positive skin test for tuberculosis Lung nodule LLL 4-5 mm, new nodule in right upper lobe Surgical History History of melanoma excision (11/11/22) Wide local excision of melanoma Hx of hysterectomy, total (~1974) Hx of oral surgery Hx of appendectomy Hx of tonsillectomy History of bunionectomy Hx of arthroscopy of right knee Hx of cholecystectomy Family History Father , age 67 Stroke Cancer lung Lung disease Mother Cancer melanoma, pancreatic CAD (coronary artery disease), Onset Age: 82 multiple stents [place] Family/Other CAD (coronary artery disease) Chronic kidney disease (CKD) Diabetes Lung disease Sister CAD (coronary artery disease) Brother Stroke Brother Melanoma Denies family history of Clotting disorder Dementia Suicide Anesthesia complication Bleeding disorder Social History Smoking and tobacco/nicotine status: never used tobacco/nicotine Second hand smoke exposure: Yes (exposure to heavy tobacco smoke) Alcohol intake: never Substance/Drug Use: never Lives independently: Yes Household members: none Housing: Apartment Current occupational status: retired Current gender identity: Female Kalie/Hindu: [employer] [place] Female Reproductive History: Para: 2 Physical Exam 2 Const: GENERAL APPEARANCE: cooperative and frail appearing (Mildly) HENMT: COMMON NORMALS: normocephalic, atraumatic and Normal external nose present HEAD & SCALP: normocephalic and atraumatic FACE & SINUS: normal facial exam and face symmetric NOSE: Normal external nose present Eye: COMMON NORMALS: Equal, round and reactive pupils present and EOMs intact bilaterally PUPIL: Yes Equal, round and reactive pupils present Neck/C-Spine: GENERAL: Yes trachea midline Chest: CHEST: Yes Symmetrical chest wall rise Resp: COMMON NORMALS: normal respiratory effort, No retractions, No use of accessory muscles and clear to auscultation bilaterally AUSCULTATION: clear to auscultation bilaterally Cardio: COMMON NORMALS: regular rate and regular rhythm RATE: regular rate and tachycardic RHYTHM: regular rhythm GI: COMMON NORMALS: Normal to inspection, nondistended, normoactive bowel sounds present PALPATION: Yes Tenderness to palpation present (GI) (Diffuse right-sided) Extremity: COMMON NORMALS: no pedal edema Neuro: NGUYỄN COMA SCALE: document GCS findings Nguyễn coma scale eye opening: Spontaneous Seneca coma scale verbal response: Orientated Nguyễn coma scale motor response: Obey commands Seneca coma scale total score: 15 S ENSORY EXAM: Yes extremities (intact) Psych: COMMON NORMALS: speech normal SPEECH: Yes normal speech Skin: COMMON NORMALS: no rashes or lesions noted GENERAL SKIN EXAM: no rashes or lesions noted Course 2 Vital Signs: Vital signs: Vital Signs Temperature 98.9 F 12/31/23 19:35 Pulse Rate 104 H 12/31/23 23:00 Respiratory Rate 17 12/31/23 23:00 Blood Pressure 165/89 12/31/23 23:00 Pulse Oximetry 98 12/31/23 23:00 Oxygen Delivery Me thod Room Air 12/31/23 22:01 MDM - Abdominal Pain Medical Decision Making White blood cell count is 11.3, CRP is not significantly elevated. Laboratories otherwise not remarkable. Urinalysis is not remarkable. CT scan shows Fluid- filled mildly distended loops of small bowel in the upper abdomen which are nonspecific but likely enteritis. She is feeling improved after fluid and antiemetics. She will be allowed home. Liquid diet, pain medication, antiemetic, outpatient follow-up. Return for worsening. Lab Data 12/31/23 21:13 12/31/23 20:49 Labs/Radiology: Radiology Impressions Abdomen/Pelvis CT 12/31/23 19:47 IMPRESSION: Fluid-filled mildly distended loops of proximal small bowel in the upper abdomen, nonspecific, can be seen with enteritis in the appropriate clinical context. Otherwise, no acute findings. COMMENTS: Consistent with the [employer]'s Incidental Findings Committee white paper (J Am Silvano Radiol 2018): Any incidental renal lesion less than 1 cm or classified as too small to characterize, or any incidental cystic renal lesion characterized as simple-appearing, is likely benign. No follow-up imaging is recommended for these lesions per consensus recommendations based on imaging criteria. Laboratory Results WBC 11.32 10^3/uL (3.29-11.43) 12/31/23 21:13 RBC 4.36 10^6/uL (3.85-5.65) 12/31/23 21:13 Hgb 14.10 g/dL (11.27-16.99) 12/31/23 21:13 Hct 42.3 % (36-47) 12/31/23 21:13 MCV 97.0 fl (85-98) 12/31/23 21:13 MCH 32.3 pg (27-33) 12/31/23 21:13 MCHC 33.3 g/dL (30-55) 12/31/23 21:13 RDW 12.9 % (12.1-15.1) 12/31/23 21:13 Plt Count 206 10^3/cmm (157-399) 12/31/23 21:13 MPV 11.2 fL (7.4-10.4) H 12/31/23 21:13 Neut % (Auto) 88.8 % 12/31/23 21:13 Lymph % (Auto) 4.1 % 12/31/23 21:13 [place] % (Auto) 5.0 % 12/31/23 21:13 Eos % (Auto) 1.3 % 12/31/23 21:13 Baso % (Auto) 0.4 % 12/31/23 21:13 Neut # (Auto) 10.06 10^3/uL (1.8-7.7) H 12/31/23 21:13 Lymph # (Auto) 0.5 10^3/uL (0.8-4.8) L 12/31/23 21:13 [place] # (Auto) 0.6 10^3/uL (0.2-0.9) 12/31/23 21:13 Eos # (Auto) 0.2 10^3/uL (0.0-0.8) 12/31/23 21:13 Baso # (Auto) 0.0 10^3/uL (0.0-0.1) 12/31/23 21:13 Nucleated RBC % (auto) 0 % 12/31/23 21:13 Nucleated RBCs # 0.0 /100WBC 12/31/23 21:13 Sodium 136 mmol/L (136-145) 12/31/23 20:49 Potassium 4.3 mmol/L (3.5-5.1) 12/31/23 20:49 Chloride 99 mmol/L (98-107) 12/31/23 20:49 Carbon Dioxide 25 mmol/L (22-29) 12/31/23 20:49 Anion Gap 16.3 (5-19) 12/31/23 20:49 BUN 15 mg/dL (8-23) 12/31/23 20:49 Creatinine 0.9 mg/dL (0.5-0.9) 12/31/23 20:49 GFR Calculation Not Reportable 12/31/23 20:49 Glucose 225 mg/dL (65-115) H 12/31/23 20:49 POC Glucose 219 mg/dL (70-110) H 12/31/23 19:42 Calculated Osmolality 290 mOsm/kg (285-295) 12/31/23 20:49 Lactic Acid 2.6 mmol/L (0.5-2.2) H 12/31/23 21:13 Calcium 9.0 mg/dL (8.5-10.5) 12/31/23 20:49 Total Bilirubin 0.4 mg/dL (0.15-1.2) 12/31/23 20:49 AST 14 U/L (0-32) 12/31/23 20:49 ALT < 5 U/L (0-33) 12/31/23 20:49 Alkaline Phosphatase 81 U/L (35-105) 12/31/23 20:49 C-Reactive Protein 6.5 mg/L (0.0-4.9) H 12/31/23 20:49 Total Protein 6.6 g/dL (6.6-8.7) 12/31/23 20:49 Albumin 4.0 g/dL (3.5-5.2) 12/31/23 20:49 Globulin 2.6 g/dL (1.3-4.6) 12/31/23 20:49 Lipase 17 U/L (13-60) 12/31/23 20:49 Urine Color Yellow (Yellow) 12/31/23 21:44 Urine Appearance Clear (CLEAR) 12/31/23 21:44 Urine pH 5 (5-7) 12/31/23 21:44 Ur Specific [place] 1.010 (1.005-1.030) 12/31/23 21:44 Urine Protein Trace (Negative) 12/31/23 21:44 Urine Glucose (UA) 2+ (Normal) H 12/31/23 21:44 Urine Ketones 1+ (Negative) H 12/31/23 21:44 Urine Blood Neg (Negative) 12/31/23 21:44 Urine Nitrate Negative (Negative) 12/31/23 21:44 Urine Bilirubin Neg (Negative) 12/31/23 21:44 Urine Urobilinogen Neg mg/dL (Negative) 12/31/23 21:44 Ur Leukocyte Esterase Negative (Negative) 12/31/23 21:44 Urine RBC 0-4 /hpf (0-2) H 12/31/23 21:44 Urine WBC 0-4 /hpf (0-5) H 12/31/23 21:44 Ur Squamous Epith Cells 0-4 /hpf (0-5) H 12/31/23 21:44 Amorphous Sediment Not Reportable 12/31/23 21:44 Urine Bacteria Trace /hpf (NONE) 12/31/23 21:44 Hyaline Casts 0-4 /lpf H 12/31/23 21:44 Urine Mucus 1+ /hpf 12/31/23 21:44 Serum Ketones Negative (Negative) 12/31/23 20:49 All radiology interpretation(s) finalized by discharge Discharge Plan Discharge Patient Disposition: Home Clinical Impression: Enteritis Condition: Stable Prescriptions: New metronidazole 500 mg tablet 500 mg PO BID 7 Days Qty: 14 0RF hydrocodone-acetaminophen 5-325 mg tablet 1 tab PO Q8H PRN (Reason: pain) Qty: 7 0RF ondansetron 4 mg tablet,disintegrating 4 mg PO Q6H PRN (Reason: nausea and vomiting) Qty: 14 0RF No Action nitroglycerin [Nitrostat] 0.4 mg tablet, sublingual 0.4 mg SUBLINGUAL Q5M PRN (Reason: Chest Pain) famotidine [Pepcid AC] 20 mg tablet 20 mg PO BID diphenhydramine HCl [Benadryl Allergy] 25 mg tablet 25 mg PO TID PRN ascorbate calcium (vitamin C) 500 mg tablet 500 mg PO DAILY cyanocobalamin (vitamin B-12) 1,000 mcg/mL solution See Rx Instructions .ROUTE .COMPLEX Qty: 3 2RF Rx Instructions: inject as directed once monthly cholecalciferol (vitamin D3) 50 mcg (2,000 unit) capsule 50 mcg PO DAILY 90 Days Qty: 90 1RF glipizide 5 mg tablet 5 mg PO DAILY 90 Days Qty: 90 1RF azelastine 205.5 mcg (0.15 %) spray,non-aerosol 2 spray intranasal BID Qty: 30 0RF Rx Instructions: administer into each nostril cetirizine [Zyrtec] 10 mg tablet 10 mg PO DAILY 90 Days Qty: 90 1RF (DME) True Metrix Glucose Test Strip Strip See Rx Instructions .Route Qty: 50 11RF Rx Instructions: testing three times daily Levemir FlexPen 100 unit/mL (3 mL) insulin pen See Rx Instructions .ROUTE .COMPLEX Qty: 18 2RF Dose Instruction: INJECT 30 units SUBCUTANEOUSLY TWICE DAILY Rx Instructions: INJECT 30 units SUBCUTANEOUSLY TWICE DAILY alprazolam [Xanax] 0.25 mg tablet 0.125 mg PO TID PRN (Reason: anxiety) Qty: 7 0RF levothyroxine [Synthroid] 100 mcg tablet See Rx Instructions .ROUTE .COMPLEX Qty: 90 1RF Dose Instruction: TAKE ONE TABLET BY MOUTH DAILY Rx Instructions: TAKE ONE TABLET BY MOUTH DAILY azithromycin [Zithromax] 250 mg tablet See Rx Instructions PO .COMPLEX Qty: 6 0RF Rx Instructions: For 250 mg dose pack: take 500 mg today (day 1), then 250 mg for 4 days (days 2-5) PO (DME) pen needle, diabetic [UltiCare Pen Needle] 32 gauge x 5/32 needle See Rx Instructions .ROUTE .COMPLEX Qty: 100 1RF Dose Instruction: USE DIRECTED Rx Instructions: USE with insulin Ventolin HFA 90 mcg/actuation HFA aerosol inhaler 2 puff INHALATION Q6H PRN (Reason: Shortness Of Breath) lisinopril 5 mg tablet 10 mg PO DAILY Qty: 0 0RF Discharge Orders: Discharge ED (Routine); Ordered 12/31/23 Ordered By: Stevie Contreras Referrals: Lynette Smalls MD [Primary Care Provider] - 1-3 days Patient Instructions: Enteritis (ED), Opioid Safety, Pain Management Activity Restrictions/Additional Instructions: Follow a liquid diet for the next 24 hours. If no vomiting, and decreased pain, you may start to add solid food back to your diet at that point. Take the nausea medication prescribed every 4 hours while awake for the first 48 hours scheduled, then as needed. Pain medication as directed. Return for worsening pain despite treatment, fever despite antibiotics, vomiting liquids despite treatment, any other concerning symptoms. See your doctor this week. Coding Level of Care Code ED Suspect Artist for Marcela Orona
[2023-12-31] MEDS: metroNIDAZOLE 500 MG Tablet PO (22:45)
[2023-12-31] MEDS: ketorolac 30 mg/mL INJ 15 MG IVP (22:46)
[2023-12-31 23:00] VITALS: BP 165/89; PULSE 104; RESP 17; O2SAT 98
[2023-12-31 23:07] LABS: Reflex Lactate Order REFLEX LACTIC ORDERD
[2024-01-01] VITALS (8 sets, daily range): BP systolic 146–165; BP diastolic 74–89; PULSE 79–113; RESP 15–26; O2SAT 95–98
[2024-01-01 00:27] LABS: Glucose Point of Care 257 mg/dL (70-110)
[2024-01-01] MEDS: acetaminophen 500 mg Tablet 1000 MG PO (00:51)
[2024-01-01] MEDS: insulin glargine 100 units/1 mL 30 UNIT SUBCUT (01:35)
[2024-01-01 02:55] LABS: Glucose Point of Care 246 mg/dL (70-110)
--- NOTE | 2024-01-01 04:21 | PC.NURSE ---
pt activated call light at 04:15. pt stated that she is missing aprox $150 out of her purse. $20 in ones and the rest in 20 dollar bills. Pt stated she was only away from her purse during CT, notified security.
== END 2024-01-01 06:44 | disposition home or self-care (01) ==
PROVIDERS: Emergency Provider Emergency Medicine; PCP Family Medicine
DX: K52.9 Noninfective gastroenteritis and colitis, unspecified (principal); Z79.4 Long term (current) use of insulin; Z79.84 Long term (current) use of oral hypoglycemic drugs; Z77.22 Contact with and (suspected) exposure to environmental tobacco smoke (acute) (chronic); I10 Essential (primary) hypertension; E78.5 Hyperlipidemia, unspecified; E11.42 Type 2 diabetes mellitus with diabetic polyneuropathy
CPT/HCPCS: 36415; 36416; 74177; 80053; 81001; 82009; 82962; 83605; 83690; 85025; 86140; 87040; 96361; 96372; 96374; 96375; 96376; 99285; J1200; J1815; J1885; J2405; J2920; J7120; Q9967

== ENCOUNTER → 2024-01-25 11:08 | Outpatient (BNVA) | payer MEDICARE, MEDICAID, SELFPAY | PROVIDERS: PCP Family Medicine; Visit Provider Family Medicine | DX: E11.42 Type 2 diabetes mellitus with diabetic polyneuropathy (principal); I10 Essential (primary) hypertension; Z79.4 Long term (current) use of insulin; E03.9 Hypothyroidism, unspecified; E53.8 Deficiency of other specified B group vitamins; E55.9 Vitamin D deficiency, unspecified; K21.9 Gastro-esophageal reflux disease without esophagitis | CPT/HCPCS: 80053; 80061; 82306; 82607; 83036; 84443; 85025 ==

== ENCOUNTER → 2024-03-06 16:11 | Outpatient (BNVA) | payer MEDICARE, MEDICAID, SELFPAY | PROVIDERS: PCP Family Medicine; Visit Provider Family Medicine | DX: L98.419 Non-pressure chronic ulcer of buttock with unspecified severity; M25.551 Pain in right hip; G70.00 Myasthenia gravis without (acute) exacerbation; R19.7 Diarrhea, unspecified | CPT/HCPCS: 86618; 86666; 86757 ==

== ENCOUNTER → 2024-03-08 12:24 | Outpatient (BNVA) | payer MEDICARE, MEDICAID, SELFPAY | PROVIDERS: PCP Family Medicine; Visit Provider Family Medicine | DX: K52.9 Noninfective gastroenteritis and colitis, unspecified (principal) | CPT/HCPCS: 82274; 87493 ==

== ENCOUNTER 2024-03-09 07:25 | Emergency (ER) | payer MEDICARE, MEDICAID, SELFPAY ==
[2024-03-09 07:26] VITALS: BP 136/70; PULSE 81; RESP 15; TEMP 36.8; O2SAT 98; BMI 27.3
--- NOTE | 2024-03-09 07:43 | ED_ITS ---
HPI - Skin/Abscess/Foreign Bdy 2 General: Chief complaint: Skin/Abscess/Foreign Body Stated complaint: RASH Time Seen by Provider: 03/09/24 07:28 Source: patient Mode of arrival: ambulatory History of Present Illness: 78-year-old female who presents to the e mergency room complaining of a sore on her coccyx area. She states it began as a tick bite a few weeks ago. She was seen by her primary care doctor for that along with chronic diarrhea it has been going on for couple of weeks. C. difficile was done which was reviewed in the chart which was negative tick panel is still pending. She has not had any fever sweats or chills. No hematochezia or melena. MD complaint: insect bite/sting Onset (ago): week(s) Associated symptoms: Deny arthralgias, chills, cough, fever(s), itching, myalgias, nausea, rigidity, short of breath or vomiting Review of Systems 2 Const: Reports: fatigue and malaise; Denies: fever(s) or chills Card: Denies: chest pain Resp: Denies: dyspnea GI: Reports: diarrhea; Denies: abdominal pain, nausea or vomiting : Denies: dysuria, urinary frequency or urinary urgency Musc: Denies: neck pain or back pain Skin/Breast: Reports: lesions PFSH ED 2 PFSH: Medical History Cutaneous melanoma Enrolled in chronic care management Essential (primary) hypertension Arteriosclerotic vascular disease Myasthenia gravis Essential tremor Excessive daytime sleepiness Vitamin D deficiency B12 deficiency Acquired hypothyroidism Dyslipidemia Anxiety Neuropathy Colon polyp Osteoporosis Osteoarthritis of sacroiliac joint Esophageal thickening Positive skin test for tuberculosis Lung nodule LLL 4-5 mm, new nodule in right upper lobe Surgical History History of melanoma excision (11/11/22) Wide local excision of melanoma Hx of hysterectomy, total (~1974) Hx of oral surgery Hx of appendectomy Hx of tonsillectomy History of bunionectomy Hx of arthroscopy of right knee Hx of cholecystectomy Family History Father , age 67 Stroke Cancer lung Lung disease Mother Cancer melanoma, pancreatic CAD (coronary artery disease), Onset Age: 82 multiple stents [place] Family/Other CAD (coronary artery disease) Chronic kidney disease (CKD) Diabetes Lung disease Sister CAD (coronary artery disease) Brother Stroke Brother Melanoma Denies family history of Clotting disorder Dementia Suicide Anesthesia complication Bleeding disorder Social History Smoking and tobacco/nicotine status: never used tobacco/nicotine Second hand smoke exposure: Yes (exposure to heavy tobacco smoke) Alcohol intake: never Substance/Drug Use: never Lives independently: Yes Household members: none Housing: Apartment Current occupational status: retired Current gender identity: Female Kalie/Oriental Orthodox: [employer] [place] Female Reproductive History: Para: 2 Physical Exam 2 Const: COMMON NORMALS: no acute distress GENERAL APPEARANCE: cooperative and comfortable ORIENTATION/CONSCIOUSNESS: Yes awake, Yes oriented to person, Yes oriented to place and Yes oriented to time HENMT: COMMON NORMALS: normocephalic, atraumatic and hearing grossly normal bilaterally HEAD & SCALP: normocephalic and atraumatic Resp: COMMON NORMALS: normal respiratory effort, No retractions, No use of accessory muscles and clear to auscultation bilaterally AUSCULTATION: clear to auscultation bilaterally Cardio: COMMON NORMALS: regular rate, regular rhythm and No murmurs present (Cardio) RATE: regular rate RHYTHM: regular rhythm GI: COMMON NORMALS: Soft to palpation and No hepatosplenomegaly present A USCULTATION: Yes normoactive bowel sounds PALPATION: Yes Soft to palpation, No Tenderness to palpation present (GI), No Guarding due to palpation present (GI) and Yes No hepatosplenomegaly present Extremity: COMMON NORMALS: normal to inspection, capillary refill normal, no clubbing, cyanosis or edema, no calf tenderness and no pedal edema Neuro: SENSORIUM/ORIENTATION: Yes oriented to person, Yes oriented to place and Yes oriented to time Skin: OTHER: Irregular approximately 2 to 2-1/2 cm stage II lesion over the sacrum. Adjacent punctate redness no induration no purulent drainage base of the wound has mucousy eschar in place. No fluctuance no swelling Course 2 Vital Signs: Vital signs: Vital Signs Temperature 98.2 F 03/09/24 07:26 Pulse Rate 68 03/09/24 10:56 Respiratory Rate 15 03/09/24 07:26 Blood Pressure 124/67 03/09/24 10:56 Pulse Oximetry 97 03/09/24 10:56 Oxygen Delivery Me thod Room Air 03/09/24 07:26 MDM - Skin/Abscess/Foreign Bdy Medicial Decision Making Decubitus ulcer proximally dime size very regular appears to be stage II. There is a little bit of surrounding redness but no significant induration no palpable fluctuant area cannot express any drainage. Will start on topical antibiotic ointment. Hold off on starting any oral antibiotics until stool cultures are done. Will refer to wound care. Medical Records I reviewed the patient's medical records. Lab Data I reviewed the patient's lab results. 03/09/24 08:45 03/09/24 08:45 Radiology Impressions Chest X-Ray 03/09/24 07:44 IMPRESSION: No acute findings. Laboratory Results WBC 6.25 10^3/uL (3.29-11.43) 03/09/24 08:45 RBC 4.16 10^6/uL (3.85-5.65) 03/09/24 08:45 Hgb 13.40 g/dL (11.27-16.99) 03/09/24 08:45 Hct 40.6 % (36-47) 03/09/24 08:45 MCV 97.6 fl (85-98) 03/09/24 08:45 MCH 32.2 pg (27-33) 03/09/24 08:45 MCHC 33.0 g/dL (30-55) 03/09/24 08:45 RDW 13.2 % (12.1-15.1) 03/09/24 08:45 Plt Count 198 10^3/cmm (157-399) 03/09/24 08:45 MPV 11.4 fL (7.4-10.4) H 03/09/24 08:45 Neut % (Auto) 65.8 % 03/09/24 08:45 Lymph % (Auto) 22.9 % 03/09/24 08:45 [place] % (Auto) 6.7 % 03/09/24 08:45 Eos % (Auto) 3.4 % 03/09/24 08:45 Baso % (Auto) 1.0 % 03/09/24 08:45 Neut # (Auto) 4.12 10^3/uL (1.8-7.7) 03/09/24 08:45 Lymph # (Auto) 1.4 10^3/uL (0.8-4.8) 03/09/24 08:45 [place] # (Auto) 0.4 10^3/uL (0.2-0.9) 03/09/24 08:45 Eos # (Auto) 0.2 10^3/uL (0.0-0.8) 03/09/24 08:45 Baso # (Auto) 0.1 10^3/uL (0.0-0.1) 03/09/24 08:45 Nucleated RBC % (auto) 0 % 03/09/24 08:45 Nucleated RBCs # 0.0 /100WBC 03/09/24 08:45 Sodium 140 mmol/L (136-145) 03/09/24 08:45 Potassium 4.0 mmol/L (3.5-5.1) 03/09/24 08:45 Chloride 105 mmol/L (98-107) 03/09/24 08:45 Carbon Dioxide 25 mmol/L (22-29) 03/09/24 08:45 Anion Gap 14.0 (5-19) 03/09/24 08:45 BUN 12 mg/dL (8-23) 03/09/24 08:45 Creatinine 0.9 mg/dL (0.5-0.9) 03/09/24 08:45 GFR Calculation Not Reportable 03/09/24 08:45 Glucose 132 mg/dL (65-115) H 03/09/24 08:45 Calculated Osmolality 292 mOsm/kg (285-295) 03/09/24 08:45 Calcium 8.6 mg/dL (8.5-10.5) 03/09/24 08:45 Total Bilirubin 0.4 mg/dL (0.15-1.2) 03/09/24 08:45 AST 16 U/L (0-32) 03/09/24 08:45 ALT 12 U/L (0-33) 03/09/24 08:45 Alkaline Phosphatase 67 U/L (35-105) 03/09/24 08:45 Total Protein 7.0 g/dL (6.6-8.7) 03/09/24 08:45 Albumin 3.9 g/dL (3.5-5.2) 03/09/24 08:45 Globulin 3.1 g/dL (1.3-4.6) 03/09/24 08:45 Urine Color Yellow (Yellow) 03/09/24 09:16 Urine Appearance Clear (CLEAR) 03/09/24 09:16 Urine pH 6 (5-7) 03/09/24 09:16 Ur Specific [place] 1.020 (1.005-1.030) 03/09/24 09:16 Urine Protein Neg (Negative) 03/09/24 09:16 Urine Glucose (UA) Norm (Normal) 03/09/24 09:16 Urine Ketones 1+ (Negative) H 03/09/24 09:16 Urine Blood Neg (Negative) 03/09/24 09:16 Urine Nitrate Negative (Negative) 03/09/24 09:16 Urine Bilirubin Neg (Negative) 03/09/24 09:16 Urine Urobilinogen Norm mg/dL (Negative) 03/09/24 09:16 Ur Leukocyte Esterase Negative (Negative) 03/09/24 09:16 All radiology interpretation(s) finalized by discharge Discharge Plan Discharge Patient Disposition: Home Clinical Impression: Decubitus ulcer of sacral region, Chronic diarrhea Condition: Stable Prescriptions: New mupirocin 2 % ointment 1 applic topical BID Qty: 50 0RF No Action diphenhydramine HCl [Benadryl Allergy] 25 mg tablet 25 mg PO TID PRN ascorbate calcium (vitamin C) 500 mg tablet 500 mg PO DAILY cholecalciferol (vitamin D3) 50 mcg (2,000 unit) capsule 50 mcg PO DAILY 90 Days Qty: 90 1RF glipizide 5 mg tablet 5 mg PO DAILY 90 Days Qty: 90 1RF MediHoney (honey) 80 % gel 1 applic topical BID Qty: 15 0RF azelastine 205.5 mcg (0.15 %) spray,non-aerosol 2 spray intranasal BID Qty: 30 0RF Rx Instructions: administer into each nostril famotidine 40 mg tablet 40 mg PO BID Qty: 60 0RF (DME) True Metrix Glucose Test Strip Strip See Rx Instructions .Route Qty: 50 11RF Rx Instructions: testing three times daily alprazolam [Xanax] 0.25 mg tablet 0.125 mg PO TID PRN (Reason: anxiety) Qty: 7 0RF nystatin 100,000 unit/mL suspension 5 ml buccal TID Qty: 60 0RF Rx Instructions: swish and swallow mecobalamin (vitamin B12) 1,000 mcg tablet,disintegrating 1,000 mcg sublingual DAILY Qty: 100 0RF Rx Instructions: place tablet under tongue and allow to dissolve for at least30 secs before swallowing nitroglycerin [Nitrostat] 0.4 mg tablet, sublingual 0.4 mg SUBLINGUAL Q5M PRN (Reason: Chest Pain) Qty: 20 4RF levothyroxine [Synthroid] 100 mcg tablet See Rx Instructions .ROUTE .COMPLEX Qty: 90 1RF Dose Instruction: TAKE ONE TABLET BY MOUTH DAILY Rx Instructions: TAKE ONE TABLET BY MOUTH DAILY loratadine [Allergy Relief (loratadine)] 10 mg tablet 10 mg PO DAILY PRN (Reason: allergy symptoms) 90 Days Qty: 90 1RF (DME) pen needle, diabetic [UltiCare Pen Needle] 32 gauge x 5/32 needle See Rx Instructions .ROUTE .COMPLEX Qty: 100 1RF Dose Instruction: USE DIRECTED Rx Instructions: USE with insulin insulin glargine [Lantus Solostar U-100 Insulin] 100 unit/mL (3 mL) insulin pen 30 unit SUBCUT BID Qty: 15 0RF Ventolin HFA 90 mcg/actuation HFA aerosol inhaler 2 puff INHALATION Q6H PRN (Reason: Shortness Of Breath) lisinopril 5 mg tablet 10 mg PO DAILY Qty: 0 0RF hydrocodone-acetaminophen 5-325 mg tablet 1 tab PO Q8H PRN (Reason: pain) Qty: 7 0RF ondansetron 4 mg tablet,disintegrating 4 mg PO Q6H PRN (Reason: nausea and vomiting) Qty: 14 0RF Discharge Orders: Discharge ED (Routine); Ordered 03/09/24 Ordered By: Jose Phelan Referrals: Lynette Smalls MD [Primary Care Provider] - Discharge Diet: Usual diet Discharge Activity: Resume usual activity Patient Instructions: Opioid Safety, Pain Management Activity Restrictions/Additional Instructions: Thank you for choosing [facility] for your healthcare needs today. It is very important that you follow up as instructed or that you return to the Emergency Department should you have concerns or if your condition changes or worsens in any way. You were seen today with complaints of chronic diarrhea and a sore over the sacrum. Your laboratory test did not show any significant abnormalities. Recommend applying topical antibiotic ointment and protect the sacral ulcer with DuoDERM. You had mentioned that your primary care doctor had made arrangements for home health care they can assist you with wound care going forward. You should continue to follow-up with your primary care doctor. The C. difficile that your primary care doctor did yesterday was negative. The tick panel is pending and we did other stool samples today follow-up with your doctor regarding the results of those. We do not recommend antibiotics at this time until the stool samples are completed. Coding Level of Care Code ED Color Mixer for Marcela Orona
--- NOTE | 2024-03-09 07:44 | XRR_ITS ---
PROCEDURE INFORMATION: Exam: XR Chest Exam date and time: 03/09/2024 7:51 AM Age: 78 years old Clinical indication: Dyspnea TECHNIQUE: Imaging protocol: Radiologic exam of the chest. Views: 1 view. COMPARISON: CR XR chest 1V portable [id number] 12/30/2021 1:49 AM FINDINGS: Lungs: Unremarkable. No consolidation. Pleural spaces: Unremarkable. No pleural effusion. No pneumothorax. Heart/Mediastinum: Unremarkable. No cardiomegaly. Bones/joints: Unremarkable. XR/XR chest 1V portable [id number] IMPRESSION: No acute findings.
--- NOTE | 2024-03-09 07:44 | ECG_ITS ---
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 Measurements Intervals [place] Rate: 72 P: 52 KS: 160 QRS: 30 QRSD: 86 T: 29 QT: 394 QTc: 433 Interpretive Statements SINUS RHYTHM WITH SINUS ARRHYTHMIA Compared to ECG 12/30/2021 05:01:46 No significant changes Electronically Signed On 03-09-2024 9:28:02 CDT by Wilfredo Franklin M.D. [id number]
[2024-03-09 08:54] LABS: Basophils # 0.1 10^3/uL (0.0-0.1); Eosinophils # 0.2 10^3/uL (0.0-0.8); Eosinophils % 3.4 %; Hematocrit 40.6 % (36-47); Lymphocytes # 1.4 10^3/uL (0.8-4.8); Lymphocytes % 22.9 %; Mean Corpuscular Hemoglobin 32.2 pg (27-33); Mean Corpuscular Volume 97.6 fl (85-98); Mean Platelet Volume 11.4 fL (7.4-10.4); Monocytes # 0.4 10^3/uL (0.2-0.9); Monocytes % 6.7 %; Neutrophils # 4.12 10^3/uL (1.8-7.7); Neutrophils % 65.8 %; Nucleated Red Blood Cells % 0 %; Platelet Count 198 10^3/cmm (157-399); Red Blood Count 4.16 10^6/uL (3.85-5.65); Red Cell Distribution Width 13.2 % (12.1-15.1); White Blood Count 6.25 10^3/uL (3.29-11.43)
[2024-03-09 09:02] VITALS: BP 128/82; PULSE 76; O2SAT 98
[2024-03-09 09:15] LABS: Alanine Aminotransferase 12 U/L (0-33); Albumin Level 3.9 g/dL (3.5-5.2); Alkaline Phosphatase 67 U/L (35-105); Aspartate Amino Transferase 16 U/L (0-32); Blood Urea Nitrogen 12 mg/dL (8-23); Calcium 8.6 mg/dL (8.5-10.5); Carbon Dioxide 25 mmol/L (22-29); Chloride 105 mmol/L (98-107); Creatinine Clr Calc Pharmacy 54.0786; Globulin 3.1 g/dL (1.3-4.6); Glucose 132 mg/dL (65-115); Osmolality Calculated 292 mOsm/kg (285-295); Sodium 140 mmol/L (136-145); Total Bilirubin 0.4 mg/dL (0.15-1.2)
[2024-03-09 09:22] LABS: Add Urine Microscopic? NO; Charge for UA Resulting for Rev
[2024-03-09 09:42] LABS: Bilirubin Urine Neg (Negative); Blood Urine Neg (Negative); Glucose Urine UA Norm (Normal); Ketones Urine 1+ (Negative); Leukocyte Esterase Urine Negative (Negative); Nitrate Urine Negative (Negative); Protein Urine Neg (Negative); Urine Appearance Clear (CLEAR); Urine Color Yellow (Yellow); Urobilinogen Urine Norm (Negative); pH Urine 6 (5-7)
[2024-03-09 10:16] VITALS: BP 124/67; PULSE 68; O2SAT 97
[2024-03-09 10:56] VITALS: BP 124/67; PULSE 68; O2SAT 97
--- NOTE | 2024-03-11 07:32 | DCPLANNER ---
referral message sent to wound care for er f/u
== END 2024-03-09 10:57 | disposition home or self-care (01) ==
PROVIDERS: Emergency Provider Family Medicine; PCP Family Medicine
DX: L89.152 Pressure ulcer of sacral region, stage 2 (principal); K52.9 Noninfective gastroenteritis and colitis, unspecified; Z79.84 Long term (current) use of oral hypoglycemic drugs; Z79.4 Long term (current) use of insulin; Z77.22 Contact with and (suspected) exposure to environmental tobacco smoke (acute) (chronic); I10 Essential (primary) hypertension; E78.5 Hyperlipidemia, unspecified
CPT/HCPCS: 36415; 71045; 80053; 81003; 85025; 93005; 99285

== ENCOUNTER → 2024-03-18 13:03 | Outpatient (BNVA) | payer MEDICARE, MEDICAID, SELFPAY | PROVIDERS: PCP Family Medicine; Visit Provider Nurse Practitioner Family | DX: I96 Gangrene, not elsewhere classified (principal); L89.153 Pressure ulcer of sacral region, stage 3; S31.811D Laceration without foreign body of right buttock, subsequent encounter; X58.XXXD Exposure to other specified factors, subsequent encounter | CPT/HCPCS: 97597; 99213 ==

== ENCOUNTER → 2024-03-25 13:53 | Outpatient (BNVA) | payer MEDICARE, MEDICAID, SELFPAY | PROVIDERS: PCP Family Medicine; Visit Provider Nurse Practitioner Family | DX: I96 Gangrene, not elsewhere classified (principal); L89.153 Pressure ulcer of sacral region, stage 3; S31.811D Laceration without foreign body of right buttock, subsequent encounter; X58.XXXD Exposure to other specified factors, subsequent encounter | CPT/HCPCS: 97597 ==

== ENCOUNTER → 2024-04-01 14:20 | Outpatient (BNVA) | payer MEDICARE, MEDICAID, SELFPAY | PROVIDERS: PCP Family Medicine; Visit Provider Nurse Practitioner Family | DX: L89.153 Pressure ulcer of sacral region, stage 3 (principal); L98.411 Non-pressure chronic ulcer of buttock limited to breakdown of skin | CPT/HCPCS: 97597 ==

== ENCOUNTER → 2024-04-09 09:40 | Outpatient (BNVA) | payer MEDICARE, MEDICAID, SELFPAY | PROVIDERS: PCP Family Medicine; Visit Provider Thoracic Surgery (Cardiothoracic Vascular Surgery) | DX: Z09 Encounter for follow-up examination after completed treatment for conditions other than malignant neoplasm (principal); Z87.2 Personal history of diseases of the skin and subcutaneous tissue | CPT/HCPCS: 99212 ==

== ENCOUNTER → 2024-06-24 14:37 | Outpatient (BNVA) | payer MEDICARE, MEDICAID, SELFPAY | PROVIDERS: PCP Family Medicine; Visit Provider Family Medicine | DX: R05.9 Cough, unspecified (principal) | CPT/HCPCS: 87400; 87426 ==

== ENCOUNTER 2024-08-26 17:57 | Emergency (ER) | payer MEDICARE, MEDICAID, SELFPAY ==
[2024-08-26 17:58] VITALS: BP 140/87; PULSE 105; RESP 19; TEMP 36.9; O2SAT 99; BMI 26.2
--- NOTE | 2024-08-26 18:03 | XRR_ITS ---
PROCEDURE INFORMATION: Exam: XR Chest Exam date and time: 08/26/2024 6:22 PM Age: 78 years old Clinical indication: Dyspnea; Additional info: Shortness of breath TECHNIQUE: Imaging protocol: Radiologic exam of the chest. Views: 1 view. COMPARISON: CR XR chest 1V portable [id number] 03/09/2024 7:51 AM FINDINGS: Limitations: Patient rotation Lungs: Mild chronic interstitial prominence. No pulmonary consolidation. Pleural spaces: No pleural effusion or pneumothorax. Heart/Mediastinum: Heart size is within normal limits. Vasculature: Atherosclerotic calcifications of the aorta are noted. Bones/joints: No acute osseous abnormalities are seen. XR/XR chest 1V portable [id number] IMPRESSION: No acute cardiopulmonary disease.
--- NOTE | 2024-08-26 18:03 | CTR_ITS ---
PROCEDURE INFORMATION: Exam: CTA Chest With Contrast Exam date and time: 08/26/2024 7:27 PM Age: 78 years old Clinical indication: Other: Hypoxia; Additional info: Hypoxemia, elevated d-dimer TECHNIQUE: Imaging protocol: Computed tomographic angiography of the chest with contrast. Exam focused on the arteries. 3D rendering (Not supervised by radiologist): MIP and/or 3D reconstructed images were created by the technologist. Radiation optimization: All CT scans at this facility use at least one of these dose optimization techniques: automated exposure control; mA and/or kV adjustment per patient size (includes targeted exams where dose is matched to clinical indication); or iterative reconstruction. Contrast material: OMNIPAQUE 350; Contrast volume: 100 ml; Contrast route: INTRAVENOUS (IV); COMPARISON: CT angio chest PE protcl [id number] 12/19/2019 5:23 AM RADIATION DOSE METRICS: Total DLP (mGy-cm): 381.28 FINDINGS: Pulmonary arteries: The pulmonary arteries are well visualized to the distal segmental level and subsegmental level in some cases. Breathing artifact mildly limits evaluation of the pulmonary arteries in the lung bases. No filling defects are identified to suggest pulmonary artery embolism. The main pulmonary artery is normal in size. Aorta: Atherosclerotic calcifications of the aorta are present. No aneurysm is identified. Lungs: Scattered areas of subpleural fibrosis or atelectasis. No pulmonary consolidation or pulmonary infarct. Right lower lobe calcified granuloma. Pleural spaces: No pleural effusion or pneumothorax. Heart: Heart size is within normal limits. There is no pericardial effusion or pericardial thickening. Coronary arteries: Moderate coronary artery calcification. Esophagus: Mild nonspecific thickening of the distal esophagus. Lymph nodes: No enlarged lymph nodes are identified. Bones/joints: No acute osseous abnormalities are seen. Soft tissues: The soft tissues are within normal limits. CT/CT angio chest PE protcl [id number] IMPRESSION: 1. No evidence of pulmonary embolism. 2. Mild nonspecific thickening of the distal esophagus. Correlate with possible esophagitis. 3. Scattered areas of subpleural atelectasis and/or fibrotic change.
--- NOTE | 2024-08-26 18:04 | ECG_ITS ---
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 Measurements Intervals [place] Rate: 103 P: 62 OR: 160 QRS: 51 QRSD: 90 T: 24 QT: 341 QTc: 447 Interpretive Statements SINUS TACHYCARDIA NONSPECIFIC T-WAVE ABNORMALITY ABNORMAL RHYTHM ECG Compared to ECG 03/09/2024 08:04:09 T-wave abnormality now present Sinus rhythm no longer present Sinus arrhythmia no longer present Electronically Signed On 08-26-2024 19:19:51 CLIENT REPORTING ASSOCIATE by Homer Villalobos M.D. [email or web address]
--- NOTE | 2024-08-26 18:12 | ED_ITS ---
HPI - Chest Pain 2 General: Chief Complaint: Chest Pain Stated Complaint: cp Time Seen by Provider: 08/26/24 17:57 History of Present Illness: 78-year-old female who presents emergenc y room by ambulance with concern for an elevated troponin. She had labs checked in clinic. Her troponin was 11. She had some chest pain a couple days ago. She been having symptoms for a few days. She had a low blood sugar at 1 point. Related Data Home Medications Medication Instructions Recorded Confirmed ascorbate calcium (vitamin C) 500 500 mg PO DAILY 01/03/22 08/26/24 mg tablet melatonin 3 mg tablet 3 mg PO DAILY insomnia 07/31/24 08/26/24 sennosides 8.6 mg-docusate sodium 1 tab-cap PO BID PRN constipation 07/31/24 08/26/24 50 mg tablet Previous Rx's Medication Instructions Recorded lisinopril 5 mg tablet 10 mg (2 x 5 mg) PO DAILY #0 tabs 04/11/21 cholecalciferol (vitamin D3) 50 50 mcg PO DAILY 90 days #90 caps 05/24/23 mcg (2,000 unit) capsule mecobalamin (vitamin B12) 1,000 1,000 mcg sublingual DAILY #100 01/15/24 mcg disintegrating tabs tablet,sublingual loratadine 10 mg tablet (Allergy 10 mg PO DAILY PRN allergy 01/31/24 Relief (loratadine)) symptoms 90 days #90 tabs nitroglycerin 0.4 mg sublingual 0.4 mg sublingual Q5M PRN Chest 01/31/24 tablet (Nitrostat) Pain #20 tabs levothyroxine 100 mcg tablet See Rx Instructions .Route 04/18/24 (Synthroid) .COMPLEX #90 tabs fluticasone propionate 50 2 spray intranasal DAILY #16 grams 04/19/24 mcg/actuation nasal spray,suspension albuterol sulfate 90 mcg/actuation 2 puff inhalation Q6H PRN 06/24/24 aerosol inhaler (Ventolin HFA) Shortness Of Breath #18 grams glipizide 5 mg tablet See Rx Instructions .Route 06/26/24 .COMPLEX #90 tabs blood sugar diagnostic (True #100 ea 07/04/24 Metrix Glucose Test Strip) famotidine 40 mg tablet 40 mg PO BID #60 tabs 07/04/24 insulin glargine 100 unit/mL (3 See Rx Instructions .Route 07/04/24 mL) subcutaneous pen (Lantus .COMPLEX #15 mL Solostar U-100 Insulin) pen needle, diabetic 32 gauge x #100 ea 07/04/24 (UltiCare Pen Needle) Allergies Allergy/AdvReac Type Severity Reaction Status Date / Time codeine Allergy Severe headache, Verified 08/26/24 10:12 seizures, tremors iodine Allergy Severe throat Verified 08/26/24 10:12 closes meperidine Allergy Severe heart Verified 08/26/24 10:12 attack pentazocine Allergy Severe passing out Verified 08/26/24 10:12 pyridostigmine Allergy Severe shock Verified 08/26/24 10:12 shellfish derived Allergy Severe throat Verified 08/26/24 10:12 closes doxycycline Allergy Intermediate ALGY-Hives Verified 08/26/24 10:12 metformin Allergy Intermediate diarrhea Verified 08/26/24 10:12 nitrofurantoin Allergy Intermediate ALGY-Rash Verified 08/26/24 10:12 [From Macrobid] pantoprazole Allergy Intermediate diarrhea, Verified 08/26/24 10:12 abdominal pain, double vision, muscle weakness atorvastatin [From Lipitor] Allergy Unknown Unknown Verified 08/26/24 10:12 ciprofloxacin [From Cipro] Allergy Unknown Unknown Verified 08/26/24 10:12 Estrogens Allergy Unknown Unknown Verified 08/26/24 10:12 fluticasone Allergy Unknown Unknown Verified 08/26/24 10:12 [From Advair Diskus] morphine Allergy Unknown Unknown Verified 08/26/24 10:12 salmeterol Allergy Unknown Unknown Verified 08/26/24 10:12 [From Advair Diskus] Penicillins Allergy rash, Verified 08/26/24 10:12 breathing problems triamcinolone AdvReac Severe Unknown Verified 08/26/24 10:12 Review of Systems 2 Narrative: Constitutional symptoms: Negative except as documented in HPI. Skin symptoms: Negative except as documented in HPI. Eye symptoms: Negative except as documented in HPI. ENMT symptoms: Negative except as documented in HPI. Respiratory symptoms: Negative except as documented in HPI. Cardiovascular symptoms: Negative except as documented in HPI. Gastrointestinal symptoms: Negative except as documented in HPI. Genitourinary symptoms: Negative except as documented in HPI. Musculoskeletal symptoms: Negative except as documented in HPI. Neurologic symptoms: Negative except as documented in HPI. Psychiatric symptoms: Negative except as documented in HPI. Endocrine symptoms: Negative except as documented in HPI. PFSH ED 2 PFSH: Medical History Cutaneous melanoma Enrolled in chronic care management Essential (primary) hypertension Arteriosclerotic vascular disease Myasthenia gravis Essential tremor Excessive daytime sleepiness Vitamin D deficiency B12 deficiency Acquired hypothyroidism Dyslipidemia Anxiety Neuropathy Colon polyp Osteoporosis Osteoarthritis of sacroiliac joint Esophageal thickening Positive skin test for tuberculosis Lung nodule LLL 4-5 mm, new nodule in right upper lobe Surgical History History of melanoma excision (11/11/22) Wide local excision of melanoma Hx of hysterectomy, total (~1974) Hx of oral surgery Hx of appendectomy Hx of tonsillectomy History of bunionectomy Hx of arthroscopy of right knee Hx of cholecystectomy Family History Father , age 67 Stroke Cancer lung Lung disease Mother Cancer melanoma, pancreatic CAD (coronary artery disease), Onset Age: 82 multiple stents [place] Family/Other CAD (coronary artery disease) Chronic kidney disease (CKD) Diabetes Lung disease Sister CAD (coronary artery disease) Brother Stroke Brother Melanoma Denies family history of Clotting disorder Dementia Suicide Anesthesia complication Bleeding disorder Social History Smoking and tobacco/nicotine status: never used tobacco/nicotine Second hand smoke exposure: Yes (exposure to heavy tobacco smoke) Alcohol intake: never Substance/Drug Use: never Lives independently: Yes Household members: none Housing: Apartment Current occupational status: retired Current gender identity: Female Kalie/Adventist: [employer] Female Reproductive History: Para: 2 Physical Exam 2 Narrative: EXAM NARRATIVE: General: Alert, no acute distress. Skin: Warm, dry. Head: Normocephalic, atraumatic. Neck: Supple, trachea midline. Eye: Extraocular movements are intact. Ears, nose, mouth and throat: mucosa moist. Cardiovascular: Regular, Normal peripheral perfusion. Respiratory: Lungs are clear to auscultation, respirations are non-labored, breath sounds are equal, Symmetrical chest wall expansion. Gastrointestinal: Soft, Nontender, Non distended Musculoskeletal: Normal ROM, no deformity. Neurological: Alert and oriented, No focal neurological deficit observed. Psychiatric: Cooperative, appropriate mood & affect. Course 2 Vital Signs: Vital signs: Vital Signs Temperature 98.4 F 08/26/24 17:58 Pulse Rate 73 08/26/24 21:43 Respiratory Rate 16 08/26/24 21:30 Blood Pressure 119/74 08/26/24 21:43 Pulse Oximetry 97 08/26/24 21:43 Oxygen Delivery Me thod Room Air 08/26/24 20:00 MDM - Chest Pain Medical Decision Making Differential diagnosis for patient with chest pain includes but is not limited to and based on the above HPI, review of systems and physical exam: Pneumonia. unstable angina. angina. Acute coronary syndrome / OK. Pulmonary embolism. Costochondritis / musculoskeletal. Pleurisy. Pericarditis. Esophageal spasm. Pancreatis. Cholecystitis. Orders placed to evaluate differential diagnosis based on the above differential, HPI and physical exam Lab Review: Laboratory results were reviewed and interpreted by myself the emergency room physician. Lab work is unremarkable I reviewed the patient's medical record. Reexamination: Patient remained stable. No increased work of breathing. No altered mental status. No focal motor deficits. Assessment and plan: Noncardiac chest pain - Discharged home - Discussed plan with patient. Answered any questions. - Evaluation and treatment of this problem were appropriate in the emergency setting. Lab Data 08/26/24 18:38 08/26/24 18:38 Radiology Impressions Chest CTA 08/26/24 18:03 IMPRESSION: 1. No evidence of pulmonary embolism. 2. Mild nonspecific thickening of the distal esophagus. Correlate with possible esophagitis. 3. Scattered areas of subpleural atelectasis and/or fibrotic change. Chest X-Ray 08/26/24 18:03 IMPRESSION: No acute cardiopulmonary disease. Laboratory Results WBC 7.34 10^3/uL (3.29-11.43) 08/26/24 18:38 RBC 3.73 10^6/uL (3.85-5.65) L 08/26/24 18:38 Hgb 12.00 g/dL (11.27-16.99) 08/26/24 18:38 Hct 36.0 % (36-47) 08/26/24 18:38 MCV 96.5 fl (85-98) 08/26/24 18:38 MCH 32.2 pg (27-33) 08/26/24 18:38 MCHC 33.3 g/dL (30-55) 08/26/24 18:38 RDW 13.2 % (12.1-15.1) 08/26/24 18:38 Plt Count 191 10^3/cmm (157-399) 08/26/24 18:38 MPV 11.6 fL (7.4-10.4) H 08/26/24 18:38 Neut % (Auto) 68.3 % 08/26/24 18:38 Lymph % (Auto) 20.4 % 08/26/24 18:38 [place] % (Auto) 6.5 % 08/26/24 18:38 Eos % (Auto) 3.7 % 08/26/24 18:38 Baso % (Auto) 0.8 % 08/26/24 18:38 Neut # (Auto) 5.01 10^3/uL (1.8-7.7) 08/26/24 18:38 Lymph # (Auto) 1.5 10^3/uL (0.8-4.8) 08/26/24 18:38 [place] # (Auto) 0.5 10^3/uL (0.2-0.9) 08/26/24 18:38 Eos # (Auto) 0.3 10^3/uL (0.0-0.8) 08/26/24 18:38 Baso # (Auto) 0.1 10^3/uL (0.0-0.1) 08/26/24 18: Nucleated RBC % (auto) 0 % 08/26/24 18:38 Nucleated RBCs # 0.0 /100WBC 08/26/24 18:38 Sodium 135 mmol/L (136-145) L 08/26/24 18:38 Potassium 4.6 mmol/L (3.5-5.1) 08/26/24 18:38 Chloride 100 mmol/L (98-107) 08/26/24 18:38 Carbon Dioxide 23 mmol/L (22-29) 08/26/24 18:38 Anion Gap 16.6 (5-19) 08/26/24 18:38 BUN 16 mg/dL (8-23) 08/26/24 18:38 Creatinine 0.8 mg/dL (0.5-0.9) 08/26/24 18:38 GFR Calculation Not Reportable 08/26/24 18:38 Glucose 328 mg/dL (65-115) H 08/26/24 18:38 Calculated Osmolality 294 mOsm/kg (285-295) 08/26/24 18:38 Calcium 8.8 mg/dL (8.5-10.5) 08/26/24 18:38 Total Bilirubin 0.2 mg/dL (0.15-1.2) 08/26/24 18:38 AST 16 U/L (0-32) 08/26/24 18:38 ALT 9 U/L (0-33) 08/26/24 18:38 Alkaline Phosphatase 75 U/L (35-105) 08/26/24 18:38 Troponin T Baseline 14 ng/L (0-10) H 08/26/24 18:38 Troponin T 120 Minute 14.78 ng/L (0-10) H 08/26/24 20:20 Delta Troponin T 0.78 ABS# (0-10) 08/26/24 20:20 NT-Pro-B Natriuret Pep 50 pg/mL (0-450) 08/26/24 18:38 Total Protein 6.0 g/dL (6.6-8.7) L 08/26/24 18:38 Albumin 3.8 g/dL (3.5-5.2) 08/26/24 18:38 Globulin 2.2 g/dL (1.3-4.6) 08/26/24 18:38 All radiology interpretation(s) finalized by discharge ED provider radiology interpretation(s): Differential diagnosis for patient with chest pain includes but is not limited to and based on the above HPI, review of systems and physical exam: Pneumonia. unstable angina. angina. Acute coronary syndrome / [place]. Pulmonary embolism. Costochondritis / musculoskeletal. Pleurisy. Pericarditis. Esophageal spasm. Pancreatis. Cholecystitis. Orders placed to evaluate differential diagnosis based on the above differential, HPI and physical exam Chest x-ray: No acute process. No infiltrate. No pneumothorax. This was reviewed and interpreted by myself the emergency room physician. I also reviewed the radiology report. Lab Review: Laboratory results were reviewed and interpreted by myself the emergency room physician. Cardiac markers are negative. I reviewed the patient's medical record. Reexamination: Patient remained stable. No increased work of breathing. No altered mental status. No focal motor deficits. Discharge Plan Discharge Patient Disposition: Home Clinical Impression: Non-cardiac chest pain Condition: Stable Prescriptions: No Action ascorbate calcium (vitamin C) 500 mg tablet 500 mg PO DAILY cholecalciferol (vitamin D3) 50 mcg (2,000 unit) capsule 50 mcg PO DAILY 90 Days Qty: 90 1RF albuterol sulfate [Ventolin HFA] 90 mcg/actuation HFA aerosol inhaler 2 puff INHALATION Q6H PRN (Reason: Shortness Of Breath) Qty: 18 0RF sennosides-docusate sodium 8.6-50 mg tablet 1 tab-cap PO BID PRN (Reason: constipation) melatonin 3 mg tablet 3 mg PO DAILY mecobalamin (vitamin B12) 1,000 mcg tablet,disintegrating 1,000 mcg sublingual DAILY Qty: 100 0RF Rx Instructions: place tablet under tongue and allow to dissolve for at least30 secs before swallowing nitroglycerin [Nitrostat] 0.4 mg tablet, sublingual 0.4 mg SUBLINGUAL Q5M PRN (Reason: Chest Pain) Qty: 20 4RF loratadine [Allergy Relief (loratadine)] 10 mg tablet 10 mg PO DAILY PRN (Reason: allergy symptoms) 90 Days Qty: 90 1RF levothyroxine [Synthroid] 100 mcg tablet See Rx Instructions .ROUTE .COMPLEX Qty: 90 1RF Dose Instruction: TAKE ONE TABLET BY MOUTH DAILY Rx Instructions: TAKE ONE TABLET BY MOUTH DAILY fluticasone propionate 50 mcg/actuation spray,suspension 2 spray intranasal DAILY Qty: 16 3RF Rx Instructions: administer into each nostril glipizide 5 mg tablet See Rx Instructions .ROUTE .COMPLEX Qty: 90 1RF Dose Instruction: TAKE ONE TABLET BY MOUTH DAILY Rx Instructions: TAKE ONE TABLET BY MOUTH DAILY insulin glargine [Lantus Solostar U-100 Insulin] 100 unit/mL (3 mL) insulin pen See Rx Instructions .ROUTE .COMPLEX Qty: 15 1RF Dose Instruction: inject 30 units SUBCUTANEOUSLY TWICE DAILY Rx Instructions: inject 30 units SUBCUTANEOUSLY TWICE DAILY (DME) pen needle, diabetic [UltiCare Pen Needle] 32 gauge x 5/32 needle See Rx Instructions .ROUTE .COMPLEX Qty: 100 1RF Dose Instruction: USE DIRECTED Rx Instructions: USE with insulin famotidine 40 mg tablet 40 mg PO BID Qty: 60 0RF (DME) True Metrix Glucose Test Strip Strip See Rx Instructions .ROUTE .COMPLEX Qty: 100 11RF Dose Instruction: USE TO test blood sugar THREE TIMES DAILY Rx Instructions: USE TO test blood sugar THREE TIMES DAILY lisinopril 5 mg tablet 10 mg PO DAILY Qty: 0 0RF Discharge Orders: Discharge ED (Routine); Ordered 08/26/24 Ordered By: Isis Houser Referrals: Marifer Weiss FNP-C [Primary Care Provider] - Discharge Diet: Usual diet Discharge Activity: Increase activity as tolerated Patient Instructions: Noncardiac Chest Pain (ED), Opioid Safety, Pain Management Activity Restrictions/Additional Instructions: Thank you for choosing [facility] for your healthcare needs today. Please realize this is an emergency room and that we are providing you with a medical screening exam and this may not be complete and all inclusive of all the testing and or work up that you may need to determine your ailment or severity of your illness. You have been screened and evaluated and felt safe for discharge. Health conditions do change or evolve sometimes and as such it is important that you follow up with your Primary Doctor to be re checked, 3-5 days is a general good time frame for follow up. You are always welcome to return to the ED for re assessment if your symptoms are worsening or you have new concerns Coding Level of Care Code ED Representative Government Relations for Marcela Orona
[2024-08-26 18:46] LABS: Basophils # 0.1 10^3/uL (0.0-0.1); Basophils % 0.8 %; Eosinophils # 0.3 10^3/uL (0.0-0.8); Eosinophils % 3.7 %; Lymphocytes # 1.5 10^3/uL (0.8-4.8); Lymphocytes % 20.4 %; Mean Corpuscular HGB Conc 33.3 g/dL (30-55); Mean Corpuscular Hemoglobin 32.2 pg (27-33); Mean Corpuscular Volume 96.5 fl (85-98); Mean Platelet Volume 11.6 fL (7.4-10.4); Monocytes # 0.5 10^3/uL (0.2-0.9); Monocytes % 6.5 %; Neutrophils # 5.01 10^3/uL (1.8-7.7); Neutrophils % 68.3 %; Nucleated Red Blood Cells % 0 %; Platelet Count 191 10^3/cmm (157-399); Red Blood Count 3.73 10^6/uL (3.85-5.65); Red Cell Distribution Width 13.2 % (12.1-15.1); White Blood Count 7.34 10^3/uL (3.29-11.43)
[2024-08-26 19:03] LABS: Troponin(5th) Baseline 14 ng/L (0-10)
[2024-08-26] MEDS: methylPREDNISolone sod succ 125 mg/2 mL INJ 60 MG IVP (19:04)
[2024-08-26] MEDS: diphenhydrAMINE 50 mg/mL SDV 1mL 25 MG IVP (19:05)
[2024-08-26 19:15] LABS: Alanine Aminotransferase 9 U/L (0-33); Albumin Level 3.8 g/dL (3.5-5.2); Alkaline Phosphatase 75 U/L (35-105); Blood Urea Nitrogen 16 mg/dL (8-23); Calcium 8.8 mg/dL (8.5-10.5); Carbon Dioxide 23 mmol/L (22-29); Chloride 100 mmol/L (98-107); Creatinine Clr Calc Pharmacy 59.5531; Globulin 2.2 g/dL (1.3-4.6); Glucose 328 mg/dL (65-115); NT Pro B Type Natriuretic Pept 50 pg/mL (0-450); Osmolality Calculated 294 mOsm/kg (285-295); Sodium 135 mmol/L (136-145); Total Bilirubin 0.2 mg/dL (0.15-1.2)
[2024-08-26 19:16] LABS: Anion Gap 16.6 (5-19); Aspartate Amino Transferase 16 U/L (0-32); Potassium 4.6 mmol/L (3.5-5.1)
[2024-08-26] MEDS: ondansetron 2 mg/ML SDV 2 mL 4 MG IVP (19:23)
[2024-08-26] MEDS: iohexol 350 mg/mL 500 mL Btl (per mL) IV (19:35)
[2024-08-26 19:40] VITALS: BP 152/89; PULSE 85; RESP 18; O2SAT 96
[2024-08-26 19:45] VITALS: PULSE 83; RESP 16; O2SAT 94
[2024-08-26 20:00] VITALS: BP 116/64; PULSE 84; RESP 14; O2SAT 95
[2024-08-26 20:43] LABS: Troponin 5 2HR 14.78 ng/L (0-10); Troponin 5 2HR Delta 0.78 ABS# (0-10)
[2024-08-26 21:30] VITALS: BP 114/72; PULSE 70; RESP 16; O2SAT 97
[2024-08-26 21:43] VITALS: BP 119/74; PULSE 73; O2SAT 97
== END 2024-08-26 21:45 | disposition home or self-care (01) ==
PROVIDERS: Emergency Provider Emergency Medicine; PCP Nurse Practitioner Family
DX: R07.89 Other chest pain (principal); Z79.4 Long term (current) use of insulin; I10 Essential (primary) hypertension; E78.5 Hyperlipidemia, unspecified; Z85.820 Personal history of malignant melanoma of skin
CPT/HCPCS: 71045; 71275; 80053; 80061; 83036; 83880; 84443; 84484; 85025; 85379; 93005; 96374; 96375; 99285; J1200; J2270; J2405; J2919

== ENCOUNTER → 2024-12-10 10:20 | Outpatient (BNVA) | payer MEDICARE, MEDICAID, SELFPAY | PROVIDERS: PCP Nurse Practitioner Family; Visit Provider Nurse Practitioner Family | DX: E03.9 Hypothyroidism, unspecified (principal); E11.9 Type 2 diabetes mellitus without complications; E11.42 Type 2 diabetes mellitus with diabetic polyneuropathy; E55.9 Vitamin D deficiency, unspecified | CPT/HCPCS: 80053; 80061; 82306; 82607; 83036; 84443; 85025 ==

== ENCOUNTER → 2025-03-27 11:12 | Outpatient (BNVA) | payer MEDICARE, MEDICAID, SELFPAY | PROVIDERS: PCP Nurse Practitioner Family; Visit Provider Nurse Practitioner Family | DX: E11.9 Type 2 diabetes mellitus without complications (principal); I10 Essential (primary) hypertension; E78.5 Hyperlipidemia, unspecified; E53.8 Deficiency of other specified B group vitamins; E55.9 Vitamin D deficiency, unspecified; E03.9 Hypothyroidism, unspecified; E11.42 Type 2 diabetes mellitus with diabetic polyneuropathy | CPT/HCPCS: 80053; 80061; 82306; 82607; 83036; 84443; 85025 ==

== ENCOUNTER → 2025-07-16 12:04 | Outpatient (BNVA) | payer MEDICARE, MEDICAID, SELFPAY | PROVIDERS: PCP Nurse Practitioner Family; Visit Provider Nurse Practitioner Family | DX: E55.9 Vitamin D deficiency, unspecified (principal); I10 Essential (primary) hypertension; E78.5 Hyperlipidemia, unspecified; E11.42 Type 2 diabetes mellitus with diabetic polyneuropathy | CPT/HCPCS: 80053; 80061; 82306; 82607; 83036; 84443; 85025 ==

== ENCOUNTER 2025-09-30 07:16 | Outpatient (CLI) | payer MEDICARE, MEDICAID, SELFPAY ==
--- NOTE | 2025-09-30 07:00 | USCV_ITS ---
Evangelista Cactus Age: 79 Gender: F : 1945 Exam Date: 09/30/2025 07:58 Ordering Phys: Homer Villalobos MD ([email or web address]) Technologist: ELIO Exam Location: [facility] Indication: SOB BP: 130 / 65 HR: 78 Rhythm: Sinus Technical Quality: Adequate MEASUREMENTS (Male / Female) Normal Values 2D ECHO LV Diastolic Diameter PLAX 5.1 cm 4.2 - 5.9 / 3.9 - 5.3 cm IVS Diastolic Thickness 0.7 cm 0.6 - 1.0 / 0.6 - 0.9 cm IVS Systolic Thickness 1.0 cm LVPW Diastolic Thickness 0.8 cm 0.6 - 1.0 / 0.6 - 0.9 cm LVPW Systolic Thickness 1.1 cm LVOT Diameter 1.9 cm LV Ejection Fraction 2D Teich 40.9 % LV Ejection Fraction MOD 4C 59.4 % LV Ejection Fraction MOD 2C 52.6 % LV Ejection Fraction 2C AL 55.6 % LA Diameter 3.6 cm RA Systolic Volume 4C AL 18.6 ml RA Systolic Volume 4C MOD 17.9 ml LA Sys Volume AL 47.2 cm cubed LA Sys Volume Index AL 23.8 cm cubed/m squared Aorta at Sinotubular Diameter 2.7 cm IVC Diameter 1.8 cm M-MODE LA Ao Ratio MM 1.4 AV Cusp Separation MM 1.9 cm DOPPLER AV Peak Velocity 119.0 cm/s LVOT Peak Velocity 104.0 cm/s AV Area Cont Eq vti 2.4 cm squared AV Area Cont Eq pk 2.4 cm squared MV Peak Velocity 104.0 cm/s MV Area PHT 5.6 cm squared Mitral E to A Ratio 0.7 TV Peak Velocity 102.5 cm/s TR Peak Velocity 123.0 cm/s TR Peak Gradient 6.1 mmHg TV Peak E Velocity 73.0 cm/s PV Peak Velocity 98.0 cm/s FINDINGS Left Ventricle Normal left ventricular size, systolic function and wall thickness, with no regional wall motion abnormalities. Left ventricular ejection fraction is estimated at 60 %. Grade I/IV diastolic dysfunction (abnormal relaxation filling pattern), normal to mildly elevated filling pressures. Right Ventricle Normal right ventricular size and systolic function. Right Atrium Normal right atrial size. Left Atrium Normal left atrial size. IA Septum Normal appearance of the interatrial septum. Mitral Valve Mildly thickened mitral valve. No mitral valve stenosis. Trace mitral valve regurgitation. Aortic Valve Normal aortic valve structure. No aortic valve stenosis or regurgitation. Tricuspid Valve Normal tricuspid valve structure. No tricuspid valve stenosis or regurgitation. Normal pulmonary pressure. Pulmonic Valve Normal pulmonic valve structure. No pulmonic valve stenosis or regurgitation. Pericardium No pericardial effusion. Aorta Normal diameter of the aortic root and ascending thoracic aorta. IVC Normal IVC diameter. CONCLUSIONS Normal left ventricular size, systolic function and wall thickness, with no regional wall motion abnormalities. Left ventricular ejection fraction is estimated at 60 %. Grade I/IV diastolic dysfunction (abnormal relaxation filling pattern), normal to mildly elevated filling pressures. There is no pericardial effusion. No significant valvular abnormalities. Right atrial pressure is around 5 mm of mercury. Braeden Dia MD (Electronically Signed) Final Date: 06 October 2025 01:12 S
--- NOTE | 2025-09-30 07:36 | NMCV_ITS ---
NM joe perf SPECT r/s* [id number] [address] Age: 79 Gender: F : 1945 Exam Date: 09/30/2025 08:18 Ordering Phys: Homer Villalobos MD ([email or web address]) Technologist: CAMELIA Jiang Exam Location: [facility] Indications: cp STRESS TEST Please see separate stress test report in [facility] for full findings IMAGE PROTOCOL Rest/Stress 1 Lexiscan Day Radiopharmaceutical Dose (mCi) Administration Site Administered by Rest: Tc-99m 10.9 IV Lynette Stubbs BOOTS AND SHOES SUPERVISOR Sestamibi Stress:Tc-99m 33 IV Lynette Stubbs, BOOTS AND SHOES SUPERVISOR Sestamibi Rest: 30-Sep-2025 60 Discovery 630 Stress: 30-Sep-2025 30 Discovery 630 0.4mg Lexiscan. Supine position only as patient was unable to lay prone. SPECT RESULTS Technical Quality: Good Raw Data Analysis: Normal Image Corrections: No attenuation or motion correction applied Summed Stress Score: 0 Summed Rest Score: 0 Summed Difference Score: 0 PERFUSION FINDINGS SPECT images demonstrate homogeneous tracer distribution throughout the myocardium. FUNCTIONAL RESULTS (calculated via Gated SPECT) Stress Image LV EF (%): 85 Stress EDV (mL):52 TID: 0.79 Stress ESV (mL):8 FUNCTIONAL FINDINGS: There is normal left ventricular systolic function. IMPRESSIONS Myocardial perfusion imaging is normal. Braeden Dia MD (Electronically Signed) Final Date: 30 September 2025 15:14 S
[2025-09-30 07:37] VITALS: BMI 28.1
--- NOTE | 2025-09-30 09:24 | PC.NURSE ---
At 0900 during the 4th minute of the Lexiscan stress test, the computer went completely down. All EKGs and vital signs were lost. IT and biomed were called immediately and arrived at 0921. Dr. Becerra was made aware. He asked to notify Dr. Dia as he is reading the studies today. Dr. Dia was then notified that there would only be nuclear images to read. Again, THERE WILL BE NO EKG PORTION OF THE STRESS TEST TO READ, ONLY NUCLEAR IMAGES.
== END 2025-09-30 07:17 | disposition home or self-care (01) ==
LOC: RAD 07:18 → CDL 07:24
PROVIDERS: PCP Nurse Practitioner Family; Visit Provider Internal Medicine Cardiovascular Disease
DX: R07.9 Chest pain, unspecified (principal); R06.09 Other forms of dyspnea; R06.02 Shortness of breath; I51.89 Other ill-defined heart diseases
CPT/HCPCS: 36415; 78452; 93017; 93306; 96374; A9500; J2785

== ENCOUNTER 2025-10-02 18:43 | Emergency (ER) | payer MEDICARE, MEDICAID, SELFPAY ==
--- OUTSIDE RECORDS SUMMARY | 2024-05-27 02:10 | XMS_ITS ---
Author Organization [facility] Address [address] [place] [address] Care Team Providers Care Educational Fundraising Director Name Role Phone Lynette Smalls Primary Care Provider Geo Amezquita [facility] [phone] REASON FOR VISIT RIGHT TOTAL HIP ARTHROPLASTY VIA DIRECT ANTERIOR Encounters Encounter Location Date Provider Diagnosis [facility] [address] [place] [address] 05/27/2024 Geo Camacho Plan Of Treatment No Information Progress Notes * MEGHANA RODRIGUEZ SDOB: [birth year] (79 yo F)Acc No.[id number]:05/27/2024 Patient: MEGHANA MCINTOSH S Provider: Diane Camacho M.D. :1945 A ge:78 Y S ex:Female Date:05/27/2024 Address:[address] [id number] Pcp:Lynette Smalls Billing Information: * Procedure Codes: * Electronic signature of Alonzo Camacho MD on 10/02/2025 at 06:51 PM REHAB THERAPIST Sign off status: Pending * Provider: Diane Camacho M.D. Date: 0 05/27/2024 Generated for Tong kennedy/Valentin/eTransmitting on: 12/03/2024 06:51 PM REHAB THERAPIST
--- OUTSIDE RECORDS SUMMARY | 2024-06-04 08:00 | XMS_ITS ---
Author Organization [facility] Address [address] [place] [address] Care Team Providers Care Restaurant Worker Name Role Phone Lynette Smalls Primary Care Provider Geo Amezquita Unavailable [phone] REASON FOR VISIT RIGHT HIP Encounters Encounter Location Date Provider Diagnosis [facility] [address] [place] [address] 06/04/2024 Geo Camacho Plan Of Treatment No Information Progress Notes * MEGHANA RODRIGUEZ SDOB: [birth year] (79 yo F)Acc No.[id number]:06/04/2024 Patient: MEGHANA MCINTOSH S Provider: Diane Camacho M.D. :1945 A ge:78 Y S ex:Female Date:06/04/2024 Address:[address] [id number] Pcp:Lynette Smalls Subjective: * Chief Complaints: * R IGHT HIP Billing Information: * Procedure Codes: * Electronic signature of Alonzo Camacho MD on 10/02/2025 at 06:51 PM FERRYBOAT PILOT Sign off status: Pending * Provider: Diane Camacho M.D. Date: 0 06/04/2024 Generated for Tong kennedy/Valentin/Joana on: 12/03/2024 06:51 PM FERRYBOAT PILOT
--- OUTSIDE RECORDS SUMMARY | 2025-10-02 18:52 | XMS_ITS | Encounter Summary ---
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
--- OUTSIDE RECORDS SUMMARY | 2025-10-02 18:52 | XMS_ITS | Encounter Summary ---
Author Organization [facility] Address [address] [place] [address] Care Team Providers Care Slab Lifting Engineer Name Role Phone Non-Staff, Physician Primary Care Provider Unanathaly ilable Encounter Details Date Type Department Care Team (Latest Contact Info) Description 05/19/2006 Outpatient Historical [facility] Cardiac Chicken Vaccinator [address] [facility] [place] [address] Madhu Loza MD NO ADDRESS ON FILE Unspecified Chest Pain (Primary Dx) Social History Tobacco Use Types Packs/Day Years Used Date Smoking Tobacco: Never Assessed Comments Unknown Sex and Gender Information Value Date Recorded Sex Assigned at Not on file 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 Gender Identity Not on file Sexual Orientation Not on file documented as of this encounter Plan of Treatment Not on file documented as of this encounter Procedures Procedure Name Priority Date/Time Associated Diagnosis Comments PT AND APTT Routine 05/19/2006 6:25 AM CDT CBC WITHOUT DIFFERENTIAL Routine 05/19/2006 6:25 AM CDT BASIC METABOLIC PANEL Routine 05/19/2006 6:25 AM CDT documented in this encounter Results * (ABNORMAL) CBC WITHOUT DIFFERENTIAL (05/19/2006 6:25 AM CDT) WBC 4.5(L) 4.8 - 10.8 K/ul INTERFACE SYSTEM RBC 4.20 4.20 - 5.40 Mil/ul INTERFACE SYSTEM HEMOGLOBIN 14.0 12.0 - 16.0 g/dL INTERFACE SYSTEM HEMATOCRIT 41.1 36.0 - 46.0 % INTERFACE SYSTEM MCV 97.9 84.0 - 103.0 Fl INTERFACE SYSTEM MCH 33.3 27.0 - 34.0 pg INTERFACE SYSTEM MCHC 34.1 30.0 - 35.0 g/dL INTERFACE SYSTEM RDW 12.9 11.0 - 14.5 % INTERFACE SYSTEM PLATELETS 187 140 - 440 K/ul INTERFACE SYSTEM MPV 11.4 8.9 - 12.8 Fl INTERFACE SYSTEM NEUTROPHILS 72.5 42.2 - 75.2 % INTERFACE SYSTEM LYMPHOCYTES 23.1(L) 24.0 - 44.0 % INTERFACE SYSTEM MONOCYTES 3.8 2.0 - 10.0 % INTERFACE SYSTEM EOSINOPHILS 0.2 0.0 - 7.0 % INTERFACE SYSTEM BASOPHILS 0.4 0.0 - 1.0 % INTERFACE SYSTEM NEUTROPHIL ABSOLUTE 3.2 2.0 - 8.0 K/uL INTERFACE SYSTEM LYMPHOCYTE ABSOLUTE 1.0(L) 1.2 - 4.0 K/ul INTERFACE SYSTEM MONOCYTE ABSOLUTE 0.2 0.1 - 0.6 K/ul INTERFACE SYSTEM EOSINOPHIL ABSOLUTE 0.0 0.0 - 0.7 K/ul INTERFACE SYSTEM BASOPHILS ABSOLUTE 0.0 0.0 - 0.2 K/ul INTERFACE SYSTEM 05/19/2006 6:25 AM CDT us Madhu Loza MD HEMATOLOGY ORDERABLES Final Result INTERFACE SYSTEM Refer to clinic/hospital department * PT AND APTT (05/19/2006 6:25 AM CDT) PROTIME 13.7 12.6 - 14.9 Secs INTERFACE SYSTEM Comment: As of 05 note change in normal range. INR 1.0 INTERFACE SYSTEM Comment: Expected Values for INR: DVT/PE Goal INR 2.5; range 2.0 - 3.0 Valve Replacement Tissue Goal INR 2.5; range 2.0 - 3.0 Mechanical Goal INR 3.0; range 2.5 - 3.5 POST-MO Goal INR 2.5; range 2.0 - 3.0 or Goal 3.0; range 2.5 - 3.5 Atrial Fibrillation Goal INR 2.5; range 2.0 - 3.0 Ischemic Stroke Goal INR 2.5; range 2.0 - 3.0 For additional information see Guidelines for Anticoagulation available from the pharmacy Gini Larry PTT 25.0 21.5 - 34.4 Secs INTERFACE SYSTEM Comment: Therapeutic Range: Hi-level PE/DVT heparin protocol 90.1 -110 sec Lo-level PE/DVT heparin protocol 75.1 - 95 sec Cardiac Heparin Protocol 85.1 - 100 sec Neuro Heparin Protocol 70.1 - 85 sec As of 11/02/05 note change in APTT Normal Range. 05/19/2006 6:2 5 AM CDT Madhu Loza MD HEMATOLOGY ORDERABLES Final Result Performing Organization Address [facility] Phone Number INTERFACE SYSTEM Refer to clinic/hospital department * (ABNORMAL) BASIC METABOLIC PANEL (05/19/2006 6:25 AM CDT) GLUCOSE 136(H) 70 - 110 mg/dL INTERFACE SYSTEM BUN 13 7 - 17 mg/dL INTERFACE SYSTEM CREATININE 1.0 0.7 - 1.2 mg/dL INTERFACE SYSTEM SODIUM 141 136 - 145 mEq/L INTERFACE SYSTEM POTASSIUM 4.4 3.5 - 5.0 mEq/L INTERFACE SYSTEM CHLORIDE 107 95 - 110 mEq/L INTERFACE SYSTEM CO2 24 22 - 32 mmol/l INTERFACE SYSTEM ANION GAP 14 9 - 20 mEq/L INTERFACE SYSTEM OSMOLALITY, CALCULATED 293 275 - 295 mOsm/Kg INTERFACE SYSTEM CALCIUM 9.5 8.4 - 10.5 mg/dL INTERFACE SYSTEM 05/19/2006 6:25 AM CDT Madhu Loza MD CHEMISTRY ORDERABLES Final Result Performing Organization Address [facility] Phone Number INTERFACE SYSTEM Refer to clinic/hospital department documented in this encounter Visit Diagnoses Diagnosis Chest pain, unspecified- Primary documented in this encounter Care Teams Slab Lifting Engineer Relationship Specialty Start Date End Date Non-Staff, Physician NO ADDRESS ON FILE PCP - General 10/23/07 documented as of this encounter
--- OUTSIDE RECORDS SUMMARY | 2025-10-02 18:52 | XMS_ITS | Encounter Summary ---
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
--- OUTSIDE RECORDS SUMMARY | 2025-10-02 18:52 | XMS_ITS | Encounter Summary ---
Author Organization [facility] Address [address] [place] [address] Care Team Providers Care Bag Printer Name Role Phone Non-Staff, Physician Primary Care Provider Unanathaly ilable Encounter Details Date Type Department Care Team (Late st Contact Info) Description 07/27/1999 Outpatient Historical [facility] Occupational Medicine-Medeiros [place] [address] [place] [address] Social History Tobacco Use Types Packs/Day Years Used Date Smoking Tobacco: Never Assessed Comments Unknown Sex and Gender Information Value Date Recorded Sex Assigned at Not on file Legal Sex Female 5:11 AM SEA KAYAKING GUIDE Gender Identity Not on file Sexual Orientation Not on file documented as of this encounter Plan of Treatment Not on file documented as of this encounter Visit Diagnoses Not on filedocumented in this encounter Care Teams Bag Printer Relationship Specialty Start Date End Date Non-Staff, Physician NO ADDRESS ON FILE PCP - General 10/23/07 documented as of this encounter
--- OUTSIDE RECORDS SUMMARY | 2025-10-02 18:52 | XMS_ITS | Clinical Summary ---
Author Organization [facility] Address 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
--- OUTSIDE RECORDS SUMMARY | 2025-10-02 18:52 | XMS_ITS | Encounter Summary ---
Author Organization [facility] Address [address] [place] [address] Care Team Providers Care Resolute Professional Name Role Phone Non-Staff, Physician Primary Care Provider Unanathaly ilable Encounter Details Date Type Department Care Team (Late st Contact Info) Description 06/30/1999 Outpatient Historical [facility] Occupational Medicine-Medeiros [place] [address] [place] [address] Social History Tobacco Use Types Packs/Day Years Used Date Smoking Tobacco: Never Assessed Comments Unknown Sex and Gender Information Value Date Recorded Sex Assigned at Not on file Legal Sex Female 5:11 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
--- OUTSIDE RECORDS SUMMARY | 2025-10-02 18:52 | XMS_ITS | Encounter Summary ---
Author Organization [facility] Address [address] [place] [address] Care Team Providers Care Tariff Compiling Clerk Name Role Phone Non-Staff, Physician Primary Care Provider Unanathaly ilable Encounter Details Date Type Department Care Team (Late st Contact Info) Description 05/05/1999 Outpatient Historical [facility] Occupational Medicine-Waldemar Saulnn Any [address] [place] [address] Social History Tobacco Use Types Packs/Day Years Used Date Smoking Tobacco: Never Assessed Comments Unknown Sex and Gender Information Value Date Recorded Sex Assigned at Not on file 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
--- OUTSIDE RECORDS SUMMARY | 2025-10-02 18:52 | XMS_ITS | Encounter Summary ---
Author Organization [facility] Address [address] [place] [address] Care Team Providers Care School Psychological Examiner Name Role Phone Non-Staff, Physician Primary Care Provider Unanathayl ilable Encounter Details Date Type Department Care Team (Late st Contact Info) Description 06/02/1999 Outpatient Historical [facility] Occupational Medicine-Waldemar Saulnn [address] [place] [address] Social History Tobacco Use Types Packs/Day Years Used Date Smoking Tobacco: Never Assessed Comments Unknown Sex and Gender Information Value Date Recorded Sex Assigned at Not on file Legal Sex Female 5:11 AM MANAGEMENT CONSULTING Gender Identity Not on file Sexual Orientation Not on file documented as of this encounter Plan of Treatment Not on file documented as of this encounter Visit Diagnoses Not on filedocumented in this encounter Care Teams School Psychological Examiner Relationship Specialty Start Date End Date Non-Staff, Physician NO ADDRESS ON FILE PCP - General 10/23/07 documented as of this encounter
--- OUTSIDE RECORDS SUMMARY | 2025-10-02 18:52 | XMS_ITS | Clinical Summary ---
Author Organization [facility] Address [address] [facility] Attn: Epic Prelude [place]T [place] [address] Care Team Providers Care Software Asset Manager Name Role Phone Non-Staff, Physician Primary Care Provider Unava ilable Social History Tobacco Use Types Packs/Day Years Used Date Smoking Tobacco: Never Assessed Comments Unknown Sex and Gender Information Value Date Recorded Sex Assigned at Not on file Legal Sex Female 12:25 PM CANCER PROGRAM COORDINATOR Gender Identity Not on file Sexual Orientation [...] A [place] Care Teams Software Asset Manager Relationship Specialty Start Date End Date Non-Staff, Physician NO ADDRESS ON FILE PCP - General 10/23/07
--- OUTSIDE RECORDS SUMMARY | 2025-10-02 18:52 | XMS_ITS | Patient Health Record ---
Author Organization [facility] Address [address] [place] [address] Care Team Providers Care Automotive Window Tinter Name Role Phone Lynette Smalls Primary Care Provider Geo Amezquita Unavailable [phone] Allergies Allergen (clinical drug ingredient) Drug/Non Drug Allergy documented on EMR Reaction Allergy Type Onset Date Status atorvastatin Atorvastatin Calcium Unknown Drug Allergy Active Ciprofloxacin unknown Drug Allergy Act mauri fluticasone Fluticasone Propionate unknown Drug Allergy Active levetiracetam Keppra Unknown Drug Allergy Act mauri morphine Morphine Sulfate rash Drug Allergy Active nitrofurantoin Nitrofurantoin rash Drug Allergy Active pantoprazole Pantoprazole Sodium diarrhea, abdominal pain, muscle weakness Drug Allergy Active doxycycline Doxycycline rash Drug Allergy Act mauri Substance with estrogen receptor agonist mechanism of action (substance) Estrogens unknown Drug Allergy Active metformin Metformin diarrhea Drug Allergy Active Penicillin unknown RX Drug Allergy Activ e pyridostigmine Pyridostigmine shock Drug Allergy Active salmeterol Salmeterol unknown Drug Allergy Activ e Shellfish (FN) Shellfish-derived Products anaphylaxis Drug Allergy Active triamcinolone Triamcinolone unknown Drug Allergy Active Reason For Referral No Information Medications Medication SIG (Take, Route, Frequency, Duration) Notes Start Date End Date Status Xanax 0.5 MG Tablet 1 tablet Orally Twice a day; Duration: 5 days As needed 05/24/2024 Active Albuterol Sulfate HFA Active Pen [place] 31G X 6 MM Miscellaneous as directed Active ALPRAZolam 0.25 MG Tablet 1 tablet Orally Twice a day Active True Metrix Blood Glucose Test Active Nitroglycerin 0.4 MG Tablet Sublingual as directed Sublingual Active Ondansetron 4 MG Tablet Disintegrating 1 tablet on the tongue and allow to dissolve Orally Once a day Active Lisinopril 5 MG Tablet 2 tablets Orally Once a day Active Loratadine 10 MG Tablet 1 tablet Orally Once a day Active Insulin Glargine 100 UNIT/ML Solution as directed Subcutaneous Takes 30 units daily Active Levothyroxine Sodium Active glipiZIDE 5 MG Tablet 1 tablet 30 minute s before breakfast Orally Once a day Active Cholecalciferol 50 MCG (1999 [place]) Tablet 1 tablet Orally Once a day Active Vitamin B12 1000 MCG Tablet Extended Release 1 tablet Orally Once a day Active Famotidine 40 MG Tablet as directed Orally Active Vitamin C 500 MG Capsule as directed Orally Active Social History Tobacco Use: Social History Observation Description Date Details (start date - stop date) Never Smoker NA - NA Social History Tobacco Use: Social Info Question Answer Notes Tobacco Control (Standard) Tobacco use: Nonsmoker Problems Problem Type SNOMED Code ICD Code Onset Dates Problem Status W/U Status Risk Notes Problem Chronic pain (11632370) Other chronic pain (G89.29) Active confirmed Problem Age-related osteoporosis (203050852) Age-related osteoporosis without current pathological fracture (M81.0) Active confirmed Problem Vitamin D deficiency (61158383) Vitamin D deficiency (E55.9) Active confirmed Problem Arthritis of hip (33505258) Hip arthritis (M16.10) Active confirmed Problem Arthritis of right hip (1791937269615837 ) Arthritis of right hip (M16.11) Active confirmed Problem Total hip replacement Prosthesis (400121901) Status post total hip replacement, 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) Active confirmed Problem Patellofemoral syndrome of right knee (5272864920475762 ) Patellofemoral pain syndrome of right knee (M22.2X1) Active confirmed Problem Total hip replacement Prosthesis (124959065) 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) Active confirmed Vital Signs Heart Rate 104 /min 05/16/2025 Blood pressure diastolic 80 mm Hg 05/16/2025 Oximetry 97 % 05/16/2025 Height-cm 170.18 cm 05/16/2025 Weight-kg 79.38 kg 05/16/2025 Height 67 in 05/16/2025 Blood pressure systolic 124 mm Hg 05/16/2025 Weight 175 lbs 05/16/2025 BMI 27.41 kg/m2 05/16/2025 Encounters Encounter Location Date Provider Diagnosis [facility] [address] [place] [address] 02/21/2025 Geo Camacho Status post total replacement of right hip Z96.641 ; Other chronic pain G89.29 and Low back pain, unspecified M54.50 [facility] [address] [place] [address] 05/16/2025 Geo Camacho Status post total hi p replacement, right Z96.641 Assessments Encounter Date Diagnosis (ICD Code) Assessment Notes Treatment Notes Treatment Clinical Notes Section Notes 02/21/2025 Other chronic pain (ICD-10 - G89.29) 02/21/2025 Status post total replacement of right hip (ICD-10 - Z96.641) Montserrat's right total hip arthroplasty looks good. Her pain from her surgery looks much better. She is doing well walking with the aid of a cane. Most of her pain is her low back at this time. 05/16/2025 Status post total hip replacement, right (ICD-10 - Z96.641) Individual I think is doing very well with her hip. She notes herself that her hip is pain-free. Her main issue is balance and her back pain. I have asked her if she has been back to her chiropractor and she tells me she has not but she will go. From my standpoint I can see her on her hip in about 1 year I think it is stable. She agrees with this as well. 02/21/2025 Low back pain, unspecified (ICD-10 - M54.50) This individual has chronic lumbago. She is wondering if she should see her chiropractor. I told her that is fine with me. We will recheck in 3 months to see if it has helped. Plan Of Treatment Pending Test Test Name Order Date X-RAY EXAM HIP UNI 2-3 VIEW 04/29/2024 MRSA Screen PCR--[id number] 05/03/2024 Basic Metabolic Panel (BMP) 78097 2023 CBC Reflex Man Diff 94276, 63495 024 Vitamin D Total (B) 38406 05/03/2024 UA Reflex Micro, Reflex Cult 12811, 8101 5, 42712 05/06/2024 UA Reflex Micro, Reflex Cult 93203, 8101 5, 82007 05/03/2024 Electrocardiogram 12 Lead Tracing (EKG)- [id number] 05/03/2024 Insurance Providers Payer Name Payer Address Payer Phone Subscriber Number Group Number Insured Name Patient Relationship to Insured Coverage Start Date Coverage End Date [place] [address] [address] [place] [address] [id number] MEGHANA RODRIGUEZ Self - patient is the insured [place] Medicaid [address] [place] [address] [phone] [id number] MICHAEL, GENENJ Self - patient is the insured [place] Medicare [place] [address] [place] [address] [id number] MICHAELMEGHANA Self - patient is the insured 1 Medical (General) History Medical History History ICD Code excessive daytime Cutaneous melanoma Chronic care management essential hypertension arteriosclerotic vascular disease essential tremor excessive daytime sleepiness Vitamin D Deficiency Vit B deficiency hypothyroidism dyslipidemia anxiety neuropathy colon polyp osteoporosis 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
[2025-10-02 19:05] VITALS: BP 121/72; PULSE 97; RESP 18; TEMP 36.8; O2SAT 98
--- NOTE | 2025-10-02 21:05 | CTR_ITS ---
PROCEDURE INFORMATION: Exam: CT Abdomen And Pelvis Without Contrast Exam date and time: 10/02/2025 10:11 PM Age: 79 years old Clinical indication: Abdominal pain; Prior surgery; Surgery date: 6+ months; Surgery type: Gb, hyst; Right upper quad epigastric pain x 3 weeks. Nausea vomiting and diarrhea; Additional info: Ruq epigastric pain TECHNIQUE: Imaging protocol: Computed tomography of the abdomen and pelvis without contrast. Radiation optimization: All CT scans at this facility use at least one of these dose optimization techniques: automated exposure control; mA and/or kV adjustment per patient size (includes targeted exams where dose is matched to clinical indication); or iterative reconstruction. COMPARISON: CT abdomen pelvis w con* [id number] 12/31/2023 8:24 PM RADIATION DOSE METRICS: Total DLP (mGy-cm): 760.53 FINDINGS: Lungs: Mild bibasilar subpleural reticulation compatible with atelectasis and/or fibrosis. Bilateral calcified granulomata. Diaphragm: Small hiatal hernia. Liver: Right hepatic subcentimeter hypodensity too small to characterize. Otherwise unremarkable. Gallbladder and biliary ducts: Prior cholecystectomy without biliary ductal dilatation. Pancreas: Normal. No ductal dilation. Spleen: Normal. No splenomegaly. Adrenal glands: Normal. No mass. Kidneys and ureters: Simple appearing left renal cortical cyst and renal sinus cysts redemonstrated. Slight symmetric perirenal fat stranding is likely age related. Otherwise unremarkable. Stomach and bowel: No bowel dilatation to suggest obstruction. Colonic diverticulosis without findings of diverticulitis. Fluid within nondilated small and proximal large bowel. Appendix: No evidence of appendicitis. Intraperitoneal space: Unremarkable. No free air. No significant fluid collection. Vasculature: Heavy systemic atherosclerotic calcification without abdominal aortic aneurysm. Lymph nodes: Unremarkable. No enlarged lymph nodes. Urinary bladder: Unremarkable as visualized. Reproductive: The uterus is surgically absent. Bones/joints: Diffuse bony demineralization without acute fracture. Mild dextroconvex lateral curvature. Degenerative changes along the imaged axial skeletal system. Partially imaged right total hip arthroplasty. Soft tissues: Unremarkable. CT/CT abdomen pelvis wo con [id number] IMPRESSION: 1. Fluid within nondilated small and proximal large bowel is nonspecific but may be seen in the setting of diarrheal illness. 2. Additional chronic and incidental findings as above. COMMENTS: Consistent with the [employer]'s Incidental Findings Committee white paper (J Am Silvano Radiol 2018): Any incidental renal lesion less than 1 cm or classified as too small to characterize, or any incidental cystic renal lesion characterized as simple-appearing, is likely benign. No follow-up imaging is recommended for these lesions per consensus recommendations based on imaging criteria.
--- NOTE | 2025-10-02 21:05 | XRR_ITS ---
PROCEDURE INFORMATION: Exam: XR Chest Exam date and time: 10/02/2025 9:08 PM Age: 79 years old Clinical indication: Pain; Other: Epigastric; Prior surgery; Surgery date: 6+ months; Surgery type: Gallbladder; Additional info: Epigastric pain TECHNIQUE: Imaging protocol: Radiologic exam of the chest. Views: 1 view. COMPARISON: 1. CT angio chest PE protcl [id number] 08/26/2024 7:27 PM 2. CR XR chest 1V portable [id number] 08/26/2024 6:22 PM FINDINGS: Lungs: Stable mild chronic interstitial prominence. No consolidation. Pleural spaces: Unremarkable. No pleural effusion. No pneumothorax. Heart/Mediastinum: Unremarkable. No cardiomegaly. Vasculature: Aortic arch atherosclerotic calcification. Bones/joints: Unremarkable. XR/XR chest 1V portable [id number] IMPRESSION: No acute findings.
[2025-10-02 21:10] VITALS: BP 142/80; PULSE 96; O2SAT 97
[2025-10-02 21:29] LABS: Add Urine Microscopic? YES
[2025-10-02 21:57] LABS: Hematocrit 39.5 % (36-47); Hemoglobin 13.10 g/dL (11.27-16.99); Mean Corpuscular HGB Conc 33.2 g/dL (30-55); Mean Corpuscular Hemoglobin 32.7 pg (27-33); Mean Corpuscular Volume 98.5 fl (85-98); Nucleated Red Blood Cells % 0 %; Platelet Count 217 10^3/cmm (157-399); Red Blood Count 4.01 10^6/uL (3.85-5.65); White Blood Count 10.47 10^3/uL (3.29-11.43)
[2025-10-02 22:04] VITALS: BP 136/82; PULSE 51; O2SAT 81
[2025-10-02 22:16] LABS: Lactic Sepsis W/Reflex 2.1 mmol/L (0.5-2.2)
[2025-10-02 22:17] LABS: Alanine Aminotransferase 12 U/L (0-33); Albumin Level 4.1 g/dL (3.5-5.2); Alkaline Phosphatase 73 U/L (35-105); Anion Gap 15.7 (5-19); Aspartate Amino Transferase 12 U/L (0-32); Blood Urea Nitrogen 14 mg/dL (8-23); Calcium 8.8 mg/dL (8.5-10.5); Carbon Dioxide 24 mmol/L (22-29); Chloride 103 mmol/L (98-107); Globulin 2.9 g/dL (1.3-4.6); Glucose 242 mg/dL (65-115); Lipase 14 U/L (13-60); Osmolality Calculated 294 mOsm/kg (285-295); Potassium 4.7 mmol/L (3.5-5.1); Sodium 138 mmol/L (136-145); Total Protein 7.0 g/dL (6.6-8.7)
--- NOTE | 2025-10-02 22:39 | ED_ITS ---
HPI - Abdominal Pain 2 General: Chief Complaint: Abdominal Pain Stated Complaint: N/V/D Time Seen by Provider: 10/02/25 20:49 History of Present Illness: This 79-year-old female presents with a three-week history of intermittent nausea, vomiting, and diarrhea that has become constant over the past three days. She reports vomiting 6-7 times today with an equal frequency of diarrhea episodes, describing prolonged periods sitting on the toilet. The patient denies fever and reports no other household members being ill. She experiences diffuse abdominal pain and tenderness, particularly across the upper abdomen with some localization to the right lower quadrant where she notes tenderness in the area of her appendix. She has been self-medicating with prescription anti-nausea medication (up to three capsules daily) and pediatric anti-emetic medication, which provided some relief last night. The patient also reports recent chest pain and an intermittent cough that occasionally sounds asthmatic. She underwent cardiac stress testing three days ago, including chemical stress test and echocardiogram, due to frequent chest pain episodes. Additionally, she complains of neck pain attributed to frequent vomiting episodes. Related Data Home Medications ?Medication ?Instructions ?Recorded ?Confirmed ascorbate calcium (vitamin C) 500 500 mg PO DAILY 12/0807/16/25 mg tablet sennosides 8.6 mg-docusate sodium 1 tab-cap PO BID PRN constipation 07/31/24 07/16/25 50 mg tablet Previous Rx's ?Medication ?Instructions ?Recorded mecobalamin (vitamin B12) 1,000 1,000 mcg sublingual D AILY #100 01/15/24 mcg disintegrating tabs tablet,sublingual nitroglycerin 0.4 mg sublingual 0.4 mg sublingual Q5M PRN Chest 01/31/24 tablet (Nitrostat) Pain #20 tabs fluticasone propionate 50 2 spray intranasal DAILY #16 grams 04/19/24 mcg/actuation nasal spray,suspension albuterol sulfate 90 mcg/actuation 2 puff inhalation Q 6H PRN 07/16/25 aerosol inhaler (Ventolin HFA) Shortness Of Breath #18 grams blood sugar diagnostic (True #100 ea 07/16/25 Metrix Glucose Test Strip) cholecalciferol (vitamin D3) 1,250 50,000 unit PO .onc e weekly #4 caps 07/16/25 mcg (50,000 unit) capsule famotidine 40 mg tablet 40 mg PO BID #60 tabs glipizide 5 mg tablet See Rx Instructions .Route 1 .COMPLEX #90 tabs lisinopril 5 mg tablet 5 mg PO DAILY #90 tabs 07/16 levothyroxine 88 mcg tablet See Rx Instructions .Route 09/09/25 .COMPLEX #30 tabs loratadine 10 mg tablet See Rx Instructions .Route 1 11/10/24 .COMPLEX #90 tabs pen needle, diabetic 32 gauge x #100 ea 09/09/25 (Odalys 2nd Gen Pen Needle) insulin glargine 100 unit/mL (3 See Rx Instructions .R oute 09/23/25 mL) subcutaneous pen (Lantus .COMPLEX #15 mL Solostar U-100 Insulin) metronidazole 500 mg tablet 500 mg PO BID 10 days #20 tabs 10/02/25 ondansetron 4 mg disintegrating 4 mg PO Q6H PRN nausea and 10/02/25 tablet vomiting #14 tabs Allergies Allergy/AdvReac Type Severity Reaction Status Date / Time codeine Allergy Severe headache, Verified 10/02/25 19:09 seizures, tremors iodine Allergy Severe throat Verified 10/02/25 19:09 closes meperidine Allergy Severe heart Verified 10/02/25 19:09 attack pentazocine Allergy Severe passing out Verified 10/02/25 19:09 pyridostigmine Allergy Severe shock Verified 10/02/25 19:09 shellfish derived Allergy Severe throat Verified 10/02/25 19:09 closes doxycycline Allergy Intermediate ALGY-Hives Verified 10/02/25 19:09 metformin Allergy Intermediate diarrhea Verified 10/02/25 19:09 nitrofurantoin (From Allergy Intermediate ALGY-Rash Verified 10/02/25 19:09 Macrobid) pantoprazole Allergy Intermediate diarrhea, Verified 10/02/25 19:09 abdominal pain, double vision, muscle weakness atorvastatin (From Lipitor) Allergy Unknown Unknown Verified 10/02/25 19:09 ciprofloxacin (From Cipro) Allergy Unknown Unknown Verified 10/02/25 19:09 Estrogens Allergy Unknown Unknown Verified 10/02/25 19:09 fluticasone (From Advair Allergy Unknown Unknown Verified 10/02/25 19:09 Diskus) morphine Allergy Unknown Unknown Verified 10/02/25 19:09 salmeterol (From Advair Allergy Unknown Unknown Verified 10/02/25 19:09 Diskus) Penicillins Allergy rash, Verified 10/02/25 19:09 breathing problems triamcinolone AdvReac Severe Unknown Verified 10/02/25 19:09 PFSH ED 2 PFSH: Medical History (Updated 10/02/25 @ 22:55 by Stevie Contreras DO) Cutaneous melanoma Enrolled in chronic care management Essential (primary) hypertension Arteriosclerotic vascular disease Myasthenia gravis Essential tremor Excessive daytime sleepiness Vitamin D deficiency B12 deficiency Acquired hypothyroidism Dyslipidemia Anxiety Neuropathy Colon polyp Osteoporosis Osteoarthritis of sacroiliac joint Esophageal thickening Positive skin test for tuberculosis Lung nodule LLL 4-5 mm, new nodule in right upper lobe Surgical History History of melanoma excision (11/11/22) Wide local excision of melanoma Hx of hysterectomy, total (~1974) Hx of oral surgery Hx of appendectomy Hx of tonsillectomy History of bunionectomy Hx of arthroscopy of right knee Hx of cholecystectomy Family History Father , age 67 Stroke Cancer lung Lung disease Mother Cancer melanoma, pancreatic CAD (coronary artery disease), Onset Age: 82 multiple stents ID Family/Other CAD (coronary artery disease) Chronic kidney disease (CKD) Diabetes Lung disease Sister CAD (coronary artery disease) Brother Stroke Brother Melanoma Denies family history of Clotting disorder Dementia Suicide Anesthesia complication Bleeding disorder Social History Smoking and tobacco/nicotine status: former use of tobacco/nicotine Second hand smoke exposure: Yes (exposure to heavy tobacco smoke) Alcohol intake: never Substance/Drug Use: never Lives independently: Yes Household members: none Housing: Apartment Current occupational status: retired Current gender identity: Female Kalie/Mormonism: [employer] Female Reproductive History: Para: 2 Physical Exam 2 Const: COMMON NORMALS: no acute distress GENERAL APPEARANCE: cooperative; not ill appearing and not frail appearing HENMT: COMMON NORMALS: normocephalic, atraumatic and Normal external nose present HEAD & SCALP: normocephalic and atraumatic FACE & SINUS: normal facial exam and face symmetric NOSE: Normal external nose present Eye: COMMON NORMALS: Equal, round and reactive pupils present and EOMs intact bilaterally PUPIL: Yes Equal, round and reactive pupils present Neck/C-Spine: GENERAL: Yes trachea midline Chest: CHEST: Yes Symmetrical chest wall rise Resp: COMMON NORMALS: normal respiratory effort, No retractions, No use of accessory muscles and clear to auscultation bilaterally AUSCULTATION: clear to auscultation bilaterally Cardio: COMMON NORMALS: regular rate and regular rhythm RATE: regular rate RHYTHM: regular rhythm GI: COMMON NORMALS: Normal to inspection, nondistended, normoactive bowel sounds present PALPATION: Yes Tenderness to palpation present (GI) (diffusely) Extremity: COMMON NORMALS: no pedal edema Neuro: NGUYỄN COMA SCALE: document GCS findings [place] coma scale eye opening: Spontaneous Nguyễn coma scale verbal response: Orientated [place] coma scale motor response: Obey commands Nguyễn coma scale total score: 15 S ENSORY EXAM: Yes extremities (intact) Psych: COMMON NORMALS: speech normal SPEECH: Yes normal speech Skin: COMMON NORMALS: no rashes or lesions noted GENERAL SKIN EXAM: no rashes or lesions noted Course 2 Vital Signs: Vital signs: Vital Signs Temperature 98.2 F 10/02/25 19:05 Pulse Rate 93 10/02/25 23:20 Respiratory Rate 18 10/02/25 19:05 Blood Pressure 127/88 10/02/25 23:20 Pulse Oximetry 98 10/02/25 23:20 Oxygen Delivery Me thod Room Air 10/02/25 22:45 MDM - Abdominal Pain Medical Decision Making Vitals are stable here. She is afebrile. CBC is normal. BMP is normal. CRP is only 9. CT shows fluid within nondilated small bowel and proximal large bowel which is likely an enteritis/diarrheal illness. She has been taking Pepcid without much relief. Will place her on Zofran, antibiotics given the duration of her illness. Lab Data 10/02/25 21:49 10/02/25 21:49 Labs/Radiology: Radiology Impressions Abdomen/Pelvis CT 10/02/25 21:05 IMPRESSION: 1. Fluid within nondilated small and proximal large bowel is nonspecific but may be seen in the setting of diarrheal illness. 2. Additional chronic and incidental findings as above. COMMENTS: Consistent with the [employer]'s Incidental Findings Committee white paper (J Am Silvano Radiol 2018): Any incidental renal lesion less than 1 cm or classified as too small to characterize, or any incidental cystic renal lesion characterized as simple-appearing, is likely benign. No follow-up imaging is recommended for these lesions per consensus recommendations based on imaging criteria. Chest X-Ray 10/02/25 21:05 IMPRESSION: No acute findings. Laboratory Results WBC 10.47 10^3/uL (3.29-11.43) 10/02/25 21:49 RBC 4.01 10^6/uL (3.85-5.65) 10/02/25 21:49 Hgb 13.10 g/dL (11.27-16.99) 10/02/25 21:49 Hct 39.5 % (36-47) 10/02/25 21:49 MCV 98.5 fl (85-98) H 10/02/25 21:49 MCH 32.7 pg (27-33) 10/02/25 21:49 MCHC 33.2 g/dL (30-55) 10/02/25 21:49 RDW 13.2 % (12.1-15.1) 10/02/25 21:49 Plt Count 217 10^3/cmm (157-399) 10/02/25 21:49 MPV 10.9 fL (7.4-10.4) H 10/02/25 21:49 Neut % (Auto) 74.7 % 10/02/25 21:49 Lymph % (Auto) 14.6 % 10/02/25 21:49 [place] % (Auto) 7.2 % 10/02/25 21:49 Eos % (Auto) 2.7 % 10/02/25 21:49 Baso % (Auto) 0.5 % 10/02/25 21:49 Neut # (Auto) 7.83 10^3/uL (1.8-7.7) H 10/02/25 21:49 Lymph # (Auto) 1.5 10^3/uL (0.8-4.8) 10/02/25 21:49 [place] # (Auto) 0.8 10^3/uL (0.2-0.9) 10/02/25 21:49 Eos # (Auto) 0.3 10^3/uL (0.0-0.8) 10/02/25 21:49 Baso # (Auto) 0.1 10^3/uL (0.0-0.1) 10/02/25 21:49 Nucleated RBC % (auto) 0 % 10/02/25 21:49 Nucleated RBCs # 0.0 /100WBC 10/02/25 21:49 Sodium 138 mmol/L (136-145) 10/02/25 21:49 Potassium 4.7 mmol/L (3.5-5.1) 10/02/25 21:49 Chloride 103 mmol/L (98-107) 10/02/25 21:49 Carbon Dioxide 24 mmol/L (22-29) 10/02/25 21:49 Anion Gap 15.7 (5-19) 10/02/25 21:49 BUN 14 mg/dL (8-23) 10/02/25 21:49 Creatinine 1.0 mg/dL (0.5-0.9) H 10/02/25 21:49 GFR Calculation Not Reportable 10/02/25 21:49 Glucose 242 mg/dL (65-115) H 10/02/25 21:49 Calculated Osmolality 294 mOsm/kg (285-295) 10/02/25 21:49 Lactic Acid 2.1 mmol/L (0.5-2.2) 10/02/25 21:49 Calcium 8.8 mg/dL (8.5-10.5) 10/02/25 21:49 Total Bilirubin 0.4 mg/dL (0.15-1.2) 10/02/25 21:49 AST 12 U/L (0-32) 10/02/25 21:49 ALT 12 U/L (0-33) 10/02/25 21:49 Alkaline Phosphatase 73 U/L (35-105) 10/02/25 21:49 C-Reactive Protein 9.2 mg/L (0.0-4.9) H 10/02/25 21:49 Total Protein 7.0 g/dL (6.6-8.7) 10/02/25 21:49 Albumin 4.1 g/dL (3.5-5.2) 10/02/25 21:49 Globulin 2.9 g/dL (1.3-4.6) 10/02/25 21:49 Lipase 14 U/L (13-60) 12/25/25 21:49 Urine Color Yellow (Yellow) 10/02/25 21:10 Urine Appearance Clear (CLEAR) 10/02/25 21:10 Urine pH TNP 10/02/25 21:10 Ur Specific [place] Not Reportable 10/02/25 21:10 Urine Protein Not Reportable 10/02/25 21:10 Urine Glucose (UA) Not Reportable 10/02/25 21:10 Urine Ketones Not Reportable 10/02/25 21:10 Urine Blood Not Reportable 10/02/25 21:10 Urine Nitrate Not Reportable 10/02/25 21:10 Urine Bilirubin Not Reportable 10/02/25 21:10 Urine Urobilinogen Not Reportable 10/02/25 21:10 Ur Leukocyte Esterase Not Reportable 10/02/25 21:10 Urine RBC 0-2 /hpf (0-2) 10/02/25 21:10 Urine WBC 21-50 /hpf (0-5) H 10/02/25 21:10 Ur Squamous Epith Cells 0-5 /hpf (0-5) 10/02/25 21:10 Amorphous Sediment Not Reportable 10/02/25 21:10 Urine Bacteria None seen /hpf (NONE) 10/02/25 21:10 Hyaline Casts 0.40 /lpf 10/02/25 21:10 All radiology interpretation(s) finalized by discharge Discharge Plan Discharge Patient Disposition: Home Clinical Impression: Enteritis Condition: Stable Prescriptions: New ondansetron 4 mg tablet,disintegrating 4 mg PO Q6H PRN (Reason: nausea and vomiting) Qty: 14 0RF metronidazole 500 mg tablet 500 mg PO BID 10 Days Qty: 20 0RF No Action ascorbate calcium (vitamin C) 500 mg tablet 500 mg PO DAILY sennosides-docusate sodium 8.6-50 mg tablet 1 tab-cap PO BID PRN (Reason: constipation) lisinopril 5 mg tablet 5 mg PO DAILY Qty: 90 1RF glipizide 5 mg tablet See Rx Instructions .ROUTE .COMPLEX Qty: 90 1RF Dose Instruction: TAKE ONE TABLET BY MOUTH DAILY Rx Instructions: TAKE ONE TABLET BY MOUTH DAILY famotidine 40 mg tablet 40 mg PO BID Qty: 60 0RF (DME) True Metrix Glucose Test Strip Strip See Rx Instructions .ROUTE .COMPLEX Qty: 100 11RF Dose Instruction: USE TO test blood sugar THREE TIMES DAILY Rx Instructions: USE TO test blood sugar THREE TIMES DAILY albuterol sulfate [Ventolin HFA] 90 mcg/actuation HFA aerosol inhaler 2 puff INHALATION Q6H PRN (Reason: Shortness Of Breath) Qty: 18 0RF cholecalciferol (vitamin D3) 1,250 mcg (50,000 unit) capsule 50,000 unit PO .once weekly Qty: 4 2RF mecobalamin (vitamin B12) 1,000 mcg tablet,disintegrating 1,000 mcg sublingual DAILY Qty: 100 0RF Rx Instructions: place tablet under tongue and allow to dissolve for at least30 secs before swallowing nitroglycerin [Nitrostat] 0.4 mg tablet, sublingual 0.4 mg SUBLINGUAL Q5M PRN (Reason: Chest Pain) Qty: 20 4RF fluticasone propionate 50 mcg/actuation spray,suspension 2 spray intranasal DAILY Qty: 16 3RF Rx Instructions: administer into each nostril (DME) pen needle, diabetic [Odalys 2nd Gen Pen Needle] 32 gauge x 5/32 needle See Rx Instructions .ROUTE .COMPLEX Qty: 100 1RF Dose Instruction: USE with insulin Rx Instructions: USE with insulin levothyroxine 88 mcg tablet See Rx Instructions .ROUTE .COMPLEX Qty: 30 1RF Dose Instruction: TAKE 1 TABLET BY MOUTH ONCE DAILY Rx Instructions: TAKE 1 TABLET BY MOUTH ONCE DAILY loratadine 10 mg tablet See Rx Instructions .ROUTE .COMPLEX Qty: 90 1RF Dose Instruction: TAKE ONE TABLET BY MOUTH DAILY NEEDED FOR allergy symptoms Rx Instructions: TAKE ONE TABLET BY MOUTH DAILY NEEDED FOR allergy symptoms insulin glargine [Lantus Solostar U-100 Insulin] 100 unit/mL (3 mL) insulin pen See Rx Instructions .ROUTE .COMPLEX Qty: 15 1RF Dose Instruction: inject 40 units SUBCUTANEOUSLY once a day Rx Instructions: inject 40 units SUBCUTANEOUSLY once a day Discharge Orders: Discharge ED (Routine); Ordered 10/02/25 Ordered By: Stevie Contreras Referrals: Marifer Weiss FNP-C [Primary Care Provider, Family Practice] - 4-7 days Patient Instructions: Abdominal Pain (ED), Enteritis (ED), Opioid Safety, Pain Management, Patient Portal & [place] Instructions Activity Restrictions/Additional Instructions: Take nausea medication scheduled every 6 hours while awake for the first 2 days, then as needed antibiotics as directed. Return for any problems. Call your doctor tomorrow for follow-up appointment. Further outpatient testing, such as a scope, could be necessary if symptoms do not resolve Print Language: Romansh Coding Level of Care Code ED Tactical Debriefer for Marcela Orona
[2025-10-02] MEDS: ondansetron 2 mg/ML SDV 2 mL 4 MG IVP (22:41)
[2025-10-02] MEDS: lidocaine 2% viscous 15 ML, aluminum-mag hydrox-simethicon 30 ML, sucralfate oral liq 1 GM PO (22:42)
[2025-10-02 22:45] VITALS: PULSE 92; O2SAT 97
[2025-10-02 23:20] VITALS: BP 127/88; PULSE 93; O2SAT 98
[2025-10-02 23:43] LABS: Reflex Lactate Order REFLEX LACTIC ORDERD
== END 2025-10-02 23:21 | disposition home or self-care (01) ==
PROVIDERS: Emergency Provider Emergency Medicine; PCP Nurse Practitioner Family
DX: K52.9 Noninfective gastroenteritis and colitis, unspecified (principal); Z79.4 Long term (current) use of insulin; Z87.891 Personal history of nicotine dependence; I10 Essential (primary) hypertension; E78.5 Hyperlipidemia, unspecified
CPT/HCPCS: 36415; 71045; 74176; 80053; 81001; 83605; 83690; 85025; 86140; 87086; 96374; 96375; 99285; J1885; J2405; J9999